=== PATIENT | female | born 1965 | race Caucasian/White ===

== ENCOUNTER 2023-03-19 12:02 | Outpatient (REF) | payer OTHER, SELFPAY ==
[2023-03-19 14:18] LABS: Erythrocyte Sedimentation Rate 23 MM/HR (0-20)
[2023-03-19 14:29] LABS: Alanine Aminotransferase 73 U/L (0-31); Albumin Level 4.4 g/dL (3.5-5.0); Alkaline Phosphatase 116 U/L (39-117); Anion Gap 17 (12-20); Aspartate Amino Transferase 144 U/L (5-31); Bilirubin Total 0.7 mg/dL (0.0-1.0); Blood Urea Nitrogen 5 mg/dL (9-16); C Reactive Protein 2.23 mg/dL (< or = 0.50); Calcium 10.2 mg/dL (8.4-10.2); Carbon Dioxide 27 mmol/L (22-29); Chloride 98 mmol/L (96-108); Cholesterol 215 mg/dL (<200); Estimated Glomerular Filt Rate > 60; Glucose Random 87 mg/dL (60-115); HDL Cholesterol 38 mg/dL (>40); LDL Cholesterol Calculated 152 mg/dL (<100); Potassium 2.6 mmol/L (3.3-5.1); Sodium 139 mmol/L (135-145); Total Protein 8.5 g/dL (6.5-8.0); Triglycerides 129 mg/dL (<150)
== END 2023-03-19 12:03 | disposition home or self-care (01) ==
LOC: HO.HHCL 12:02
PROVIDERS: Visit Provider General Practice
DX: I10 Essential (primary) hypertension (principal); M25.511 Pain in right shoulder; M25.512 Pain in left shoulder
CPT/HCPCS: 36415; 73030; 80053; 80061; 85652; 86140

== ENCOUNTER 2023-09-12 14:14 | Outpatient (REF) | payer MEDICAID, SELFPAY ==
[2023-09-12 16:50] LABS: MANUAL DIFF FLAG NO
[2023-09-12 17:05] LABS: Alanine Aminotransferase 86 U/L (0-31); Albumin Level 4.7 g/dL (3.5-5.0); Alkaline Phosphatase 113 U/L (39-117); Anion Gap 16 (12-20); Aspartate Amino Transferase 116 U/L (5-31); Bilirubin Total 0.5 mg/dL (0.0-1.0); Blood Urea Nitrogen 12 mg/dL (9-16); C Reactive Protein 1.01 mg/dL (< or = 0.50); Calcium 10.3 mg/dL (8.4-10.2); Carbon Dioxide 25 mmol/L (22-29); Chloride 102 mmol/L (96-108); Estimated Glomerular Filt Rate > 60; Glucose Random 111 mg/dL (60-115); Potassium 3.4 mmol/L (3.3-5.1); Sodium 140 mmol/L (135-145); Total Protein 8.9 g/dL (6.5-8.0)
[2023-09-12 17:23] LABS: Basophils Absolute Auto 0.1 X10*3/uL (0.0-0.2); Basophils Percent Auto 0.4 % (0-2); Eosinophils Absolute Auto 0.1 X10*3/uL (0.0-0.4); Hematocrit 44.7 % (37.0-47.0); Hemoglobin 15.1 g/dl (12.0-16.0); Imm Gran Abs Auto 0.06 X10*3/uL (0.00-0.03); Imm Gran Pct Auto 0.4 % (0.0-0.4); Lymphocytes Absolute Auto 3.2 X10*3/uL (1.2-4.9); Lymphocytes Percent Auto 23.1 % (20-40); Mean Corpuscular HGB Conc 33.8 g/dl (31.0-35.0); Mean Corpuscular Volume 97.8 fL (80.0-98.0); Monocytes Absolute Auto 0.6 X10*3/uL (0.1-1.2); Monocytes Percent Auto 4.5 % (2-11); Neutrophils Absolute Auto 9.6 x10*3/uL (2.0-8.3); Neutrophils Percent Auto 70.6 % (45-73); Platelet Count 236 X10*3/uL (160-400); Red Blood Count 4.57 X10*6/uL (4.20-5.50); Red Cell Distribution Width 12.4 % (11.0-16.0); White Blood Count 13.6 X10*3/uL (4.8-10.8)
[2023-09-12 18:07] LABS: Folate > 20.0 ng/mL (> or = 4.0); Vitamin B12 287 pg/mL (200-900)
[2023-09-12 18:54] LABS: Erythrocyte Sedimentation Rate 32 MM/HR (0-20)
[2023-09-15 09:28] LABS: RPR Rapid Plasma Reagin NON-REACTIVE (NON-REACTIVE)
[2023-09-16 17:58] LABS: CK-BB None Detected (None Detected); CK-MB 0 % (<5); CK-MM 100 % (95-100); Creatine Kinase,Total,Serum 38 U/L (29-143)
== END 2023-09-12 14:15 | disposition home or self-care (01) ==
LOC: HO.HHCL 14:14
PROVIDERS: Visit Provider General Practice
DX: E87.6 Hypokalemia (principal); G62.9 Polyneuropathy, unspecified
CPT/HCPCS: 36415; 80053; 82552; 82607; 82746; 85025; 85652; 86140; 86592

== ENCOUNTER 2024-08-09 08:54 | Outpatient (REF) | payer MEDICAID, SELFPAY ==
--- OUTSIDE RECORDS SUMMARY | 2024-08-09 09:25 | XMS_ITS | Encounter Summary ---
Author Organization [employer] Address [address] [place] [address] Care Team Providers Care Die Presser Name Role Phone Alissa Farnsworth MD Primary Care Provider [phone] Reason for Visit * Reason Comments Med Refill Encounter Details Date Type Department Care Team (Late st Contact Info) Description 07/31/2024 Refill [facility] MEDICINE [address] [place], [place] [id number] Alissa Farnsworth MD [address] [place] [address] Hypokalemia Social History Tobacco Use Types Packs/Day Years Used Date Smoking Tobacco: Every Day Cigarettes Smokeless Tobacco: Never Alcohol Use Standard Drinks/Week Comments Yes 2 (1 standard drink = 0.6 oz pur e alcohol) Depression Answer Date Recorded Patient Health Questionnaire-9 Score 12 07/26/2024 Patient Health Questionnaire-9 Score 12 07/26/2024 Last PHQ-9: Questionnaire Data Not on file 0 07/26/2024 Housing Stability Answer Date Recorded What is your housing situation today? I have arlene ochoa 07/26/[address] you li ve. Do you have problems with any of the following? None of the above 07/26/2024 Food Insecurity Answer Date Recorded Within the past 12 months, y ou worried that your food would run out before you got money to buy more: Never True 07/26/2024 Within the past 12 months,th e food you bought just didn't last and you didn't have enough money to get more: Never True 03/2025 Transportation Answer Date Recorded In the past 12 months, has l ack of transportation kept you from medical appts, meetings, work or from getting things needed for daily living? No 07/26/2024 Utilities Answer Date Recorded In the past 12 months, has t he electric, gas, oil or water company threatened to shut off services in your home? No 07/26/2024 Depression Answer Date Recorded Patient Health Questionnaire-2 Score 2 07/26/2024 Internet Access Answer Date Recorded Internet Access Q1 Yes 07/26/2024 Internet Access Q2 Not on file 07/26/2024 Comments Unknown Sex and Gender Information Value Date Recorded Sex Assigned at Female 01/07/2023 11:56 AM EDT Legal Sex Female 11:55 AM EDT Gender Identity Female 01/07/2023 11:56 AM EDT Sexual Orientation Choose not to disclose 2022 12:08 PM EDT Sexual Orientation Straight 02/01/2023 12 :08 PM EDT documented as of this encounter Plan of Treatment Upcoming Encounters Date Type Department Care Team (Late st Contact Info) Description 09/06/2024 9:15 AM EDT Office Visit [facility] MED & PEDS [address] [place] [address] Syed Ceron MD [address] [place], [place] [phone] documented as of this encounter Visit Diagnoses Diagnosis Hypokalemia Hypopotassemia documented in this encounter Additional Health Concerns Assessment Noted Time PHQ-9 Depression Total Score: 12 025 4:01 PM EST documented as of this encounter Care Teams Die Presser Relationship Specialty Start Date End Date Alissa Farnsworth MD [address] [place] [address] PCP - General Family Medicine 02/01/23 documented as of this encounter
--- OUTSIDE RECORDS SUMMARY | 2024-08-09 09:25 | XMS_ITS | Encounter Summary ---
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 Encounter Details Date Type Department Care Team ([facility] Contact Info) Description 07/30/2024 1:45 PM EST Telemedicine [facility] MEDICINE [address] [place] [address] Syed Ceron MD [address] [place] [address] Severe alcohol use disorder (CMS/HCC) (Primary Dx); Tobacco abuse Social History Tobacco Use Types Packs/Day Years [...] PM EDT documented as of this encounter Progress Notes * Syed Ceron MD - 07/30/2024 1:45 PM EST AUD PHYSICIAN TELE-VISIT INTAKE 07/30/2024 DSM-5 AUD Score: 10 (severe) Patient presents for AUD intake via Tele-Visit due to transportation issue. Patient with a long history of alcohol use disorder. Interested in starting Naltrexone PO for MAT. PCP previously prescribed this medication, but states she never started the medication at the time. Alcohol use started in the early 20's. The use became heavy in the late 30's when she went through divorce and custody issues. Use became even heavier at the onset of the COVID-19 pandemic. Was drinking 5-6 mixed drinks daily, now down to 2-3 drinks daily. States never had a day without alcohol in the past 5 years. No issues with opiates or cocaine. Currently smokes 1/4 PPD. Interested in Nicotine substitute. 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 Had several falls, resulting in subduralhematoma and left wrist fracture, s/p ORIF (11/2022). Never had inpatient detox, but may have been under a [facility] protocol during hospital admission for medical issues. Never had residential rehabilitation. Also she was never diagnosed with seizure, she found herself fallen few times (with LOC) with unexplained bruising, tongue laceration, and urine incontinence. These were not witnessed. Not sure of any alcohol-withdrawal seizure or DT in the past. [facility] EEG was done by Neurology (was told inconclusive). Lives with her monogamous AMAB partner of 7 years. [facility] she had negative STI screening previously. Also lives with her partner's son. Both supportive of her endeavor for alcohol recovery. She was recently started on Gabapentin for pain, but reports the medication has been helpful with her balance/gait and alcohol craving as well. She feels her balance is about 70% back to baseline (marbella was 20%). Patient doesn't have access to internet and camera for video. Patient gave verbal consent to be seen in this manner. A complete assessment and plan is detailed in the note, all of which were conducted remotely using virtual technology; video was offered but patient was unable to support video techno logy. Patient identity was verbally confirmed with 2 identifiers at the start of the visit. Patientverbalized being located in the [facility] during the televisit. Provider was located in an Ambulatory exam room at a secure location during the visits. Review of Systems Psychiatric/Behavioral: Negative for behavioral problems and dysphoric mood. The patient is not nervous/anxious. Physical Exam Pulmonary: Effort: Pulmonary effort is normal. Neurological: Mental Status: She is alert. Psychiatric: Mood and Affect: Mood normal. Behavior: Behavior normal. 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 Diagnoses and all orders for this visit: Severe alcohol use disorder (CMS/HCC) (Primary) - CBC auto differential; Future - Comprehensive Metabolic Panel; Future - Prothrombin Time-INR; Future - Hepatitis B Surface Antibody, Qualitative; Future - Hepatitis A Antibody, Total; Future - Hepatitis C Antibody with Reflex to HCV, RNA, Quantitative, Real-Time PCR; Future - Vitamin B12/Folate, Serum Panel; Future Tobacco abuse - nicotine (Nicoderm, Step 3) 7 MG/24HR patch; Place 1 patch on the skin 1 (one) time each day at the same time. Remove before going to bed Patient with AUD presents virtually for an intake Has a scheduled in-person appointment on 08/09/2024 at [facility] Interested in MAT for his AUD Motivated to focus on her alcohol recovery journey Will check CBC, CMP, INR, and Vitamin B12/Folate Will check Hep A/B vaccine status Rx Nicotine patch 7mg/24hr for 1/4 PPD use Various MAT options reviewed Potential adverse effects of medications reviewed Reviewed risks, benefits and alternatives Discussed about the risks of alcohol withdrawal in a home setting, including DT, seizure and Gradual taper of alcohol recommended BH and AA support recommended CRS GBAT option reviewed Follow up on 08/09/2024 as scheduled Referral for BH therapy submitted by PCP (for MDD) Indications for ER and inpatient detox reviewed Advised to contact the clinic with any worsening symptoms This information has been disclosed to you from records protected by federal confidentiality rules (42 CFR Part 2). The federal rules prohibit you from making any further disclosure of information inthis record that identifies a patient as having or having had a substance use disorder either directly, by reference to publicly available information, or through verification of such identification by another person unless further disclosure is expressly permitted by the written consent of the individual whose information is being disclosed or as otherwise permitted by (see2.3.1). The federal rules restrict any use of the information to investigate or prosecute with regard to a crime any patient with a substance use disorder, except as provided at 2.12??(5) and 2.65. documented in this encounter Plan of Treatment Upcoming Encounters Date Type Department Care Team (Late st Contact Info) Description 09/06/2024 9:15 AM EDT Office Visit [facility] MED & PEDS [address] [place] [address] Syed Ceron MD [address] [place] [address] Scheduled Orders Name Type Priority Associated Diagnoses Orde r Schedule CBC auto differential Lab Routine Severe alcohol use disorder (CMS/HCC) Expected: 07/30/2024 (Approximate), Expires: 07/30/2025 Comprehensive Metabolic Panel Lab Routine Severe alcohol use disorder (CMS/HCC) Expected: 07/30/2024 (Approximate), Expires: 07/30/2025 Prothrombin Time-INR Lab Routine Severe alcohol use disorder (CMS/HCC) Expected: 07/30/2024, Expires: 07/30/2025 Hepatitis B Surface Antibody, Qualitative Lab Routine Severe alcohol use disorder (CMS/HCC) Expected: 07/30/2024 (Approximate), Expires: 07/30/2025 Hepatitis A Antibody, Total Lab Routine Severe alcohol use disorder (CMS/HCC) Expected: 07/30/2024 (Approximate), Expires: 07/30/2025 Hepatitis C Antibody with Reflex to HCV, RNA, Quantitative, Real-Time PCR Lab Routine Severe alcohol use disorder (CMS/HCC) Expected: 07/30/2024 (Approximate), Expires: 07/30/2025 Vitamin B12/Folate, Serum Panel Lab Routine Severe alcohol use disorder (CMS/HCC) Expected: 07/30/2024, Expires: 07/30/2025 documented as of this encounter Visit Diagnoses Diagnosis Severe alcohol use disorder (CMS/HCC)- Primary Tobacco abuse Tobacco use disorder documented in this encounter Additional Health Concerns Assessment Noted Time PHQ-9 Depression Total Score: 12 025 4:01 PM EST documented as of this encounter Care Teams Inside Sales Relationship Specialty Start Date End Date Alissa Farnsworth MD [address] [place] [address] PCP - General Family Medicine 02/01/23 documented as of this encounter
--- OUTSIDE RECORDS SUMMARY | 2024-08-09 09:25 | XMS_ITS | Encounter Summary ---
Author Organization [employer] Address [address] [place] [address] Care Team Providers Care Pediatric Speech Therapist Name Role Phone Alissa Farnsworth MD Primary Care Provider [phone] Encounter Details Date Type Department Care Team (Latest Contact Info) Description 07/26/2024 Travel Social History Tobacco Use Types Packs/Day Years [...] Description 09/06/2024 9:15 AM EDT Office Visit [facility] MED & PEDS [address] [place] [address] Syed Ceron MD [address] [place] [address] documented as of this encounter Visit Diagnoses Not on filedocumented in this encounter Additional Health Concerns Assessment Noted Time PHQ-9 Depression Total Score: 12 025 4:01 PM EST documented as of this encounter Care Teams Pediatric Speech Therapist Relationship Specialty Start Date End Date Alissa Farnsworth MD [address] [place] [address] PCP - General Family Medicine 02/01/23 documented as of this encounter
--- OUTSIDE RECORDS SUMMARY | 2024-08-09 09:25 | XMS_ITS | Encounter Summary ---
Author Organization [employer] Address [address] [place] [address] Care Team Providers Care Model Engine Mechanic Name Role Phone Alissa Farnsworth MD Primary Care Provider [phone] Encounter Details Date Type Department Care Team (Latest Contact Info) Description 07/30/2024 Travel Social History Tobacco Use Types Packs/Day [...] Description 09/06/2024 9:15 AM EDT Office Visit [facility] MED & PEDS [address] [place] [address] Syed Ceron MD [address] [place] [address] documented as of this encounter Visit Diagnoses Not on filedocumented in this encounter Additional Health Concerns Assessment Noted Time PHQ-9 Depression Total Score: 12 025 4:01 PM EST documented as of this encounter Care Teams Model Engine Mechanic Relationship Specialty Start Date End Date Alissa Farnsworth MD [address] [place] [address] PCP - General Family Medicine 02/01/23 documented as of this encounter
--- OUTSIDE RECORDS SUMMARY | 2024-08-09 09:25 | XMS_ITS | Encounter Summary ---
Author Organization [email or web address] Address [address] [place] [address] Care Team Providers Care Cartoon Artist Name Role Phone Alissa Farnsworth MD Primary Care Provider [phone] Encounter Details Date Type Department Care Team (Late Contact Info) Description 03/19/2023 Orders Only [facility] MEDICINE [address] [place] [id number] Alissa Farnsworth MD [address] [place] [address] Social History Tobacco Use Types Packs/Day Years Used Date Smoking Tobacco: Every Day Cigarettes Smokeless Tobacco: Never Alcohol Use Standard Drinks/Week Comments Yes 2 (1 standard drink = 0.6 oz pur e alcohol) Depression Answer Date Recorded Patient Health Questionnaire-9 Score 19 02/10/2023 Depression Answer Date Recorded Patient Health Questionnaire-2 Score 6 02/10/2023 Comments Unknown Sex and Gender Information Value [...] Encounters Date Type Department Care Team (Late Contact Info) Description 09/06/2024 9:15 AM EDT Office Visit [facility] MED & PEDS [address] [place] [address] Syed Ceron MD [address] [place] [address] documented as of this encounter Visit Diagnoses Not on filedocumented in this encounter Additional Health Concerns Assessment Noted Time PHQ-9 Depression Total Score: 19 023 10:36 PM EDT documented as of this encounter Care Teams Cartoon Artist Relationship Specialty Start Date End Date Alissa Farnsworth MD [address] [place] [address] PCP - General Family Medicine 02/01/23 documented as of this encounter
--- OUTSIDE RECORDS SUMMARY | 2024-08-09 09:25 | XMS_ITS | Encounter Summary ---
Author Organization [employer] Address [address] [facility] [address] [place] [address] Care Team Providers Care Bid Writer Name Role Phone Alissa Farnsworth MD Primary Care Provider [phone] Reason for Referral * Consultation (Routine) - Closed Specialty Diagnoses / Procedures Referred By Saul t Referred To Contact Behavioral Health Diagnoses Moderate episode of recurrent major depressive disorder (CMS/HCC) Anxiety Alissa Farnsworth MD [address] [place] [phone] Phone: tel: fax: Referral ID Status Reason Start Date Expiration Date V isits Requested Visits Authorized [id number] Closed Specialty Services Required 07/27/2024 07/27/2025 1 1 * Consultation (Urgent) - Closed Specialty Diagnoses / Procedures Referred By Contac t Referred To Contact Addiction Medicine Diagnoses Alcohol use disorder, moderate, dependence (CMS/HCC) Alissa Farnsworth MD [address] [place] [phone] Phone: tel: fax: Referral ID Status Reason Start Date Expiration Date V isits Requested Visits Authorized [id number] Closed Specialty Services Required 07/27/2024 07/27/2025 1 1 * Consultation (Routine) - Pending Review Specialty Diagnoses / Procedures Referred By Contac t Referred To Contact Audiology Diagnoses Mixed conductive and sensorineural hearing loss of both ears Alissa Farnsworth MD [address] [place] [address] Phone: tel: fax: [facility] Referral ID Status Reason Start Date Expiration Date Visits Requested Visits Authorized [id number] Pending Review Specialty Services Required 07/30/2024 07/30/2025 6 6 Reason for Visit * Reason Comments Follow-up Encounter Details Date Type Department Care Team (Latest Contact Info) Description 07/26/2024 4:00 PM EST Office Visit [facility] MEDICINE [address] [place] [address] [phone] Alissa Farnsworth MD [address] [place] [address] [phone] Gait instability (Primary Dx); Encounter for immunization; Alcohol use disorder, moderate, dependence (CMS/HCC); Moderate episode of recurrent major depressive disorder (CMS/HCC); Anxiety; Mixed conductive and sensorineural hearing loss of both ears Social History Tobacco Use Types Packs/Day Years Used Date Smoking Tobacco: Every Day Cigarettes Smokeless Tobacco: Never Tobacco Cessation:Ready to Q uit: Not Asked; Counseling Given: Not Answered Alcohol Use Standard Drinks/Week Comments Yes 2 [...] PM EDT documented as of this encounter Last Filed Vital Signs Vital Sign Reading Time Taken Comments Blood Pressure 161/79 07/26/2024 3:58 PM EST Pulse 92 07/26/2024 3:58 PM EST Temperature 37.1 ??C (98.7 ??F) 07/26/2024 3:58 PM ES T Respiratory Rate 16 07/26/2024 3:58 PM EST Oxygen Saturation 100% 07/26/2024 3:58 PM EST Inhaled Oxygen Concentration - - Weight 57.2 kg (126 lb) 07/26/2024 3:58 PM EST Height 160 cm (5' 3 ) 07/26/2024 3:58 PM EST Body Mass Index 22.32 07/26/2024 3:58 PM EST documented in this encounter Progress Notes * Alissa Farnsworth MD - 07/26/2024 4:00 PM EST SUBJECTIVE: Mathew Herrmann is a 58 y.o. year old female who presents for chronic disease management. Denies recent illness, ER visit, or hospitalization. Acute Concerns: Hearing test, L side worse. Audiology to [facility] Referral back to for BE Referral to Dr Licea Interim Updates: Interim Updates: Alcohol induced gait disorder S/P multiple falls Hospitalized at [facility] for fall down flight of stairs (December 2022), with brain bleed and L wrist s/p ORIF Having trouble walking, her legs feel like lead, L more than R, she cannot drive, walks with woodenstiff posture. Pain feels worse and like it is moving upwards. Cannot go up and down stairs. 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 Paul HTN- BP 130s/80s at home, 161/79 here Did not take BP med today, denies CP, arm pain, SIMS Taking Amlodipine 5mg daily Anxiety Called for to start OP therapy referral process Infected teeth- awaiting extractions PSH: ORIF L wrist radius and ulnar fracture November 2022 Gallbladder removal BTL Breast biopsy- 2 years ago and benign results FH: Mom- stomach cancer Dad- larynx cancer GP from [facility] Health maintenance: Imms- accepts PCV20 today Colon- never, Cologuard ordered Pap- not since 1991 Mammo- 2020 last, due Eyes- not for years, referral placed 10/2023 Patient Active Problem List Diagnosis Alcohol use disorder, moderate, dependence (CMS/HCC) GERD (gastroesophageal reflux disease) Hypertension Tobacco abuse Anxiety Housing or economic circumstance MDD (major depressive disorder) MARTHA (generalized anxiety disorder) Healthcare maintenance Pain of both shoulder joints Screening for colon cancer Acute pain of both shoulders Encounter for screening mammogram for malignant neoplasm of breast Gait instability Vertebral artery stenosis, asymptomatic, right History reviewed. No pertinent surgical history. No family history on file. Social History Social History Narrative Lives with [employer] partner Unemployed, looking for work Review of Systems Constitutional: Negative. HENT: Negative. Respiratory: Negative. Cardiovascular: Negative. Musculoskeletal: Positive for gait problem. Neurological: Positive for weakness. Psychiatric/Behavioral: Positive for dysphoric mood. OBJECTIVE: Vitals: 07/26/24 1558 BP: (!) 161/79 BP Location: Right arm Patient Position: Sitting BP Cuff Size: Adult Pulse: 92 Resp: 16 Temp: 98.7 ??F (37.1 ??C) TempSrc: Temporal SpO2: 100% Weight: 126 lb (57.2 kg) Height: 5' 3 (1.6 m) Physical Exam Vitals and nursing note reviewed. Constitutional: Appearance: Normal appearance. HENT: Head: Normocephalic and atraumatic. Cardiovascular: Rate and Rhythm: Normal rate and regular rhythm. Pulses: Normal pulses. Heart sounds: Normal heart sounds. Pulmonary: Effort: Pulmonary effort is normal. Breath sounds: Normal breath sounds. Musculoskeletal: Comments: Unsteady gait, walking with cane and assistance from others Skin: General: Skin is warm and dry. Neurological: General: No focal deficit present. Mental Status: She is alert and oriented to person, place, and time. Mental status is at baseline. Motor: Weakness present. Gait: Gait abnormal. Psychiatric: Mood and Affect: Mood normal. Behavior: Behavior normal. ASSESSMENT/PLAN Problem List Items Addressed This Visit Alcohol use disorder, moderate, dependence (CMS/HCC) Relevant Orders Referral to CRS Alcohol Use Disease Anxiety Relevant Orders Referral to Behavioral Health MDD (major depressive disorder) Relevant Orders Referral to Behavioral Health Gait instability - Primary Other Visit Diagnoses Encounter for immunization Relevant Orders PCV-20 VACCINE 6 wks + (Completed) Mixed conductive and sensorineural hearing loss of both ears Relevant Orders Referral to Audiology Follow Up: 4 months or sooner prn No Known Allergies Current Outpatient Medications: potassium chloride ER (Micro-K) 10 MEQ ER capsule, TAKE 2 CAPSULES (20 MEQ) BY MOUTH IN THE MORNING. DO NOT CRUSH OR CHEW., Disp: , Rfl: acetaminophen (Tylenol) 500 MG tablet, TAKE 1 TABLET BY MOUTH EVERY 6 HOURS FOR 14 DAYS NEEDED FOR PAIN OR FEVER. TAKE WITH FOOD, Disp: , Rfl: amLODIPine (Norvasc) 5 MG tablet, Take 1 tablet (5 mg) by mouth Once per day., Disp: 90 tablet, Rfl: 3 aspirin 81 MG EC tablet, Take 1 tablet (81 mg) by mouth Once per day., Disp: 90 tablet, Rfl: 3 escitalopram (Lexapro) 5 MG tablet, Take 1 tablet (5 mg) by mouth Once per day., Disp: 30 tablet, Rfl: 2 fluticasone (Flonase) 50 MCG/ACT nasal spray, Administer 1-2 sprays into each nostril Once per day.Shake gently. Before first use, prime pump. After use, clean tip and replace cap., Disp: 16 g, Rfl:3 folic acid (Folvite) 1 MG tablet, Take 1 tablet (1 mg) by mouth Once per day., Disp: 90 tablet, Rfl: 3 gabapentin (Neurontin) 300 MG capsule, Take 1 capsule (300 mg) by mouth 3 times daily., Disp: 90 capsule, Rfl: 11 guaiFENesin (Mucinex) 600 MG 12 hr tablet, Take 2 tablets (1,200 mg) by mouth 2 times daily. Do notcrush, chew, or split., Disp: 120 tablet, Rfl: 11 ibuprofen 600 MG tablet, Take 1 tablet (600 mg) by mouth every 6 (six) hours., Disp: 90 tablet, Rfl: 3 sertraline (Zoloft) 50 MG tablet, Take 1 tablet (50 mg) by mouth Once per day., Disp: 90 tablet, Rfl: 3 triamcinolone (Kenalog) 0.1 % cream, Apply topically if needed in the morning and at bedtime (pain and swelling)., Disp: 30 g, Rfl: 2 Serbian Translation: Patient is bilingual and declines translation services documented in this encounter Plan of Treatment Upcoming Encounters Date Type Department Care Team (Late st Contact Info) Description 09/06/2024 9:15 AM EDT Office Visit [facility] MED & PEDS [address] [place] [phone] Syed Ceron MD [address] [place] [phone] Scheduled Referrals Name Type Priority Associated Diagnoses Orde r Schedule Referral to Audiology Outpatient Referral Routine Mixed conductive and sensorineural hearing loss of both ears Expected: 07/27/2024 (Approximate), Expires: 07/27/2025 Referral to CRS Alcohol Use Disease Outpatient Referral Urgent Alcohol use disorder, moderate, dependence (CMS/HCC) Expected: 07/27/2024 (Approximate), Expires: 07/27/2025 Referral to Behavioral Health Outpatient Referral Routine Moderate episode of recurrent major depressive disorder (CMS/HCC) Anxiety Expected: 07/27/2024 (Approximate), Expires: 07/27/2025 documented as of this encounter Visit Diagnoses Diagnosis Gait instability- Primary Abnormality of gait Encounter for immunization Alcohol use disorder, moderate, dependence ([facility]) Moderate episode of recurrent major depressive disorder ([facility]) Anxiety Anxiety state, unspecified Mixed conductive and sensorineural hearing loss of both ears documented in this encounter Additional Health Concerns Assessment Noted Time PHQ-9 Depression Total Score: 12 025 4:01 PM EST documented as of this encounter Care Teams Bid Writer Relationship Specialty Start Date End Date Alissa Farnsworth MD [address] [place] [address] PCP - General Family Medicine 02/01/23 documented as of this encounter
--- OUTSIDE RECORDS SUMMARY | 2024-08-09 09:25 | XMS_ITS | Encounter Summary ---
Author Organization [employer] Address [address] [place] [address] Care Team Providers Care Recovery Operator Name Role Phone Alissa Farnsworth MD Primary Care Provider [phone] Reason for Visit * Reason Onset Date Comments Call Back Request 11/28/2023 Encounter Details Date Type Department Care Team ([facility] st Contact Info) Description 11/28/2023 Telephone [facility] MEDICINE [address] [place], [place] [phone] Alissa Farnsworth MD [address] [place] [address] Call Back Request Social History Tobacco Use Types Packs/Day Years Used Date Smoking Tobacco: Every Day Cigarettes Smokeless Tobacco: Never Alcohol Use Standard Drinks/Week Comments Yes 2 (1 standard drink = 0.6 oz pur e alcohol) Depression Answer Date Recorded Patient Health Questionnaire-9 Score 19 02/10/2023 Housing Stability Answer Date Recorded What is your housing situation today? I have arlene ochoa 04/15/[address] you li ve. Do you have problems with any of the following? None of the above 04/15/2023 Food Insecurity Answer Date Recorded Within the past 12 months, y ou worried that your food would run out before you got money to buy more: Never True 04/15/2023 Within the past 12 months,th e food you bought just didn't last and you didn't have enough money to get more: Never True Transportation Answer Date Recorded In the past 12 months, has l ack of transportation kept you from medical appts, meetings, work or from getting things needed for daily living? No 04/15/2023 Utilities Answer Date Recorded In the past 12 months, has t he electric, gas, oil or water company threatened to shut off services in your home? No 04/15/2023 Depression Answer Date Recorded Patient Health Questionnaire-2 Score 6 02/10/2023 Comments Unknown Sex and Gender Information Value Date Recorded Sex Assigned at Female 01/07/2023 11:56 AM EDT Legal Sex Female 11:55 AM EDT Gender Identity Female 01/07/2023 11:56 AM EDT Sexual Orientation Choose not to disclose 2022 12:08 PM EDT Sexual Orientation Straight 02/01/2023 12 :08 PM EDT documented as of this encounter Miscellaneous Notes * Telephone Encounter - Ninoska Eddy - 11/28/2023 11:09 AM EDT Tc from pt requesting to speak with a nurse in regards to DTA form. States form was completed but when faxed, form was unreadable. Pt states called medical records to lease picker a copy but was told to contact PCP as they could not find form. Pt needs to turn in form as soon as possible. Please contact pt at [phone] documented in this encounter Plan of Treatment Upcoming Encounters Date Type Department Care Team (Late st Contact Info) Description 09/06/2024 9:15 AM EDT Office Visit [facility] MED & PEDS [address] [place] [address] Syed Ceron MD [address] [place] [address] documented as of this encounter Visit Diagnoses Not on filedocumented in this encounter Additional Health Concerns Assessment Noted Time PHQ-9 Depression Total Score: 19 023 10:36 PM EDT documented as of this encounter Care Teams Recovery Operator Relationship Specialty Start Date End Date Alissa Farnsworth MD [address] [place] [address] PCP - General Family Medicine 02/01/23 documented as of this encounter
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
--- OUTSIDE RECORDS SUMMARY | 2024-08-09 09:25 | XMS_ITS | Encounter Summary ---
Author Organization [employer] Address [address] [address] [place] [address] Care Team Providers Care Business Office Coordinator Name Role Phone Alissa Farnsworth MD Primary Care Provider [phone] Encounter Details Date Type Department Care Team (Latest Contact Info) Description 08/09/2024 Travel Social History Tobacco Use Types Packs/Day [...] Description 09/06/2024 9:15 AM EDT Office Visit [facility] MED & PEDS [address] [place] [address] Syed Ceron MD [address] [place] [address] documented as of this encounter Visit Diagnoses Not on filedocumented in this encounter Additional Health Concerns Assessment Noted Time PHQ-9 Depression Total Score: 12 025 4:01 PM EST documented as of this encounter Care Teams Business Office Coordinator Relationship Specialty Start Date End Date Alissa Farnsworth MD [address] [place] [address] PCP - General Family Medicine 02/01/23 documented as of this encounter
--- OUTSIDE RECORDS SUMMARY | 2024-08-09 09:25 | XMS_ITS | Clinical Summary ---
Author Organization [employer] Address [address] [place] [address] Care Team Providers Care Customer Greeter Name Role Phone Alissa Farnsworth MD Primary Care Provider [phone] Allergies No known active allergies Medications * This document contains information received from the source organization and may not represent a complete record from that organization. acetaminophen (Tylenol) 500 MG tablet TAKE 1 TABLET BY MOUTH EVERY 6 HOURS FOR 14 DAYS NEEDED FOR PAIN OR FEVER. TAKE WITH FOOD 11/21/19 23 Active triamcinolone (Kenalog) 0.1 % cream Apply topically if needed in the morning and at bedtime (pain and swelling). 30 g 2 09/12/19 24 Active sertraline (Zoloft) 50 MG tablet Take 1 tablet (50 mg) by mouth Once per day. 90 tablet 3 10/27/19 24 025 Active ibuprofen 600 MG tablet Take 1 tablet (600 mg) by mouth every 6 (six) hours. 90 tablet 3 07/26/19 25 Active escitalopram (Lexapro) 5 MG tablet Take 1 tablet (5 mg) by mouth Once per day. 30 tablet 2 07/26/19 25 025 Active aspirin 81 MG EC tablet Take 1 tablet (81 mg) by mouth Once per day. 90 tablet 3 07/26/19 25 Active folic acid (Folvite) 1 MG tablet Take 1 tablet (1 mg) by mouth Once per day. 90 tablet 3 07/26/19 25 026 Active amLODIPine (Norvasc) 5 MG tablet Take 1 tablet (5 mg) by mouth Once per day. 90 tablet 3 07/26/19 25 Active gabapentin (Neurontin) 300 MG capsule Take 1 capsule (300 mg) by mouth 3 times daily. 90 capsule 07/26/19 Active guaiFENesin (Mucinex) 600 MG 12 hr tablet Take 2 tablets (1,200 mg) by mouth 2 times daily. Do not crush, chew, or split. 120 tablet 07/26/19 Active fluticasone (Flonase) 50 MCG/ACT nasal spray Administer 1-2 sprays into each nostril Once per day. Shake gently. Before first use, prime pump. After use, clean tip and replace cap. 16 g 07/26/19 Active nicotine (Nicoderm, Step 3) 7 MG/24HR patchIndicatio ns:Nicotine Dependence Place 1 patch on the skin 1 (one) time each day at the same time. Remove before going to bed 28 patch 2 07/30/19 Active potassium chloride ER (Micro-K) 10 MEQ ER capsuleIndicat ions:Hypokalem ia TAKE 2 CAPSULES (20 MEQ) BY MOUTH IN THE MORNING. DO NOT CRUSH OR CHEW. 180 capsule 1 08/03/19 Active ibuprofen 600 MG tablet Take 1 tablet by mouth every 6 (six) hours. 11/21/19 025 Discontinued(Re order (will not trigger notification to Pharmacy)) amLODIPine (Norvasc) 5 MG tablet Take 1 tablet (5 mg) by mouth Once per day. 90 tablet 3 10/27/19 025 Discontinued(Re order (will not trigger notification to Pharmacy)) aspirin 81 MG EC tablet Take 1 tablet (81 mg) by mouth Once per day. 90 tablet 3 10/27/19 025 Discontinued(Re order (will not trigger notification to Pharmacy)) folic acid (Folvite) 1 MG tablet Take 1 tablet (1 mg) by mouth Once per day. 90 tablet 3 10/27/19 025 Discontinued(Re order (will not trigger notification to Pharmacy)) potassium chloride ER (Micro-K) 10 MEQ ER capsule TAKE 2 CAPSULES (20 MEQ) BY MOUTH IN THE MORNING. DO NOT CRUSH OR CHEW. 04/25/20 025 Discontinued Active Problems Problem Noted Date Diagnosed Date Gait instability 09/15/2023 Assessment & Plan (10/27/2023 12:07 PM EDT): L sided weakness; seeing neurology tomorrow Continue alcohol abstinence as much as possible Brain MRI today to rule out central lesion, demyelinating process Assessment & Plan (09/15/2023 6:10 AM EDT): Legs feel leaden She is dragging feet and not picking them up well Risk for falling Order front wheeled walker for stability Vertebral artery stenosis, asymptomatic, right 0 09/15/2023 Assessment & Plan (09/15/2023 6:13 AM EDT): Found on CT for stroke rule out 08/2023 at [facility] Neurology recommended outpatient MRI with and w/o gadolinium Healthcare maintenance 03/20/2023 Pain of both shoulder joints 03/20/2023 Assessment & Plan (03/20/2023 10:50 AM EDT): Frozen shoulder versus OA versus inflammatory disease Screening for colon cancer 03/20/2023 Acute pain of both shoulders 03/20/2023 Encounter for screening mamm ogram for malignant neoplasm of breast 03/20/2023 MDD (major depressive disorder) 02/06/2023 Assessment & Plan (03/12/2023 9:54 AM EDT): Patient with symptoms of anhedonia, depressed mood, sleep disturbance, fatigued, poor appetite, feelings of guilt, difficulty concentrating, nervousness, restlessness, jumpy, irritability, chronic worrying and fearfulness. Symptoms occur nearly everyday and have been present for the last six months in the context of employment insecurities, chronic pain and severe depression. Referral for OP individual services placed on 02/12 with Migel Brown [phone]. Mathew was also referred to the Calculus Professor program with [facility]. Patient agreed with the plan. At this time Mathew Herrmann meets criteria for Visit Diagnoses: Problem List Items Addressed This Visit Other Alcohol use disorder, moderate, dependence (CMS/HCC) MDD (major depressive disorder) MARTHA (generalized anxiety disorder) Patient ready to address current needs Yes Strengths include readiness and willingness to change. PLAN: 1. Follow up with [facility]: Not recommended for follow-up 2. Patient goal is to gradually stop alcohol consumption and start individual therapy. 3. Behavioral Recommendations a. OP individual therapy b. Referral for Calculus Professor with [facility] c. Incorporate self-care and coping skills into daily routine Assessment & Plan (02/11/2023 5:01 PM EDT): Patient with symptoms of anhedonia, depressed mood, sleep disturbance, fatigued, poor appetite, feelings of guilt, difficulty concentrating and restlessness. MARTHA screening shows symptoms of nervousness, restlessness and jumpy, irritability, chronic worrying and afraid of the future. Symptoms occur nearly everyday and have been present for the last six months in the context of employment insecurities and struggling with medical conditions. Patient will benefit from receiving OP individual therapy and joining alcoholic anonymous groups. At this time Mathew Herrmann meets criteria for Visit Diagnoses: Problem List Items Addressed This Visit Other Alcohol use disorder, moderate, dependence (CMS/HCC) Anxiety MDD (major depressive disorder) Patient ready to address current needs Yes Strengths include motivation to make positive changes in her life PLAN: 1. Follow up with [facility]: Not recommended for follow-up 2. Patient goal is to gradually stop drinking 3. Behavioral Recommendations a. Referral to OP individual therapy b. Join alcoholics groups c. Practice mindfulness techniques MARTHA (generalized anxiety disorder) 02/06/2023 Assessment & Plan (09/15/2023 6:10 AM EDT): Started Zoloft 50mg nightly Buspar 5mg prn up to TID Followup in 4 weeks via telephone Assessment & Plan (03/12/2023 9:54 AM EDT): Patient with symptoms of anhedonia, depressed mood, sleep disturbance, fatigued, poor appetite, feelings of guilt, difficulty concentrating, nervousness, restlessness, jumpy, irritability, chronic worrying and fearfulness. Symptoms occur nearly everyday and have been present for the last six months in the context of employment insecurities, chronic pain and severe depression. Referral for OP individual services placed on 02/12 with Migel Brown [phone]. Mathew was also referred to the Calculus Professor program with [facility]. Patient agreed with the plan. At this time Mathew Herrmann meets criteria for Visit Diagnoses: Problem List Items Addressed This Visit Other Alcohol use disorder, moderate, dependence (CMS/HCC) MDD (major depressive disorder) MARTHA (generalized anxiety disorder) Patient ready to address current needs Yes Strengths include readiness and willingness to change. PLAN: 1. Follow up with [facility]: Not recommended for follow-up 2. Patient goal is to gradually stop alcohol consumption and start individual therapy. 3. Behavioral Recommendations a. OP individual therapy b. Referral for Calculus Professor with [facility] c. Incorporate self-care and coping skills into daily routine Alcohol use disorder, moderate, dependence 02/01 Assessment & Plan (10/27/2023 12:07 PM EDT): In eraly remission Recommend continued abstinence to the greatest degree possible Assessment & Plan (09/15/2023 6:09 AM EDT): Cutting back on her own Knows about groups, medication aids Assessment & Plan (03/20/2023 10:50 AM EDT): Declines Naltrexone Will work with inhouse temporarily Consider AUD services at [facility] Assessment & Plan (02/01/2023 11:01 AM EDT): Declines AUD services Has Naltrexone 50mg daily, has not started it GERD (gastroesophageal reflux disease) 3 Hypertension 02/01/2023 Assessment & Plan (09/15/2023 6:09 AM EDT): Continue Amlodipine 5mg daily Check BP daily Walkin/ER for > 180/100 or symptomatic Can increase Amlodipine to 10mg if needed Assessment & Plan (02/01/2023 11:01 AM EDT): Resume Amlodipine 5mg daily Check BP daily Walkin/ER for > 180/100 or symptomatic Labs when she comes to first visit Tobacco abuse 02/01/2023 Assessment & Plan (09/15/2023 6:09 AM EDT): Down to 4-5 cigs per day Continue cutting back Assessment & Plan (02/01/2023 11:02 AM EDT): Wants to cut back on her own first Anxiety 02/01/2023 Assessment & Plan (02/01/2023 11:02 AM EDT): PHQ9 score 24, no SI/HI Physical pain and anxiety and stress over economic circumstances are compounding for her Housing or economic circumstance 02/01/2023 Assessment & Plan (02/01/2023 11:02 AM EDT): [facility] referral Encounters * This document contains information received from the source organization and may not represent a complete record from that organization. Date Type Department Care Team Description 08/09/2024 9:15 AM EST Office Visit [facility] [address] [place] [address] Syed Ceron MD Severe alcohol use disorder (CMS/HCC) (Primary Dx) 08/09/2024 Travel 08/06/2024 Telephone [facility] [address] [place] [address] Alissa Farnsworth MD Nurse Triage 07/31/2024 Refill [facility] [address] [place] [address] Alissa Farnsworth MD Hypokalemia 07/30/2024 1:45 PM EST Telemedicine [facility] [address] [place] [address] Syed Ceron MD Severe alcohol use disorder (CMS/HCC) (Primary Dx); Tobacco abuse 07/30/2024 Travel 07/29/2024 Travel 07/26/2024 4:00 PM EST Office Visit [facility] [address] [place] [address] Alissa Farnsworth MD Gait instability (Primary Dx); Encounter for immunization; Alcohol use disorder, moderate, dependence (CMS/HCC); Moderate episode of recurrent major depressive disorder (CMS/HCC); Anxiety; Mixed conductive and sensorineural hearing loss of both ears 07/26/2024 Travel from Last 3 Months Immunizations Name Administration Dates Next Due Influenza Injectable Quadriv alant Preservative Free IIV4 MDCK 05/25/2021 Influenza injectable quadrivalent preservative f ree 03/19/2023,03/11/2020 Influenza, IIV3, injectable 04/24/2017 Influenza, Injectable, MDCK, preservative free 1 07/08/2023 Pneumococcal Conjugate PCV 20 07/26/2024 Pneumococcal Polysaccharide PPSV23 04/24/2017 Social History Tobacco Use Types Packs/Day Years [...] t he electric, gas, oil or water [employer] threatened to shut off services in your [...] Orientation Straight 02/01/2023 12 :08 PM EDT Last Filed Vital Signs Vital Sign Reading [...] Mass Index 22.32 07/26/2024 3:58 PM EST Plan of Treatment Upcoming Encounters Date Type Department Care Team (Late st Contact Info) Description 09/06/2024 9:15 AM EDT Office Visit [facility] [address] [place] [address] Syed Ceron MD [address] [place] [address] Health Maintenance Due Date Last Done Comments CT Colonography 1967 Colonoscopy 1967 FIT 1967 FOBT 1967 HIV Screening 1967 Sigmoidoscopy 1967 Alcohol/Substance Use Screening 1979 Hepatitis C Screening 11/13/1985 DTaP/Tdap/Td Vaccines (1 - Tdap) 11/13/1986 Hepatitis A Vaccines (1 of 2 - Risk 2-dose series) 11/13/1986 Hepatitis B Vaccines (1 of 3 - 19+ 3-dose series) 11/13/1986 Pap Smear 11/13/1988 Cervical Cancer Screening 11/13/1997 HPV/Cotest 11/13/1997 Mammogram 2007 Zoster Vaccines (1 of 2) 11/13/2017 Depression Monitoring (PHQ-9) 01/23/2025 07/26/2024, 07/26/2024 Depression Screening 07/26/2025 07/26/2024, 07/26/19 25 SDOH Screening 07/26/2025 07/26/2024 Tobacco Screening 07/27/2025 07/27/2024 Colorectal Cancer Screening 04/14/2026 FIT DNA/Cologuard 04/14/2026 04/14/2023 Lipid Panel 03/19/2028 03/19/2023 RSV Patients and Patients Aged 60 years or older (1 - 1-dose 75+ series) 11/13/2042 Influenza Vaccine Completed 05/08/2024, , 05/25/2021, Additional history exists COVID-19 Vaccine Completed 07/03/2024, 03/2021, 11/04/2020, Additional history exists Pneumococcal Vaccine: 50+ Years Completed 07/26/2024, 04/24/2017 HIB Vaccines Aged Out No longer eligi ble based on patient's age to complete this topic HPV Vaccines Aged Out No longer eligi ble based on patient's age to complete this topic IPV Vaccines Aged Out No longer eligi ble based on patient's age to complete this topic Meningococcal Vaccine Aged Out No andreea brady eligible based on patient's age to complete this topic RSV under 20 months Aged Out No longe r eligible based on patient's age to complete this topic Rotavirus Vaccines Aged Out No longer eligible based on patient's age to complete this topic Procedures Procedure Name Priority Date/Time Associated Diagnosis Comments POCT ALFA-14 URINE DRUG SCREEN Routine 08/09/2024 9:21 AM EST Severe alcohol use disorder (CMS/HCC) LAB COLOGUARD?? COLON CANCER SCREEN Routine 04/14/2023 9:40 AM EDT Screening for colon cancer LIPID PANEL, STANDARD Routine 03/19/2023 12:09 PM EDT Primary hypertension from Last 3 Months or Most Recently Relevant to Health Maintenance Results * POCT ALFA-14 Urine Drug Screen (08/09/2024 9:21 AM EST) THC Positive Cocaine Screen, Urine Negative Opiate Screen, Urine Negative Methamphetamine Screen Urine Negative Amphetamine Screen, Urine Negative Benzodiazepines Screen, Urine Negative Barbiturate Screen, Urine Negative Methadone Screen, Urine Negative Buprenophine Screen, Urine Negative TCA, Urine Negative MDMA Urine Negative ng/mL Oxycodone Screen, Urine Negative Phencyclidine (PCP), Urine Negative Propoxyphene, Urine Negative Urine Urine specimen obtained by clean catch procedure / Unknown 08/09/2024 9:21 AM EST Syed Ceron MD POINT OF CARE TEST ENTER/EDIT OR DERABLES Final Result * Cologuard?? colon cancer screening (04/14/2023 9:40 AM EDT) Pathologist [facility] Cologuard Result Negative Negative 04/18/20 7:07 PM EDT [facility] (CLIA #:[id number]) Comment: NEGATIVE TEST RESULT. A negative Cologuard result indicates a low likelihood that a colorectal cancer (CRC) or advanced adenoma (adenomatous polyps with more advanced pre-malignant features) ??is present. The chance that a person with a negative Cologuard test has a colorectal cancer is less than 1 in 1500 (negative predictive value >99.9%) or has an ??advanced adenoma is less than ??5.3% (negative predictive value 94.7%). These data are based on a prospective cross-sectional study of 10,000 individuals at average risk for colorectal cancer who were screened with both Cologuard and colonoscopy. (Delvis Larsen et al, N Engl J Med 2014;370(14):1286- 1297) The normal value (reference range) for this assay is negative. COLOGUARD RE-SCREENING RECOMMENDATION: Periodic colorectal cancer screening is an important part of preventive healthcare for asymptomatic individuals at average risk for colorectal cancer. ??Following a negative Cologuard result, the [place] [employer] Society and U.S. Multi-Society Task Force screening guidelines recommend a Cologuard re-screening interval of 3 years. References: [place] [employer] Guideline for Colorectal Cancer Screening: https://www.cancer.org/cancer/dkcds-mvcdup-mbkwqh/uiwuhsarc-tbhatlbfq-ppzlntn/ac s-rec ommendations.html.; Caesar KAISER, Dano HATFIELD, Hyacinth GEORGE, Colorectal Cancer Screening: Recommendations for Physicians and Patients from the U.S. Multi-Society Task Force on Colorectal Cancer Screening , Am J Gastroenterology 2017; 112:0448-6188. TEST DESCRIPTION: Composite algorithmic analysis of stool DNA-biomarkers with hemoglobin immunoassay. ?? Quantitative values of individual biomarkers are not reportable and are not associated with individual biomarker result reference ranges. Cologuard is intended for colorectal cancer screening of adults of either sex, 45 years or older, who are at average-risk for colorectal cancer (CRC). Cologuard has been approved for use by the U.S. FDA. The performance of Cologuard was established in a cross sectional study of average-risk adults aged 50-84. Cologuard performance in patients ages 45 to 49 years was estimated by sub-group analysis of near-age groups. Colonoscopies performed for a positive result may find as the most clinically significant lesion: colorectal cancer [4.0%], advanced adenoma (including sessile serrated polyps greater than or equal to 1cm diameter) [20%] or non- advanced adenoma [31%]; or no colorectal neoplasia [45%]. These estimates are derived from a prospective cross-sectional screening study of 10,000 individuals at average risk for colorectal cancer who were screened with both Cologuard and colonoscopy. (Delvis Donald al, N Engl J Med 2014;370(14):8936-0085.) Cologuard may produce a false negative or false positive result (no colorectal cancer or precancerous polyp present at colonoscopy follow up). A negative Cologuard test result does not guarantee the absence of CRC or advanced adenoma (pre-cancer). The current Cologuard screening interval is every 3 years. ([place] [employer] Society and U.S. Multi-Society Task Force). Cologuard performance data in a 10,000 patient pivotal study using colonoscopy as the reference method can be accessed at the following location: www.[employer].com/results. Additional description of the Cologuard test process, warnings and precautions can be found at www.[employer].com. Stool specimen (specimen) 04/14/2023 9:40 AM EDT 04/15/2023 2:03 PM EDT Alissa Farnsworth MD LAB MOLECULAR DIAGNOSTICS SURENDRA CAMACHO Final Result [facility] (CLIA #:[id number]) [place] [address], * (ABNORMAL) Lipid Panel, Standard (03/19/2023 12:09 PM EDT) Triglycerides 129 <150 mg/dL [facility] Comment:Desirable Triglyceri de: less than 150 mg/dLBorderline High Triglyceride 150-199 mg/dLHigh Triglyceride: 200-499 mg/dLVery High Triglyceride: greater than or equal to 5OO mg/dL Cholesterol 215(H) <200 mg/dL [facility] Comment:Desirable Cholestero l: less than 200 mg/dLBorderline High Cholesterol: 200-239 mg/dLHigh Cholesterol: greater than 239 mg/dL LDL Cholesterol Calculated 152(H) <100 mg/dL [facility] Comment:Desirable LDL: less than 100 mg/dLNear Optimal/Above Optimal LDL: 110- 129 mg/dLBorderline High LDL: 130-159 mg/dLHigh LDL: 160-189 mg/dLVery High LDL: greater than or equal to 190 mg/dL HDL Cholesterol 38(L) >40 mg/dL [facility] Comment:Desirable HDL: great er than 40 mg/dL Note: This HDL assay may give artificially low results in patients with liver disease. Blood Venous blood specimen / Unknown 03/19/2023 12:09 PM EDT 03/19/2023 1:13 PM EDT us Alissa Farnsworth MD LAB BLOOD ORDERABLES Final Res ult [facility] [address] [place] [address] [phone] from Last 3 Months or Most Recently Relevant to Health Maintenance Insurance [facility] C3 Care Teams Customer Greeter Relationship Specialty Start Date End Date Alissa Farnsworth MD [address] [place] [phone] PCP - General Family Medicine 02/01/23
--- OUTSIDE RECORDS SUMMARY | 2024-08-09 09:25 | XMS_ITS | Encounter Summary ---
Author Organization [employer] Address [address] [place] [address] Care Team Providers Care Layout Designer Name Role Phone Alissa Farnsworth MD Primary Care Provider [phone] Reason for Visit * Reason Comments AUD F/U Encounter Details Date Type Department Care Team ([facility] st Contact Info) Description 08/09/2024 9:15 AM EST Office Visit [facility] [address] [place], [place] [id number] Syed Ceron MD [address] [place] [address] Severe alcohol use disorder (CMS/HCC) (Primary Dx) Social History Tobacco Use Types Packs/Day Years [...] Description 09/06/2024 9:15 AM EDT Office Visit [facility] [address] [place] [address] Syed Ceron MD [address] [place] [address] documented as of this encounter Procedures Procedure Name Priority Date/Time Associated Diagnosis Comments POCT ALFA-14 URINE DRUG SCREEN Routine 08/09/2024 9:21 AM EST Severe alcohol use disorder (CMS/HCC) documented in this encounter Results * POCT ALFA-14 Urine Drug Screen [...] CARE TEST ENTER/EDIT OR DERABLES Final Result documented in this encounter Visit Diagnoses Diagnosis Severe alcohol use disorder (CMS/HCC)- Primary documented in this encounter Additional Health Concerns Assessment Noted Time PHQ-9 Depression Total Score: 12 025 4:01 PM EST documented as of this encounter Care Teams Layout Designer Relationship Specialty Start Date End Date Alissa Farnsworth MD [address] [place] [address] PCP - General Family Medicine 02/01/23 documented as of this encounter
--- OUTSIDE RECORDS SUMMARY | 2024-08-09 09:25 | XMS_ITS | Encounter Summary ---
Author Organization [employer] Address [address] [place] [address] Care Team Providers Care Shoe Cutter Name Role Phone Alissa Farnsworth MD Primary Care Provider [phone] Encounter Details Date Type Department Care Team (Latest Contact Info) Description 07/29/2024 Travel Social History Tobacco Use Types Packs/Day [...] 09/06/2024 9:15 AM EDT Office Visit [facility] [address] [place] [address] Syed Ceron MD [address] [place] [address] documented as of this encounter Visit Diagnoses Not on filedocumented in this encounter Additional Health Concerns Assessment Noted Time PHQ-9 Depression Total Score: 12 025 4:01 PM EST documented as of this encounter Care Teams Shoe Cutter Relationship Specialty Start Date End Date Alissa Farnsworth MD [address] [place] [address] PCP - General Family Medicine 02/01/23 documented as of this encounter
[2024-08-09 14:46] LABS: MANUAL DIFF FLAG NO
[2024-08-09 14:49] LABS: Basophils Absolute Auto 0.1 X10*3/uL (0.0-0.2); Basophils Percent Auto 0.7 % (0-2); Eosinophils Absolute Auto 0.3 X10*3/uL (0.0-0.4); Eosinophils Percent Auto 3.3 % (0-4); Hematocrit 37.9 % (37.0-47.0); Hemoglobin 12.1 g/dl (12.0-16.0); Imm Gran Abs Auto 0.06 X10*3/uL (0.00-0.03); Imm Gran Pct Auto 0.7 % (0.0-0.4); Lymphocytes Absolute Auto 3.3 X10*3/uL (1.2-4.9); Lymphocytes Percent Auto 38.4 % (20-40); Mean Corpuscular HGB Conc 31.9 g/dl (31.0-35.0); Mean Corpuscular Hemoglobin 32.4 pg (27.0-33.0); Mean Corpuscular Volume 101.6 fL (80.0-98.0); Mean Platelet Volume 10.8 fL (9.4-12.3); Monocytes Absolute Auto 0.5 X10*3/uL (0.1-1.2); Monocytes Percent Auto 5.7 % (2-11); Neutrophils Absolute Auto 4.3 x10*3/uL (2.0-8.3); Neutrophils Percent Auto 51.2 % (45-73); Platelet Count 254 X10*3/uL (160-400); Red Blood Count 3.73 X10*6/uL (4.20-5.50); Red Cell Distribution Width 12.7 % (11.0-16.0); White Blood Count 8.5 X10*3/uL (4.8-10.8)
[2024-08-09 14:59] LABS: INTERNATIONAL NORM RATIO 0.9 (0.9-1.1); Prothrombin Time 9.9 SEC (10.9-12.4)
[2024-08-09 15:20] LABS: Alanine Aminotransferase 20 U/L (0-31); Albumin Level 3.8 g/dL (3.5-5.0); Alkaline Phosphatase 112 U/L (39-117); Anion Gap 12 (12-20); Bilirubin Total 0.2 mg/dL (0.0-1.0); Blood Urea Nitrogen 10 mg/dL (9-16); Calcium 9.6 mg/dL (8.4-10.2); Carbon Dioxide 26 mmol/L (22-29); Chloride 107 mmol/L (96-108); Estimated Glomerular Filt Rate > 60; Glucose Random 115 mg/dL (60-115); Potassium 3.4 mmol/L (3.3-5.1); Sodium 142 mmol/L (135-145); Total Protein 7.6 g/dL (6.5-8.0)
[2024-08-09 15:35] LABS: Folate 14.9 ng/mL (> or = 4.0); Vitamin B12 < 148 pg/mL (200-900)
[2024-08-09 16:41] LABS: Aspartate Amino Transferase 36 U/L (5-31)
[2024-08-10 08:34] LABS: HBS Num1 0.18 mIU/mL (0-7.99); ~HepC Num1 0.15 S/CO (0.00-0.79); ~Hepatitis B Surface Antibody NONREACTIVE (Nonreactive); ~Hepatitis C Antibody Nonreactive (Nonreactive)
[2024-08-10 08:36] LABS: Hepatitis A Antibody IgG Nonreactive (Nonreactive)
== END 2024-08-09 08:55 | disposition home or self-care (01) ==
LOC: HO.CHCLDS 08:54
PROVIDERS: Visit Provider Family Medicine
DX: F11.20 Opioid dependence, uncomplicated (principal)
CPT/HCPCS: 36415; 80053; 82607; 82746; 85025; 85610; 86706; 86708; 86803

== ENCOUNTER 2024-12-23 11:48 | Outpatient (REF) | payer MEDICAID, SELFPAY ==
--- NOTE | ~2024-12-23 | XR_ITS ---
EXAMINATION: XR TIBIA AND FIBULA, LEFT CLINICAL INFORMATION: Pain and swelling. COMPARISON: None available. TECHNIQUE: AP and lateral views of the left tibia and fibula were obtained. FINDINGS: No fracture, dislocation, or suspicious bone lesion. Normal alignment. Imaged joints appear normal. There is predominantly medial subcutaneous soft tissue swelling. XR/XR tibia fibula LT 2V IMPRESSION: No acute bony abnormalities. Electronically signed by: Remberto Posadas MD 12/23/2024 01:07 PM EDT
--- NOTE | ~2024-12-23 | XR_ITS ---
EXAMINATION: XR ANKLE, LEFT CLINICAL INFORMATION: pain and swelling COMPARISON: None available. TECHNIQUE: AP, lateral, and mortise views of the left ankle. FINDINGS: No fracture or suspicious bone lesion. Bone island in the medial malleolus. Alignment is anatomic. No erosions. Joint spaces are maintained. Mortise is intact. The talar dome is normal. Subtalar joints and calcaneus appear normal. There is mild diffuse subcutaneous soft tissue edema. XR/XR ankle LT min 3V IMPRESSION: No acute bony abnormality. Electronically signed by: Remberto Posadas MD 12/23/2024 01:06 PM EDT
--- NOTE | ~2024-12-23 | XR_ITS ---
EXAMINATION: XR KNEE, LEFT CLINICAL INFORMATION: pain COMPARISON: None available. TECHNIQUE: Four views of the left knee. FINDINGS: No fracture or joint effusion. Alignment is anatomic. Joint spaces are maintained. No abnormal soft tissue calcification. XR/XR knee LT 3V IMPRESSION: Normal left knee. Electronically signed by: Remberto Posadas MD 12/23/2024 01:04 PM EDT
--- OUTSIDE RECORDS SUMMARY | 2024-12-23 12:20 | XMS_ITS | Clinical Summary ---
Author Organization [employer] Address [address] [facility] 7 [place] [address] Care Team Providers Care Icer Air Conditioning Name Role Phone Alissa Farnsworth MD Primary Care Provider [phone] Allergies No known active allergies Medications * This document contains information received from the source organization and may not represent a complete record from that organization. triamcinolone (Kenalog) 0.1 % cream Apply topically if needed in the morning and at bedtime (pain and swelling). 30 g 2 09/12/19 24 Active aspirin 81 MG EC tablet Take [...] day. 90 tablet 3 07/26/19 25 Active potassium chloride ER (Micro-K) 10 MEQ ER capsuleIndicat ions:Hypokalem ia TAKE 2 CAPSULES (20 MEQ) BY MOUTH IN THE MORNING. DO NOT CRUSH OR CHEW. 180 capsule 1 08/03/19 25 Active cyanocobalamin (Vitamin B-12) 1000 MCG tabletIndicati ons:Vitamin B12 deficiency Take 1 tablet (1,000 mcg) by mouth Once per day. 30 tablet 11 08/10/19 25 026 Active fluticasone (Flonase) 50 MCG/ACT nasal spray ADMINISTER 1-2 SPRAYS INTO EACH NOSTRIL ONCE PER DAY. SHAKE GENTLY. BEFORE FIRST USE, PRIME PUMP. AFTER USE, CLEAN TIP AND REPLACE CAP. 48 mL 3 10/19/19 25 Active naltrexone (Depade) 50 MG tabletIndicati ons:Severe alcohol use disorder (CMS/HCC) Take 1 tablet (50 mg) by mouth Once per day. 90 tablet 3 11/02/19 026 Active ibuprofen 600 MG tablet TAKE 1 TABLET (600 MG) BY MOUTH EVERY 6 (SIX) HOURS 90 tablet 11/06/19 25 Active nicotine (Nicoderm, Step 3) 7 MG/24HR patchIndicatio ns:Tobacco abuse PLACE 1 PATCH ON THE SKIN AT THE SAME TIME EACH DAY. REMOVE BEFORE GOING TO BED 28 patch 2 12/09/19 Active gabapentin (Neurontin) 600 MG tablet Take 1 tablet (600 mg) by mouth 3 times daily. 90 tablet 11 12/24/19 026 Active methocarbamol (Robaxin) 500 MG tablet Take 1 tablet (500 mg) by mouth 2 times daily. 60 tablet 12/24/19 25 025 Active pyridoxine (Vitamin B-6) 50 MG tablet Take 1 tablet (50 mg) by mouth Once per day. 90 tablet 12/24/19 25 026 Active escitalopram (Lexapro) 10 MG tablet Take 1 tablet (10 mg) by mouth Once per day. 90 tablet 1 12/24/19 25 025 Active riboflavin (Vitamin B-2) 400 MG tablet Take 1 tablet (400 mg) by mouth Once per day. 90 tablet 12/24/19 25 Active acetaminophen (Tylenol) 500 MG tablet TAKE 1 TABLET BY MOUTH EVERY 6 HOURS FOR 14 DAYS NEEDED FOR PAIN OR FEVER. TAKE WITH FOOD 11/21/19 025 Discontinued(Th erapy completed) sertraline (Zoloft) 50 MG tablet Take 1 tablet (50 mg) by mouth Once per day. 90 tablet 10/27/19 24 025 Discontinued(Th erapy completed) gabapentin (Neurontin) 300 MG capsule Take 1 capsule (300 mg) by mouth 3 times daily. 90 capsule 11 07/26/19 025 Discontinued(In effective) guaiFENesin (Mucinex) 600 MG 12 hr tablet Take 2 tablets (1,200 mg) by mouth 2 times daily. Do not crush, chew, or split. 120 tablet 11 07/26/19 25 025 Discontinued(Th erapy completed) nicotine (Nicoderm, Step 3) 7 MG/24HR patchIndicatio ns:Nicotine Dependence Place 1 patch on the skin 1 (one) time each day at the same time. Remove before going to bed 28 patch 2 07/30/19 25 025 Discontinued escitalopram (Lexapro) 5 MG tablet TAKE 1 TABLET (5 MG) BY MOUTH ONCE PER DAY. 90 tablet 1 10/19/19 25 025 Discontinued(Do se adjustment) Active Problems Problem Noted Date Diagnosed Date [...] CT for stroke rule out 08/2023 at [facility] Neurology recommended outpatient MRI with and w/o gadolinium Healthcare maintenance 03/20/2023 Screening for colon cancer 03/20/2023 Acute pain of both shoulders 03/20/2023 Encounter for screening mamm ogram for malignant neoplasm of breast 03/20/2023 Moderate episode of recurrent major depressive d isorder 02/06/2023 Assessment & Plan (03/12/2023 9:54 AM [...] services placed on 02/12 with Migel Brown [phone]. Mathew was also referred to the Senior Category Manager program with [facility]. Patient agreed with the plan. At this time Mathew Herrmann meets criteria for Visit Diagnoses: Problem List Items Addressed This Visit Other Alcohol use disorder, moderate, dependence (CMS/HCC) MDD (major depressive disorder) MARTHA (generalized anxiety disorder) Patient ready to address current needs Yes Strengths include readiness and willingness to change. PLAN: 1. Follow up with [facility] [place]: Not recommended for follow-up 2. Patient goal is to gradually stop alcohol consumption and start individual therapy. 3. Behavioral Recommendations a. OP individual therapy b. Referral for Senior Category Manager with [facility] c. Incorporate self-care and coping [...] her life PLAN: 1. Follow up with [facility] [place]: Not recommended for follow-up 2. Patient goal [...] services placed on 02/12 with Migel Brown [phone]. Mathew was also referred to the Senior Category Manager program with [facility]. Patient agreed with the plan. At this time Mathew Herrmann meets criteria for Visit Diagnoses: Problem List Items Addressed This Visit Other Alcohol use disorder, moderate, dependence (CMS/HCC) MDD (major depressive disorder) MARTHA (generalized anxiety disorder) Patient ready to address current needs Yes Strengths include readiness and willingness to change. PLAN: 1. Follow up with [facility] [place]: Not recommended for follow-up 2. Patient goal is to gradually stop alcohol consumption and start individual therapy. 3. Behavioral Recommendations a. OP individual therapy b. Referral for Senior Category Manager with [facility] c. Incorporate self-care and coping skills into [...] with inhouse temporarily Consider AUD services at [facility] Assessment & Plan (02/01/2023 11:01 AM EDT): [...] Assessment & Plan (02/01/2023 11:02 AM EDT): SDOH referral Resolved Problems Problem Noted Date Diagnosed Date Resolved Date Pain of both shoulder joints 03/20/2023 12/22/2024 Assessment & Plan (03/20/2023 10:50 AM EDT): Frozen shoulder versus OA versus inflammatory disease Encounters * This document contains information received from the source organization and may not represent a complete record from that organization. Date Type Department Care Team Description 12/23/2024 11:30 AM EDT Office Visit [facility] [address] [place] [phone] Alissa Farnsworth MD Screening mammogram for breast cancer (Primary Dx); Localized swelling of left lower extremity; Vitamin B12 deficiency; Gait instability 12/23/2024 Travel 12/22/[address] [address] Alissa Farnsworth MD Chart prep 12/22/2024 Travel 12/20/[address] [address] Alissa Farnsworth MD telephone call; Call Back Request 12/16/2024 Telephone [facility] [address] [place] [address] Alissa Farnsworth MD chart prep 12/10/2024 Patient Outreach [facility] [address] [place] [address] Alissa Farnsworth MD Pre-visit Planning ([facility] unable to reach M) 12/07/2024 Refill [facility] [address] [place] [address] Syed Ceron MD Tobacco abuse 11/04/2024 Refill [facility] [address] [place] [address] Alissa Farnsworth MD 11/01/2024 9:30 AM EDT Office Visit [facility] [address] [place] [address] Syed Ceron MD Severe alcohol use disorder (CMS/HCC) (Primary Dx); Encounter for immunization 11/01/2024 Travel 10/31/2024 Travel 10/15/2024 Refill [facility] [address] [place] [address] Alissa Farnsworth MD from Last 3 Months Immunizations Immunization Administration Dates Next Due Hep A, Adult 09/06/2024 Hep B, adult 11/01/2024,09/06/2024 02/21/2025 Influenza Injectable Quadriv alant Preservative Free IIV4 [...] Answer Date Recorded Patient Health Questionnaire-9 Score 16 08/17/2024 Patient Health Questionnaire-9 Score 16 08/17/2024 Last PHQ-9: Questionnaire Data Not on file 0 08/17/2024 Housing Stability Answer Date Recorded What is [...] Date Recorded Patient Health Questionnaire-2 Score 6 08/17/2024 Internet Access Answer Date Recorded Internet Access Q1 Yes 07/26/2024 Internet Access Q2 Not on file 07/26/2024 Comments No Sex and Gender Information Value Date Recorded Sex Assigned at Female 01/07/2023 11:56 AM EDT Legal Sex Female 11:55 AM EDT Gender Identity Female 01/07/2023 11:56 AM EDT Sexual Orientation Choose not to disclose 2022 12:08 PM EDT Sexual Orientation Straight 02/01/2023 12 :08 PM EDT Last Filed Vital Signs Vital Sign Reading Time Taken Comments Blood Pressure 126/78 12/23/2024 10:58 AM EDT Pulse 93 12/23/2024 10:58 AM EDT Temperature 36.6 C (97.9 F) 12/23/2024 10:58 AM EDT Respiratory Rate 20 12/23/2024 10:58 AM EDT Oxygen Saturation 100% 12/23/2024 10:58 AM EDT Inhaled Oxygen Concentration - - Weight 63 kg (139 lb) 12/23/2024 10:58 AM EDT Height 160 cm (5' 3 ) 12/23/2024 10:58 AM EDT Body Mass Index 24.62 12/23/2024 10:58 AM EDT Plan of Treatment Upcoming Encounters Date Type Department Care Team (Late st Contact Info) Description 02/23/2025 9:15 AM EDT Office Visit [facility] [address] [place] [address] Gely Gonzalez MD [address] [place] [address] 03/07/2025 9:30 AM EDT Office Visit [facility] [address] [place] [address] Syed Ceron MD [address] [place] [address] Health Maintenance Due Date Last Done Comments CT Colonography 1967 Colonoscopy 1967 FIT 1967 FOBT 1967 HIV Screening 1967 Sigmoidoscopy 1967 DTaP/Tdap/Td Vaccines (1 - Tdap) 11/13/1986 Pap Smear 11/13/1988 Cervical Cancer Screening 11/13/1997 HPV/Cotest 11/13/1997 Mammogram 2007 Zoster Vaccines (1 of 2) 11/13/2017 Influenza Vaccine (#1) 2025 , 03/19/2023, 05/25/2021, Additional history exists Depression Monitoring 02/17/2025 08/17/2024, 025 Hepatitis B Vaccines (3 of 3 - 19+ 3-dose series) 03/09/2025 11/01/2024, 09/06/2024 Disability Screening 07/26/2025 07/26/2024 SDOH Screening 07/26/2025 07/26/2024 Alcohol/Substance Use Screening 12/23/2025 12/23/2024 Tobacco Screening 12/23/2025 12/23/2024 Colorectal Cancer Screening 04/14/2026 FIT DNA/Cologuard 04/14/2026 04/14/2023 Lipid Panel 03/19/2028 03/19/2023 RSV Patients and Patients Aged 60 years or older (1 - 1-dose 75+ series) 11/13/2042 COVID-19 Vaccine Completed 07/03/2024, 03/2021, 11/04/2020, Additional history exists Pneumococcal Vaccine: 50+ Years Completed 07/26/2024, 04/24/2017 Hepatitis C Screening Completed 08/09/2024 Hepatitis A Vaccines Aged Out 09/06/2024 No long er eligible based on patient's age to complete this topic HIB Vaccines Aged Out No longer eligi ble based on patient's age to complete this topic HPV Vaccines Aged Out No longer eligi ble based on patient's age to complete this topic IPV Vaccines Aged Out No longer eligi ble based on patient's age to complete this topic Meningococcal B Vaccine Aged Out No l onger eligible based on patient's age to complete [...] Procedure Name Priority Date/Time Associated Diagnosis Comments HEPATITIS C AB W/REFL TO HCV RNA, QN, PCR Routine 08/09/2024 8:56 AM EST Severe alcohol use disorder (CMS/HCC) LAB COLOGUARD COLON CANCER SCREEN Routine 04/14/2023 9:40 AM EDT Screening for colon cancer LIPID PANEL, STANDARD Routine 03/19/2023 12:09 PM EDT Primary hypertension from Last 3 Months or Most Recently Relevant to Health Maintenance Results * Hepatitis C Antibody with Reflex to HCV, RNA, Quantitative, Real-Time PCR (08/09/2024 8:56 AM EST) Hepatitis C Antibody Nonreactive Nonreactive [facility] Comment:Antibodies to HCV no t detected; does not exclude early acuteHCV infection. Blood Venous blood specimen / Unknown 08/09/2024 8:56 AM EST 08/09/2024 2:41 PM EST us Syed Ceron MD LAB BLOOD ORDERABLES Final Resul t [facility] [address] [place] [address] [phone] * Cologuard?? colon cancer screening (04/14/2023 9:40 AM EDT) Cologuard Result Negative Negative 04/18/20 7:07 PM EDT [facility] (CLIA #:[id number]) Comment: NEGATIVE TEST RESULT. A negative Cologuard result indicates a low likelihood that a colorectal cancer (CRC) or advanced adenoma (adenomatous polyps with more advanced pre-malignant features) is present. The chance that a person with a negative Cologuard test has a colorectal cancer is less than 1 in 1500 (negative predictive value >99.9%) or has an advanced adenoma is less than 5.3% (negative predictive value 94.7%). These data are based on a prospective cross-sectional study of 10,000 individuals at average risk for colorectal cancer who were screened with both Cologuard and colonoscopy. (Delvis Donald al, N Engl J Med 2014;370(14):3182-5827) The normal value (reference range) for this assay is negative. COLOGUARD RE-SCREENING RECOMMENDATION: Periodic colorectal cancer screening is an important part of preventive healthcare for asymptomatic individuals at average risk for colorectal cancer. Following a negative Cologuard result, the [place] [employer] and U.S. Multi-Society Task Force screening guidelines recommend a Cologuard re-screening interval of 3 years. References: [place] [employer] Guideline for Colorectal Cancer Screening: https://www.cancer.org/cancer/anzpq-yamjwt-dqptfc/jkuquzjmc-fksdhkwei-wkludul/ac s-rec ommendations.html.; Caesar DK, Dano CR, Hyacinth DelgadilloK, Colorectal Cancer Screening: Recommendations for Physicians and Patients from the U.S. Multi-Society Task Force on Colorectal Cancer Screening , Am J Gastroenterology 2017; 112:1196-1680. TEST DESCRIPTION: Composite algorithmic analysis of stool DNA-biomarkers with hemoglobin immunoassay. Quantitative values of individual biomarkers are not [...] (Delvis Donald al, N Engl J Med 2014;370(14):4823-3529.) Cologuard may produce a false negative or false positive result (no colorectal cancer or precancerous polyp present at colonoscopy follow up). A negative Cologuard test result does not guarantee the absence of CRC or advanced adenoma (pre-cancer). The current Cologuard screening interval is every 3 years. ([place] [employer] and U.S. Multi-Society Task Force). Cologuard performance data in a 10,000 patient pivotal study using colonoscopy as the reference method can be accessed at the following location: www.iCopyright.[employer]/results. Additional description of the Cologuard test process, warnings and precautions can be found at www.CinemaWell.comrd.com. Stool specimen (specimen) 04/14/2023 9:40 AM EDT 04/15/2023 2:03 PM EDT us Alissa Farnsworth MD LAB MOLECULAR DIAGNOSTICS SURENDRA CAMACHO Final Result [facility] (CLIA #:[id number]) [place] [address], [place] [phone] * (ABNORMAL) Lipid Panel, Standard (03/19/2023 12:09 PM EDT) Triglycerides 129 <150 mg/dL [facility] Comment:Desirable Triglyceri de: less than 150 mg/dLBorderline High Triglyceride 150-199 mg/dLHigh Triglyceride: 200-499 mg/dLVery High Triglyceride: greater than or equal to 5OO mg/dL Cholesterol 215(H) <200 mg/dL [facility] Comment:Desirable Cholestero l: less than 200 mg/dLBorderline High Cholesterol: 200-239 mg/dLHigh Cholesterol: greater than 239 mg/dL LDL Cholesterol Calculated 152(H) <100 mg/dL [facility] Comment:Desirable LDL: less than 100 mg/dLNear Optimal/Above Optimal LDL: 110- 129 mg/dLBorderline High LDL: 130-159 mg/dLHigh LDL: 160-189 mg/dLVery High LDL: greater than or equal to 190 mg/dL HDL Cholesterol 38(L) >40 mg/dL [facility] Comment:Desirable HDL: great er than 40 mg/dL Note: This HDL assay may give artificially low results in patients with liver disease. Blood Venous blood specimen / Unknown 03/19/2023 12:09 PM EDT 03/19/2023 1:13 PM EDT us Alissa Farnsworth MD LAB BLOOD ORDERABLES Final Res ult [facility] [address] [place] [address] [phone] from Last 3 Months or Most Recently Relevant to Health Maintenance [facility] Care Teams Icer Air Conditioning Relationship Specialty Start Date End Date Alissa Farnsworth MD [address] [place] [address] PCP - General Family Medicine 02/01/23
[2024-12-23 15:18] LABS: Folate > 20.0 ng/mL (> or = 4.0); Vitamin B12 927 pg/mL (200-900)
== END 2024-12-23 11:49 | disposition home or self-care (01) ==
LOC: HO.HHCL 11:48
PROVIDERS: PCP General Practice; Visit Provider General Practice
DX: R22.42 Localized swelling, mass and lump, left lower limb (principal); E53.8 Deficiency of other specified B group vitamins; R26.81 Unsteadiness on feet
CPT/HCPCS: 36415; 73562; 73590; 73610; 82607; 82746; 84443

== ENCOUNTER → 2024-12-23 12:28 | Outpatient (BNV) | payer MEDICAID, SELFPAY | PROVIDERS: PCP General Practice; Visit Provider Radiology Diagnostic Radiology | DX: M25.562 Pain in left knee (principal); M25.572 Pain in left ankle and joints of left foot; R22.42 Localized swelling, mass and lump, left lower limb; M79.662 Pain in left lower leg | CPT/HCPCS: 73562; 73590; 73610 ==

== ENCOUNTER 2025-02-23 10:46 | Outpatient (REF) | payer MEDICAID, SELFPAY ==
--- OUTSIDE RECORDS SUMMARY | 2025-02-23 09:15 | XMS_ITS | Encounter Summary ---
Author Organization [employer] Address [address] [place] [address] [facility] [place] [address] Care Team Providers Care Accounts Specialist Name Role Phone Gely Gonzalez MD Primary Care Provider [phone] Reason for Referral * Consultation (Routine) - Pending Review Specialty Diagnoses / Procedures Referred By Saul hagen Referred To Contact Cardiology Diagnoses Palpitations Gely Gonzalez MD [address] [place] [address] Phone: tel: fax: Referral ID Status Reason Start Date Expiration Date Visits Requested Visits Authorized [id number] Pending Review Specialty Services Required 02/23/2025 02/23/2026 1 1 Scheduling Instructions 59 yo F with persistent intermittent non known pattern, send to [facility], requested cards referral, send to Friday * Consultation (Routine) - Pending Review Specialty Diagnoses / Procedures Referred By Saul hagen Referred To Contact Urology Diagnoses Mixed stress and urge urinary incontinence Gely Gonzalez MD [address] [place] [address] Phone: tel: fax: Referral ID Status Reason Start Date Expiration Date Visits Requested Visits Authorized [id number] Pending Review Specialty Services Required 02/23/2025 02/23/2026 1 1 Scheduling Instructions 59 yo F with mixed incontinence symptoms, send to [facility],needs appts for Mondays * Cardiology (Routine) - Authorized Specialty Diagnoses / Procedures Referred By Contac t Referred To Contact Cardiology Diagnoses Palpitations Procedures Holter monitor - 24 hour Gely Gonzalez MD [address] [place] [address] Phone: tel: fax: [address] Phone: tel: fax: Referral ID Status Reason Start Date Expiration Date V isits Requested Visits Authorized [id number] Authorized 02/23/2025 02/23/2026 1 1 Encounter Details Date Type Department Care Team (Late st Contact Info) Description 02/23/2025 9:15 AM EDT Office Visit [facility] [address] [place] [address] Gely Gonzalez MD [address] [place] [address] Vertebral artery stenosis, asymptomatic, right (Primary Dx); Encounter for immunization; Breast cancer screening by mammogram; Encounter for health-related screening; Palpitations; Urinary frequency; Mixed stress and urge urinary incontinence; Hypokalemia Social History Tobacco Use Types Packs/Day Years Used Date Smoking Tobacco: Every Day Cigarettes Smokeless Tobacco: Never Alcohol Use Standard Drinks/Week Comments Yes 2 (1 standard drink = 0.6 oz pur e alcohol) Depression Answer Date Recorded Patient Health Questionnaire-9 Score 17 02/23/2025 Patient Health Questionnaire-9 Score 17 02/23/2025 Last PHQ-9: Questionnaire Data Not on file 0 02/23/2025 Housing Stability Answer Date Recorded What is [...] Answer Date Recorded Patient Health Questionnaire-2 Score 5 02/23/2025 Internet Access Answer Date Recorded Internet Access [...] Sign Reading Time Taken Comments Blood Pressure 132/84 02/23/2025 9:17 AM EDT Pulse 76 02/23/2025 9:17 AM EDT Temperature 36.4 C (97.6 F) 02/23/2025 9:17 AM EDT Respiratory Rate 20 02/23/2025 9:17 AM EDT Oxygen Saturation 98% 02/23/2025 9:17 AM EDT Inhaled Oxygen Concentration - - Weight 64.4 kg (142 lb) 02/23/2025 9:17 AM EDT Height 160 cm (5' 3 ) 02/23/2025 9:17 AM EDT Body Mass Index 25.15 02/23/2025 9:17 AM EDT documented in this encounter Functional Status * Over the past 2 weeks, how often have you been bothered by any of the following problems? Question Answer Date of Assessment Author Patient Health Questionnaire -2 Score 5 02/23/2025 11:06 AM EDT Calixto Plummer [place] * Little interest or pleasure in doing things Answer Date of Assessment Author Nearly every day 02/23/2025 11:06 AM EDT Calixto Plummer [place] * Feeling down, depressed, or hopeless Answer Date of Assessment Author More than half the days 02/23/2025 11:06 AM Calixto Bassett [place] * Trouble falling or staying asleep, or sleeping too much Answer Date of Assessment Author More than half the days 02/23/2025 11:06 AM Calixto Bassett [place] * Feeling tired or having little energy Answer Date of Assessment Author Nearly every day 02/23/2025 11:06 AM Calixto Bassett [place] * Poor appetite or overeating Answer Date of Assessment Author More than half the days 02/23/2025 11:06 AM EDCalixto Goff [place] * Feeling bad about yourself - or that you are a failure or have let yourself or your family down Answer Date of Assessment Author More than half the days 02/23/2025 11:06 AM Calixto Bassett [place] * Trouble concentrating on things, such as reading the newspaper or watching television Answer Date of Assessment Author Nearly every day 02/23/2025 11:06 AM Calixto Bassett [place] * Moving or speaking so slowly that other people could have noticed? Or the opposite - being so fidgety or restless that you have been moving around a lot more than usual. Answer Date of Assessment Author Not at all 02/23/2025 11:06 AM Calixto Bassett [place] * Thoughts that you would be better off or hurting yourself in some way Answer Date of Assessment Author Not at all 02/23/2025 11:06 AM Calixto Bassett [place] * Patient Health Questionnaire-9 Score Answer Date of Assessment Author 17 02/23/2025 11:06 AM Calixto Bassett [place] * How difficult have these problems made it for you to do your work, take care of things at home, or get along with other people? Answer Date of Assessment Author Very difficult 02/23/2025 11:06 AM Calixto Bassett [place] documented as of this encounter Plan of Treatment Upcoming Encounters Date Type Department Care Team (Late st Contact Info) Description 02/28/2025 9:20 AM EDT Procedure [facility] [address] [place] [address] Gely Gonzalez MD [address] [place] [address] 03/07/2025 9:30 AM EDT Office Visit [facility] [address] [place], [place] [id number] Syed Ceron MD [address] [place] [address] Scheduled Orders Name Type Priority Associated Diagnoses Orde r Schedule HIV-1/2 Antigen and Antibodies, Fourth Generation, with Reflexes Lab Routine Encounter for health-related screening Expected: 02/23/2025 (Approximate), Expires: 02/23/2026 Holter monitor - 24 hour Cardiac Services Routine Palpitations Expected: 02/23/2025 (Approximate), Expires: 02/23/2027 CBC auto differential Lab Routine Palpitations Expected: 02/23/2025 (Approximate), Expires: 02/23/2026 TSH W/Reflex to FT4 Lab Routine Palpitations Expected: 02/23/2025 (Approximate), Expires: 02/23/2026 Urinalysis, Complete, with Reflex to Culture Lab Routine Urinary frequency Expected: 02/23/2025 (Approximate), Expires: 02/23/2026 Basic Metabolic Panel Lab Routine Hypokalemia Expected: 02/23/2025 (Approximate), Expires: 02/23/2026 Magnesium Lab Routine Hypokalemia Expected: 02/23/2025, Expires: 02/23/2026 Scheduled Referrals Name Type Priority Associated Diagnoses Orde r Schedule Referral to Urology Outpatient Referral Routine Mixed stress and urge urinary incontinence Expected: 02/23/2025 (Approximate), Expires: 02/23/2026 Referral to Cardiology Outpatient Referral Routine Palpitations Expected: 02/23/2025 (Approximate), Expires: 02/23/2026 documented as of this encounter Procedures Procedure Name Priority Date/Time Associated Diagnosis Comments ECG 12-LEAD Routine 02/23/2025 10:28 AM EDT Palpitations Hypokalemia documented in this encounter Results * ECG 12 lead (02/23/2025 10:28 AM EDT) Narrative Gely Gonzalez MD - 02/23/2025 10:28 AM EDT Regular rhythm RR 80 bpm High T wave, but not hyperacute Normal axis us Gely Gonzalez MD ECG ORDERABLES Final Result documented in this encounter Visit Diagnoses Diagnosis Vertebral artery stenosis, asymptomatic, right- Primary Encounter for immunization Breast cancer screening by mammogram Encounter for health-related screening Palpitations Urinary frequency Mixed stress and urge urinary incontinence Mixed incontinence urge and stress (male)(female) Hypokalemia Hypopotassemia documented in this encounter Additional Health Concerns Assessment Noted Time PHQ-9 Depression Total Score: 17 025 11:06 AM EDT documented as of this encounter Care Teams Accounts Specialist Relationship Specialty Start Date End Date Gely Gonzalez MD [address] [place] [id number] PCP - General Family Medicine 02/23/25 Syed Ceron MD Consulting Physician Alcohol and Drug Specialist 02/15/24 Benji De La Garza MD Consulting Physician Neurology 10/28/23 documented as of this encounter
--- OUTSIDE RECORDS SUMMARY | 2025-02-23 13:26 | XMS_ITS | Encounter Summary ---
Author Organization [employer] Address [address] [place] [address] 7 [place] [address] Care Team Providers Care Miter Sawyer Name Role Phone Alsisa Farnsworth MD Primary Care Provider [phone] Gely Gonzalez MD Primary Care Provider [phone] Encounter Details Date Type Department Care Team ([facility] Contact Info) Description 03/19/2023 Orders Only [facility] [address] [place] [address] Alissa Farnsworth MD [address] [place] [address] Social History Tobacco Use Types Packs/Day Years [...] Department Care Team (Late Contact Info) Description 02/28/2025 9:20 AM EDT Procedure Visit [facility] [address] [place] [address] Geyl Gonzalez MD [address] [place] [address] 03/07/2025 9:30 AM EDT Office Visit [facility] [address] [place] [address] Syed Ceron MD [address] [place] [address] documented as of this encounter Visit Diagnoses Not on filedocumented in this encounter Additional Health Concerns Assessment Noted Time PHQ-9 Depression Total Score: 19 023 10:36 PM EDT documented as of this encounter Care Teams Miter Sawyer Relationship Specialty Start Date End Date Alissa Farnsworth MD [address] [place] [address] PCP - General Family Medicine 02/01/23 02/22/25 Gely Gonzalez MD [address] [place] [address] PCP - General Family Medicine 02/23/25 Syed Ceron MD Consulting Physician Alcohol and Drug Specialist 02/15/24 Benji De La Garza MD Consulting Physician Neurology 10/28/23 documented as of this encounter
--- OUTSIDE RECORDS SUMMARY | 2025-02-23 13:26 | XMS_ITS | Encounter Summary ---
Author Organization [employer] Address [address] [place] [address] 7 [place] [address] Care Team Providers Care Garage Door Opener Installer Name Role Phone Alissa Farnsworth MD Primary Care Provider [phone] Gely Gonzalez MD Primary Care Provider [phone] Reason for Visit * Reason Onset Date Comments Call Back Request 11/28/2023 Encounter Details Date Type Department Care Team ([facility] st Contact Info) Description 11/28/2023 Telephone [facility] [address] [place] [address] Alissa Farnsworth MD [address] [place] [address] Call Back Request Social History Tobacco Use [...] Miscellaneous Notes * Telephone Encounter - Ninoska Kam - 11/28/2023 11:09 AM EDT Tc from pt requesting to speak with a nurse in regards to DTA form. States form was completed but when faxed, form was unreadable. Pt states called medical records to picker and sorter load and unload a copy but was told to contact PCP as they could not find form. Pt needs to turn in form as soon as possible. Please contact pt at [phone] documented in this encounter Plan of Treatment Upcoming Encounters Date Type Department Care Team ([facility] st Contact Info) Description 02/28/2025 9:20 AM EDT Procedure Visit [facility] MED & PEDS [address] [place] [address] Gely Gonzalez MD [address] [place] [address] 03/07/2025 9:30 AM EDT Office Visit [facility] MED & PEDS [address] [place] [address] Syed Ceron MD [address] [place] [address] documented as of this encounter Visit Diagnoses Not on filedocumented in this encounter Additional Health Concerns Assessment Noted Time PHQ-9 Depression Total Score: 19 023 10:36 PM EDT documented as of this encounter Care Teams Garage Door Opener Installer Relationship Specialty Start Date End Date Alissa Farnsworth MD [address] [place] [address] PCP - General Family Medicine 02/01/23 02/22/25 Gely Gonzalez MD [address] [place] [address] PCP - General Family Medicine 02/23/25 Syed Ceron MD Consulting Physician Alcohol and Drug Specialist 02/15/24 Benji De La Garza MD Consulting Physician Neurology 10/28/23 documented as of this encounter
--- OUTSIDE RECORDS SUMMARY | 2025-02-23 13:26 | XMS_ITS | Clinical Summary ---
Author Organization [employer] Address [address] [place] [address] 7[address] [place] [address] Care Team Providers Care Recreation Therapy Aides Teacher Name Role Phone Gely Gonzalez MD Primary Care Provider [phone] Allergies No known active allergies Medications * This document contains information received from the source organization and may not represent a complete record from that organization. aspirin 81 MG EC tablet Take 1 tablet (81 mg) by mouth Once per day. 90 tablet 3 07/26/19 25 Active folic acid (Folvite) 1 MG tablet Take 1 tablet (1 mg) by mouth Once per day. 90 tablet 3 07/26/19 25 026 Active amLODIPine (Norvasc) 5 MG tablet Take 1 tablet (5 mg) by mouth Once per day. 90 tablet 07/26/19 25 Active cyanocobalamin (Vitamin B-12) 1000 MCG tabletIndication s:Vitamin B12 deficiency Take 1 tablet (1,000 mcg) by mouth Once per day. 30 tablet 11 08/10/19 25 026 Active fluticasone (Flonase) 50 MCG/ACT nasal spray ADMINISTER 1-2 SPRAYS INTO EACH NOSTRIL ONCE PER DAY. SHAKE GENTLY. BEFORE FIRST USE, PRIME PUMP. AFTER USE, CLEAN TIP AND REPLACE CAP. 48 mL 10/19/19 25 026 Active naltrexone (Depade) 50 MG tabletIndication s:Severe alcohol use disorder (CMS/HCC) Take 1 tablet (50 mg) by mouth Once per day. 90 tablet 3 11/02/19 25 026 Active ibuprofen 600 MG tablet TAKE 1 TABLET (600 MG) BY MOUTH EVERY 6 (SIX) HOURS 90 tablet 3 11/06/19 25 Active nicotine (Nicoderm, Step 3) 7 MG/24HR patchIndications :Tobacco abuse PLACE 1 PATCH ON THE SKIN AT THE SAME TIME EACH DAY. REMOVE BEFORE GOING TO BED 28 patch 2 12/09/19 25 Active gabapentin (Neurontin) 600 MG tabletIndication s:Alcohol use disorder, moderate, dependence (CMS/HCC) Take 1 tablet (600 mg) by mouth 3 times daily. 90 tablet 11 12/24/19 25 026 Active pyridoxine (Vitamin B-6) 50 MG tabletIndication s:Alcohol use disorder, moderate, dependence (CMS/HCC) Take 1 tablet (50 mg) by mouth Once per day. 90 tablet 3 12/24/19 25 026 Active escitalopram (Lexapro) 10 MG tabletIndication s:MARTHA (generalized anxiety disorder),Modera te episode of recurrent major depressive disorder (CMS/HCC) Take 1 tablet (10 mg) by mouth Once per day. 90 tablet 1 12/24/19 25 025 Active riboflavin (Vitamin B-2) 400 MG tabletIndication s:Alcohol use disorder, moderate, dependence (CMS/HCC) Take 1 tablet (400 mg) by mouth Once per day. 90 tablet 3 12/24/19 25 Active methocarbamol (Robaxin) 500 MG tabletIndication s:Gait instability,Mult ifactorial gait disorder TAKE 1 TABLET BY MOUTH TWICE A DAY 60 tablet 01/20/20 25 Active potassium chloride ER (Micro-K) 10 MEQ ER capsuleIndicatio ns:Hypokalemia TAKE 2 CAPSULES (20 MEQ) BY MOUTH IN THE MORNING. DO NOT CRUSH OR CHEW. 180 capsule 1 02/03/20 25 Active zoster vaccine-recombin ant adjuvanted (Shingrix) 50 MCG/0.5ML vaccineIndicatio ns:Encounter for immunization Inject 0.5 mL (50 mcg) into the muscle 1 (one) time for 1 dose. 0.5 mL 02/24/20 25 025 Active triamcinolone (Kenalog) 0.1 % cream Apply topically if needed in the morning and at bedtime (pain and swelling). 30 g 2 09/12/19 24 025 Discontinued potassium chloride ER (Micro-K) 10 MEQ ER capsuleIndicatio ns:Hypokalemia TAKE 2 CAPSULES (20 MEQ) BY MOUTH IN THE MORNING. DO NOT CRUSH OR CHEW. 180 capsule 1 08/03/19 25 025 Discontinued Active Problems Problem Noted Date Diagnosed Date Palpitations 02/23/2025 Urinary frequency 02/23/2025 Mixed stress and urge urinary incontinence 02/23 Vitamin B12 deficiency 12/27/2024 Localized swelling of left lower extremity 12/27 Multiple falls 12/27/2024 Multifactorial gait disorder 09/15/2023 Assessment & Plan (12/27/2024 8:28 AM EDT): Order walker with seat for falls prevention Assessment & Plan (10/27/2023 12:07 PM EDT): [...] Vertebral artery stenosis, asymptomatic, right 0 09/15/2023 Overview (02/23/2025): August 2023, started on ASA by neurology Assessment & Plan (09/15/2023 6:13 AM EDT): Found on CT for stroke rule out 08/2023 at [facility] Neurology recommended outpatient MRI with and w/o gadolinium Healthcare maintenance 03/20/2023 Screening for colon cancer 03/20/2023 Acute pain of both shoulders 03/20/2023 Screening mammogram for breast cancer 03/20/2023 Moderate episode of recurrent major depressive [...] services placed on 02/12 with Migel Brown [phone]. Mathew was also referred to the Cloth Desizing Range Tender program with [facility]. Patient agreed with the plan. At this time Mathew Herrmann meets criteria for Visit Diagnoses: Problem List Items Addressed This Visit Other Alcohol use disorder, moderate, dependence (CMS/HCC) MDD (major depressive disorder) MARTHA (generalized anxiety disorder) Patient ready to address current needs Yes Strengths include readiness and willingness to change. PLAN: 1. Follow up with [facility]: Not recommended for follow-up 2. Patient goal is to gradually stop alcohol consumption and start individual therapy. 3. Behavioral Recommendations a. OP individual therapy b. Referral for Cloth Desizing Range Tender with [facility] c. Incorporate self-care and coping [...] her life PLAN: 1. Follow up with [facility]: Not recommended for follow-up 2. Patient goal is to gradually stop drinking 3. Behavioral Recommendations a. Referral to OP individual therapy b. Join alcoholics groups c. Practice mindfulness techniques MRATHA (generalized anxiety disorder) 02/06/2023 Assessment & Plan [...] services placed on 02/12 with Migel Brown [phone]. Mathew was also referred to the Cloth Desizing Range Tender program with [facility]. Patient agreed with the plan. At this time Mathew Herrmann meets criteria for Visit Diagnoses: Problem List Items Addressed This Visit Other Alcohol use disorder, moderate, dependence (CMS/HCC) MDD (major depressive disorder) MARTHA (generalized anxiety disorder) Patient ready to address current needs Yes Strengths include readiness and willingness to change. PLAN: 1. Follow up with [facility]: Not recommended for follow-up 2. Patient goal is to gradually stop alcohol consumption and start individual therapy. 3. Behavioral Recommendations a. OP individual therapy b. Referral for Cloth Desizing Range Tender with [facility] c. Incorporate self-care and coping [...] with inhouse temporarily Consider AUD services at [facility] Assessment & Plan (02/01/2023 11:01 AM [...] organization. Date Type Department Care Team Description 02/23/2025 9:15 AM EDT Office Visit [facility] [address] [place] [address] Gely Gonzalez MD Vertebral artery stenosis, asymptomatic, right (Primary Dx); Encounter for immunization; Breast cancer screening by mammogram; Encounter for health-related screening; Palpitations; Urinary frequency; Mixed stress and urge urinary incontinence; Hypokalemia 02/23/2025 Travel 02/22/2025 Telephone [facility] [address] [place] [address] Alissa Farnsworth MD Chart Prep 02/21/2025 Travel 02/18/[address] [address] Alissa Farnsworth MD 02/16/2025 Patient Outreach [address] [address] Alissa Farnsworth MD Pre-visit Planning (Pre visit planning LVM ) 02/01/[address] [address] Alissa Farnsworth MD Hypokalemia 01/20/[address] [address] Alissa Farnsworth MD 01/19/[address] [address] Alissa Farnsworth MD Gait instability; Multifactorial gait disorder 12/28/2024 Telephone [facility] [address] [place] [address] Alissa Farnsworth MD Durable Medical Equipment 12/27/[address] [address] Alissa Farnsworth MD Results 12/23/2024 11:30 AM EDT Office Visit [address] [address] Alissa Farnsworth MD Gait instability (Primary Dx); Screening mammogram for breast cancer; Localized swelling of left lower extremity; Vitamin B12 deficiency; Alcohol use disorder, moderate, dependence (CMS/HCC); Primary hypertension; Multiple falls; Multifactorial gait disorder; MARTHA (generalized anxiety disorder); Moderate episode of recurrent major depressive disorder (CMS/HCC) 12/23/2024 Travel 12/22/[address] [address] Alissa Farnsworth MD Chart prep 12/22/2024 Travel 12/20/[address] [address] Alissa Farnsworth MD telephone call; Call Back Request 12/16/[address] [address] Alissa Farnsworth MD chart prep 12/10/2024 Patient Outreach [facility] [address] [place], [place] [phone] Alissa Farnsworth MD Pre-visit Planning ([facility] unable to reach LVM) 12/07/2024 Refill [facility] [address] [place] [address] Syed Ceron MD Tobacco abuse from Last 3 Months Immunizations Immunization Administration Dates Next Due Hep A, Adult 09/06/2024 Hep B, adult 11/01/2024,09/06/2024 02/21/2025 Influenza Injectable Quadriv alant Preservative Free IIV4 MDCK 05/25/2021 Influenza injectable quadrivalent preservative f ree 03/19/2023,03/11/2020 Influenza, IIV3, injectable 04/24/2017 Influenza, Injectable, MDCK, preservative free 1 07/08/2023 Pneumococcal Conjugate PCV 20 07/26/2024 Pneumococcal Polysaccharide PPSV23 04/24/2017 Tdap 02/23/2025 Social History Tobacco Use Types Packs/Day Years [...] Mass Index 25.15 02/23/2025 9:17 AM EDT Plan of Treatment Upcoming Encounters Date Type Department Care Team (Late st Contact Info) Description 02/28/2025 9:20 AM EDT Procedure Visit [facility] [address] [place] [address] Gely Gonzalez MD [address] [place] [address] 03/07/2025 9:30 AM EDT Office Visit [facility] [address] [place] [address] Syed Ceron MD [address] [place] [phone] Health Maintenance Due Date Last Done Comments CT Colonography 1967 Colonoscopy 1967 FIT 1967 HIV Screening 1965 Sigmoidoscopy 1967 Pap Smear 11/13/1988 Cervical Cancer Screening 11/13/1997 HPV/Cotest 11/13/1997 Mammogram 2007 Zoster Vaccines (1 of 2) 11/13/2017 FOBT 04/14/2024 04/14/2023 Influenza Vaccine (#1) 2025 , 03/19/2023, 05/25/2021, Additional history exists Hepatitis B Vaccines (3 of 3 - 19+ 3-dose series) 03/09/2025 11/01/2024, 09/06/2024 Disability Screening 07/26/2025 07/26/2024 SDOH Screening 07/26/2025 07/26/2024 Depression Monitoring 08/23/2025 02/23/2025, 025 Alcohol/Substance Use Screening 12/23/2025 12/23/2024 Tobacco Screening 02/23/2026 02/23/2025 Colorectal Cancer Screening 04/14/2026 FIT DNA/Cologuard 04/14/2026 04/14/2023 Lipid Panel 03/19/2028 03/19/2023 DTaP/Tdap/Td Vaccines (2 - Td or Tdap) 02/23/2035 02/23/2025 RSV Patients and Patients Aged 60 years [...] Routine 02/23/2025 10:28 AM EDT Palpitations Hypokalemia XR KNEE 3 VIEWS LEFT Routine 12/23/2024 11:58 AM EDT Localized swelling of left lower extremity TSH W/REFLEX TO FT4 Routine 12/23/2024 11:53 AM EDT Gait instability VITAMIN B12/FOLATE, SERUM PANEL Routine 12/23/2024 11:53 AM EDT Vitamin B12 deficiency XR ANKLE 3+ VIEWS LEFT Routine 12/23/2024 11:52 AM EDT Localized swelling of left lower extremity XR TIBIA FIBULA 2 VIEWS LEFT Routine 12/23/2024 11:50 AM EDT Localized swelling of left lower extremity HEPATITIS C AB W/REFL TO HCV RNA, QN, PCR Routine 08/09/2024 8:56 AM EST Severe alcohol use disorder (CMS/HCC) LAB COLOGUARD COLON CANCER SCREEN Routine 04/14/2023 9:40 AM EDT Screening for colon cancer LIPID PANEL, STANDARD Routine 03/19/2023 12:09 PM EDT Primary hypertension from Last 3 Months or Most Recently Relevant to Health Maintenance Results * ECG 12 lead (02/23/2025 10:28 AM EDT) Gely Palmer MD - 02/23/2025 10:28 AM EDT Regular rhythm RR 80 bpm High T wave, but not hyperacute Normal axis us Gely Gonzalez MD ECG ORDERABLES Final Result * XR Knee 3 Views Left (12/23/2024 11:58 AM EDT) Anatomical Region Laterality Modality Lower Extremities, Knee Left Radiogra phic Imaging 12/23/2024 11:5 8 AM EDT Narrative 12/23/2024 1:08 PM EDT [address] [address] XRay Report Signed Patient: Mathew Herrmann MR#: [id number] 15 : 1965 Acct:[id number] Age/Sex: 59 / F ADM Date: 12/23/24 Loc: [facility] Attending Dr: Alissa Farnsworth MD Ordering Physician: Alissa Farnsworth Date of Service: 12/23/24 Procedure(s): XR knee LT 3V Accession Number(s): [id number] cc: Alissa Farnsworth EXAMINATION: XR KNEE, LEFT CLINICAL INFORMATION: pain COMPARISON: None available. TECHNIQUE: Four views of the left knee. FINDINGS: No fracture or joint effusion. Alignment is anatomic. Joint spaces are maintained. No abnormal soft tissue calcification. XR/XR knee LT 3V IMPRESSION: Normal left knee. Electronically signed by: Remberto Posadas MD 12/23/2024 01:04 PM EDT Dictated By: Remberto Posadas MD Signed By: <Electronically signed by Remberto Posadas MD in OV> 12/23/24 1304 DD/ 1158 TD/TT: 12/23/24 1210 Fender Repairer: Procedure Note Donotuseinterpreter, Image - 12/23/[address] [address] XRay Report Signed Patient: Mathew HerrmannMR#: [id number] 15 : 1965Acct:[id number] Age/Sex: 59 / FADM Date: 12/23/24 Loc: [facility] Attending Dr: Alissa Farnsworth MD Ordering Physician: Alissa Farnsworth Date of Service: 12/23/24 Procedure(s): XR knee LT 3V Accession Number(s): [id number] cc: Alissa Farnsworth EXAMINATION: XR KNEE, LEFT CLINICAL INFORMATION: pain COMPARISON: None available. TECHNIQUE: Four views of the left knee. FINDINGS: No fracture or joint effusion. Alignment is anatomic. Joint spaces are maintained. No abnormal soft tissue calcification. XR/XR knee LT 3V IMPRESSION: Normal left knee. Electronically signed by: Remberto Posadas MD 12/23/2024 01:04 PM EDT Dictated By: Remberto Posadas MD Signed By: <Electronically signed by Remberto Posadas MD in OV> 12/23/24 1304 DD/ 1158 TD/TT: 12/23/24 1210 Fender Repairer: Alissa Farnsworth MD IMG XR PROCEDURES Edited Resul t - Final * (ABNORMAL) Vitamin B12/Folate, Serum Panel (12/23/2024 11:53 AM EDT) Pathologist [facility] Vitamin B12 927(H) 200 - 900 pg/mL [facility] Comment:NORMAL 200-900 PG/ML INDETERMINATE 160-199 PG/ML DEFICIENT < 160 PG/ML Folate >20.0 > or = 4.0 ng/mL [facility] Comment:Reference Values:> o r = 4.0 ng/mL< 4.0 ng/mL suggests folate deficiency Methotrexate, aminopterin and folinic acid(leucovorin) are chemotherapeutic agents whose molecularstructures are similar to folate; therefore, the Architectfolate assay cannot be used for patients using these drugs. Blood Venous blood specimen / Unknown 12/23/2024 11:53 AM EDT 12/23/2024 2:10 PM EDT Alissa Farnsworth MD LAB BLOOD ORDERABLES Final Res ult [facility] [address] [place] [phone] * TSH W/Reflex to FT4 (12/23/2024 11:53 AM EDT) TSH reflex Free T4 1.31 0.32 - 4.0 uIU/mL [facility] Blood Venous blood specimen / Unknown 12/23/2024 11:53 AM EDT 12/23/2024 2:10 PM EDT us Alissa Farnsworth MD LAB BLOOD ORDERABLES Final Res ult Performing Organization Address City/State/RUST Co de Phone Number [facility] [address] [place] [phone] * XR Ankle 3+ Views Left (12/23/2024 11:52 AM EDT) Anatomical Region Laterality Modality Lower Extremities, Ankle Left Radiogr aphic Imaging 12/23/2024 11:5 2 AM EDT Narrative 12/23/2024 1:09 PM EDT [address] [address] XRay Report Signed Patient: Mathew Herrmann MR#: [id number] 15 : 1965 Acct:[id number] Age/Sex: 59 / F ADM Date: 12/23/24 Loc: [facility] Attending Dr: Alissa Farnsworth MD Ordering Physician: Alissa Farnsworth Date of Service: 12/23/24 Procedure(s): XR ankle LT min 3V Accession Number(s): [id number] cc: Alissa Farnsworth EXAMINATION: XR ANKLE, LEFT CLINICAL INFORMATION: pain and swelling COMPARISON: None available. TECHNIQUE: AP, lateral, and mortise views of the left ankle. FINDINGS: No fracture or suspicious bone lesion. Bone island in the medial malleolus. Alignment is anatomic. No erosions. Joint spaces are maintained. Mortise is intact. The talar dome is normal. Subtalar joints and calcaneus appear normal. There is mild diffuse subcutaneous soft tissue edema. XR/XR ankle LT min 3V IMPRESSION: No acute bony abnormality. Electronically signed by: Remberto Posadas MD 12/23/2024 01:06 PM EDT Dictated By: Remberto Posadas MD Signed By: <Electronically signed by Remberto Posadas MD in OV> 12/23/24 1306 DD/ 1152 TD/TT: 12/23/24 1210 Fender Repairer: Procedure Note Donotmeloter, Image - 12/23/[address] [address] XRay Report Signed Patient: Mathew Herrmann#: [id number] 15 : 1965Acct:[id number] Age/Sex: 59 / FADM Date: 12/23/24 Loc: [facility] Attending Dr: Alissa Farnsworth MD Ordering Physician: Alissa Farnsworth Date of Service: 12/23/24 Procedure(s): XR ankle LT min 3V Accession Number(s): [id number] cc: Alissa Farnsworth EXAMINATION: XR ANKLE, LEFT CLINICAL INFORMATION: pain and swelling COMPARISON: None available. TECHNIQUE: AP, lateral, and mortise views of the left ankle. FINDINGS: No fracture or suspicious bone lesion. Bone island in the medial malleolus. Alignment is anatomic. No erosions. Joint spaces are maintained. Mortise is intact. The talar dome is normal. Subtalar joints and calcaneus appear normal. There is mild diffuse subcutaneous soft tissue edema. XR/XR ankle LT min 3V IMPRESSION: No acute bony abnormality. Electronically signed by: Remberto Posadas MD 12/23/2024 01:06 PM EDT Dictated By: Remberto Posadas MD Signed By: <Electronically signed by Remberto Posadas MD in OV> 12/23/24 1306 DD/ 1152 TD/TT: 12/23/24 1210 Fender Repairer: Alissa Farnsworth MD IMG XR PROCEDURES Edited Resul t - Final * XR Tibia Fibula 2 Views Left (12/23/2024 11:50 AM EDT) Anatomical Region Laterality Modality Lower Extremities, Lower Leg Left Rad iographic Imaging 12/23/2024 11:5 0 AM EDT Narrative 12/23/2024 1:10 PM EDT [address] [address] XRay Report Signed Patient: Mathew Herrmann MR#: [id number] 15 : 1965 Acct:[id number] Age/Sex: 59 / F ADM Date: 12/23/24 [facility] Attending Dr: Alissa Farnsworth MD Ordering Physician: Alissa Farnsworth Date of Service: 12/23/24 Procedure(s): XR tibia fibula LT 2V Accession Number(s): [id number] cc: Alissa Farnsworth EXAMINATION: XR TIBIA AND FIBULA, LEFT CLINICAL INFORMATION: Pain and swelling. COMPARISON: None available. TECHNIQUE: AP and lateral views of the left tibia and fibula were obtained. FINDINGS: No fracture, dislocation, or suspicious bone lesion. Normal alignment. Imaged joints appear normal. There is predominantly medial subcutaneous soft tissue swelling. XR/XR tibia fibula LT 2V IMPRESSION: No acute bony abnormalities. Electronically signed by: Remberto Posadas MD 12/23/2024 01:07 PM EDT RP Dictated By: Rembetro Posadas MD Signed By: <Electronically signed by Remberto Posadas MD in OV> 12/23/24 1307 DD/ 1150 TD/TT: 12/23/24 1210 Fender Repairer: Procedure Note Donotuseinterpreter, Image - 12/23/[address] [address] XRay Report Signed Patient: Mathew HerrmannMR#: [id number] 15 : 1965Acct:[id number] Age/Sex: 59 / FADM Date: 12/23/24 Loc: [facility] Attending Dr: Alissa Fanrsworth MD Ordering Physician: Alissa Farnsworth Date of Service: 12/23/24 Procedure(s): XR tibia fibula LT 2V Accession Number(s): [id number] cc: Alissa Farnsworth EXAMINATION: XR TIBIA AND FIBULA, LEFT CLINICAL INFORMATION: Pain and swelling. COMPARISON: None available. TECHNIQUE: AP and lateral views of the left tibia and fibula were obtained. FINDINGS: No fracture, dislocation, or suspicious bone lesion. Normal alignment. Imaged joints appear normal. There is predominantly medial subcutaneous soft tissue swelling. XR/XR tibia fibula LT 2V IMPRESSION: No acute bony abnormalities. Electronically signed by: Remberto Posadas MD 12/23/2024 01:07 PM EDT Dictated By: Remberto Posadas MD Signed By: <Electronically signed by Remberto Posadas MD in OV> 12/23/24 1307 DD/ 1150 TD/TT: 12/23/24 1210 Fender Repairer: Alissa Farnsworth MD IMG XR PROCEDURES Edited Resul t - Final * Hepatitis C Antibody with Reflex to HCV, RNA, Quantitative, Real-Time PCR (08/09/2024 8:56 AM EST) Hepatitis C Antibody Nonreactive Nonreactive [facility] Comment:Antibodies to HCV no t detected; does not exclude early acuteHCV infection. Blood Venous blood specimen / Unknown 08/09/2024 8:56 AM EST 08/09/2024 2:41 PM EST us Syed Ceron MD LAB BLOOD ORDERABLES Final Resul t [facility] [address] [place] [phone] * Cologuard?? colon cancer screening (04/14/2023 9:40 AM EDT) Cologuard Result Negative Negative 04/18/20 7:07 PM EDT [employer] (CLIA #:[id number]) Comment: NEGATIVE TEST RESULT. A negative Cologuard [...] (Delvis Donald al, N Engl J Med 2014;370(14):1494-4930) The normal value (reference range) for this assay is negative. COLOGUARD RE-SCREENING RECOMMENDATION: Periodic colorectal cancer screening is an important part of preventive healthcare for asymptomatic individuals at average risk for colorectal cancer. Following a negative Cologuard result, the [place] [employer] Society and U.S. Multi-Society Task Force screening guidelines recommend a Cologuard re-screening interval of 3 years. References: [place] [employer] Guideline for Colorectal Cancer Screening: https://www.cancer.org/cancer/qvkky-zilktf-mgublu/crvvumiaj-jduyrfnxg-zynjhvy/ac s-rec ommendations.html.; Caesar DK, Dano HATFIELD, Hyacinth DelgadilloK, Colorectal Cancer Screening: Recommendations for Physicians and Patients from the U.S. Multi-Society Task Force on Colorectal Cancer Screening , Am J Gastroenterology 2017; 112:0978-1043. TEST DESCRIPTION: Composite algorithmic analysis of stool [...] (Delvis Donald al, N Engl J Med 2014;370(14):6014-2216.) Cologuard may produce a false negative or false positive result (no colorectal cancer or precancerous polyp present at colonoscopy follow up). A negative Cologuard test result does not guarantee the absence of CRC or advanced adenoma (pre-cancer). The current Cologuard screening interval is every 3 years. ([place] [employer] and U.S. Multi-Society Task Force). Cologuard performance data in a 10,000 patient pivotal study using colonoscopy as the reference method can be accessed at the following location: www.[employer].Smar[employer] Pockets/results. Additional description of the Cologuard test process, warnings and precautions can be found at www.[employer] Triprd.com. Stool specimen (specimen) 04/14/2023 9:40 AM EDT 04/15/2023 2:03 PM EDT Alissa Farnsworth MD LAB MOLECULAR DIAGNOSTICS SURENDRA CAMACHO Final Result [employer] (CLIA #:[id number]) [place] [address], * (ABNORMAL) Lipid Panel, Standard (03/19/2023 12:09 PM EDT) Triglycerides 129 <150 mg/dL [facility] Comment:Desirable Triglyceri de: less than 150 mg/dLBorderline High Triglyceride 150-199 mg/dLHigh Triglyceride: 200-499 mg/dLVery High Triglyceride: greater than or equal to 5OO mg/dL Cholesterol 215(H) <200 mg/dL [facility] Comment:Desirable Cholestero l: less than 200 mg/dLBorderline High Cholesterol: 200-239 mg/dLHigh Cholesterol: greater than 239 mg/dL LDL Cholesterol Calculated 152(H) <100 mg/dL [facility] Comment:Desirable LDL: less than 100 mg/dLNear Optimal/Above Optimal LDL: 110- 129 mg/dLBorderline High LDL: 130-159 mg/dLHigh LDL: 160-189 mg/dLVery High LDL: greater than or equal to 190 mg/dL HDL Cholesterol 38(L) >40 mg/dL [facility] Comment:Desirable HDL: great er than 40 mg/dL Note: This HDL assay may give artificially low results in patients with liver disease. Blood Venous blood specimen / Unknown 03/19/2023 12:09 PM EDT 03/19/2023 1:13 PM EDT us Alissa Farnsworth MD LAB BLOOD ORDERABLES Final Res ult [facility] [address] [place] [phone] from Last 3 Months or Most Recently Relevant to Health Maintenance Insurance [employer]3 Care Teams Recreation Therapy Aides Teacher Relationship Specialty Start Date End Date Gely Gonzalez MD [address] [place] [address] PCP - General Family Medicine 02/23/25 Syed Ceron MD Consulting Physician Alcohol and Drug Specialist 02/15/24 Benji De La Garza MD Consulting Physician Neurology 10/28/23
--- OUTSIDE RECORDS SUMMARY | 2025-02-23 13:26 | XMS_ITS | Encounter Summary ---
Author Organization [employer] Address [address] [place] [address] 7 [place] [address] Care Team Providers Care City Dispatcher Name Role Phone Alissa Farnsworth MD Primary Care Provider [phone] Gely Gonzalez MD Primary Care Provider [phone] Reason for Visit * Reason Comments Med Refill Encounter Details Date Type Department Care Team (Late st Contact Info) Description 02/18/2025 Refill [facility] [address] [place], [place] [phone] Alissa Farnsworth MD [address] [place] [address] Social History Tobacco Use Types Packs/Day Years [...] Description 02/28/2025 9:20 AM EDT Procedure Visit [facility] MED & PEDS [address] [place] [address] Gely Gonzalez MD 505 [place] [address] 03/07/2025 9:30 AM EDT Office Visit [facility] [address] [place] [address] Syed Ceron MD [address] [place] [address] documented as of this encounter Visit Diagnoses Not on filedocumented in this encounter Additional Health Concerns Assessment Noted Time PHQ-9 Depression Total Score: 16 025 10:25 AM EST documented as of this encounter Care Teams City Dispatcher Relationship Specialty Start Date End Date Alissa Farnsworth MD [address] [place] [address] PCP - General Family Medicine 02/01/23 02/22/25 Gely Gonzalez MD [address] [place] [address] PCP - General Family Medicine 02/23/25 Syed Ceron MD Consulting Physician Alcohol and Drug Specialist 02/15/24 Benji De La Garza MD Consulting Physician Neurology 10/28/23 documented as of this encounter
--- OUTSIDE RECORDS SUMMARY | 2025-02-23 13:27 | XMS_ITS | Encounter Summary ---
Author Organization [employer] Address [address] [facility] 7 [place] [address] Care Team Providers Care Drawing In Hand Name Role Phone Alissa Farnsworth MD Primary Care Provider [phone] Reason for Visit * Reason Onset Date Comments Chart Prep 02/22/2025 Encounter Details Date Type Department Care Team ([facility] st Contact Info) Description 02/22/[address] [facility] PEDS [address] [place] [address] Alissa Farnsworth MD [address] [place] [address] Chart Prep Social History Tobacco Use Types Packs/Day Years [...] encounter Miscellaneous Notes * Telephone Encounter - Teagan Goyal [place] - 02/22/2025 1:11 PM EDT Chart Prep Labs: done Images: done Referrals: complete Vaccines due: Tdap, Hep B, and Zoster Screenings: mammogram, pap smear, STI screening, and LMP Overdue care gaps: PHQ-9 and Tobacco documented in this encounter Plan of Treatment Upcoming Encounters Date Type Department Care Team ([facility] st Contact Info) Description 02/28/2025 9:20 AM EDT Procedure Visit [facility] MED & PEDS [address] [place] [address] Gely Gonzalez MD [address] [place] [address] 03/07/2025 9:30 AM EDT Office Visit [facility] MED & PEDS [address] [place] [address] Syed Ceron MD [address] [place] [phone] documented as of this encounter Visit Diagnoses Not on filedocumented in this encounter Additional Health Concerns Assessment Noted Time PHQ-9 Depression Total Score: 16 08/17/ 025 10:25 AM EST documented as of this encounter Care Teams Drawing In Hand Relationship Specialty Start Date End Date Alissa Farnsworth MD [address] [place] [address] PCP - General Family Medicine 02/01/23 02/22/25 Syed Ceron MD Consulting Physician Alcohol and Drug Specialist 02/15/24 Benji De La Garza MD Consulting Physician Neurology 10/28/23 documented as of this encounter
--- OUTSIDE RECORDS SUMMARY | 2025-02-23 13:27 | XMS_ITS | Clinical Summary ---
Author Organization [facility] Address [address] [place] [address] Care Team Providers Care Database Modeler Name Role Phone Unavailable Primary Care Provider Unavailabl e Source Comments PLEASE NOTE, if this patient is a minor, it may be UNLAWFUL to discuss sensitive information that is contained in these records (such as FAMILY PLANNING, MENTAL HEALTH or SUBSTANCE ABUSE) with the minor patient's parent or other person without the patient's specific authorization.[facility] Social History Tobacco Use Types Packs/Day Years Used Date Smoking Tobacco: Never Assessed Comments Unknown Sex and Gender Information Value Date Recorded Sex Assigned at Female 01/04/2025 10:35 AM PDT Legal Sex Female 10:35 AM PDT Gender Identity Female 01/04/2025 10:35 AM PDT Sexual Orientation Not on file Plan of Treatment Upcoming Encounters Date Type Department Care Team ([facility] Contact Info) Description 03/15/2025 8:45 AM EDT Behavioral Health Visit [facility] [address] [place] [address] JANEL MELGAR [phone] Jeremie Mattson, [address] [place] Melgar [phone] Health Maintenance Due Date Last Done Comments Anxiety Screening 1965 Diabetes Screening 1965 HPV Screening 1965 Pap + HPV 1967 Tobacco Screening 1967 HIV Screening 11/13/1982 Hypertension Screening (#1) 11/13/1985 Imm-DTaP/Tdap/Td (1 - Tdap) 11/13/1986 Cervical Cancer Screening 11/13/1988 Pap Smear 11/13/1988 Breast Cancer Screening (Mammogram) 2007 CT Colonography 11/13/2012 Colonoscopy 11/13/2012 Flexible Sigmoidoscopy 11/13/2012 Imm-Zoster, Recombinant (1 of 2) 11/13/2017 FIT/gFOBT 04/14/2024 04/14/2023 Alcohol and Drug Screen 06/16/2024 Depression Annual Screen 06/16/2024 Imm-Influenza (#1) 2025 05/08/2024, 1 , 05/25/2021, Additional history exists Imm-Hepatitis B (3 of 3 - 19 + 3-dose series) 03/09/2025 11/01/2024, 09/06/2024 Colorectal Cancer Screening 04/14/2026 Fecal DNA 04/14/2026 04/14/2023 Lipid Screening 03/19/2028 03/19/2023 [id number] Completed 07/03/2024, 05/16, 11/04/2020, Additional history exists Imm-Pneumococcal 50+ Completed 07/26/2024, 04/24/20 17 Hepatitis C Screening Completed 08/09/2024 Cervical Ablation/Cold-Knife Conization Discontinued Cervical Cryotherapy Discontinued Colposcopy Discontinued Endometrial Biopsy Discontinued Excision/Leep Discontinued HPV Genotyping Discontinued Vaginal Pap Discontinued Vulvoscopy Discontinued Insurance [facility] [place] [address]
--- OUTSIDE RECORDS SUMMARY | 2025-02-23 13:27 | XMS_ITS | Encounter Summary ---
Author Organization [employer] Address [address] [place] [address] 7 [place] [address] Care Team Providers Care Scanning Supervisor Name Role Phone Gely Gonzalez MD Primary Care Provider [phone] Encounter Details Date Type Department Care Team (Latest Contact Info) Description 02/23/2025 Travel Social History Tobacco Use Types Packs/Day [...] PM EDT documented as of this encounter Functional Status * Over the [...] than half the days 02/23/2025 11:06 AM EDT Calixto Plummer [place] * Trouble falling or staying asleep, or sleeping too much Answer Date of Assessment Author More than half the days 02/23/2025 11:06 AM EDT Calixto Plummer [place] * Feeling tired or having little energy Answer Date of Assessment Author Nearly every day 02/23/2025 11:06 AM JACKIET Claixto Plummer [place] * Poor appetite or overeating Answer [...] Author Nearly every day 02/23/2025 11:06 AM JACKIET Calixto Plummer [place] * Moving or speaking so slowly that other people could have noticed? Or the opposite - being so fidgety or restless that you have been moving around a lot more than usual. Answer Date of Assessment Author Not at all 02/23/2025 11:06 AM EDT Calixto Plummer [place] * Thoughts that you would be better off or hurting yourself in some way Answer Date of Assessment Author Not at all 02/23/2025 11:06 AM EDT Calixto Plummer [place] * Patient Health Questionnaire-9 Score Answer Date of Assessment Author 17 02/23/2025 11:06 AM EDT Calixto Plummer [place] * How difficult have these problems made it for you to do your work, take care of things at home, or get along with other people? Answer Date of Assessment Author Very difficult 02/23/2025 11:06 AM EDT aClixto Plummer [place] documented as of this encounter Plan of Treatment Upcoming Encounters Date Type Department Care Team (Late st Contact Info) Description 02/28/2025 9:20 AM EDT Procedure Visit [facility] MED & PEDS [address] [place] [address] Gely Gonzalez MD [address] [place] [address] 03/07/2025 9:30 AM EDT Office Visit [facility] MED & PEDS [address] [place] [address] Syed Ceron MD [address] [place] [address] documented as of this encounter Visit Diagnoses Not on filedocumented in this encounter Additional Health Concerns Assessment Noted Time PHQ-9 Depression Total Score: 025 11:06 AM EDT documented as of this encounter Care Teams Scanning Supervisor Relationship Specialty Start Date End Date Gely Gonzalez MD [address] [place] [address] PCP - General Family Medicine 02/23/25 Syed Ceron MD Consulting Physician Alcohol and Drug Specialist 02/15/24 Benji De La Garza MD Consulting Physician Neurology 10/28/23 documented as of this encounter
--- OUTSIDE RECORDS SUMMARY | 2025-02-23 13:27 | XMS_ITS | Encounter Summary ---
Author Organization [employer] Address [address] [place] [address] 7 [place] [address] Care Team Providers Care Histopath Tech Name Role Phone Alissa Farnsworth MD Primary Care Provider [phone] Encounter Details Date Type Department Care Team (Latest Contact Info) Description 02/21/2025 Travel Social History Tobacco Use Types Packs/Day [...] Description 02/28/2025 9:20 AM EDT Procedure Visit [facility] MED & PEDS [address] [place] [address] Gely oGnzalez MD [address] [place] [address] 03/07/2025 9:30 AM EDT Office Visit [facility] MED & PEDS [address] [place] [address] Syed Ceron MD [address] [place] [address] documented as of this encounter Visit Diagnoses Not on filedocumented in this encounter Additional Health Concerns Assessment Noted Time PHQ-9 Depression Total Score: 16 03/2 025 10:25 AM EST documented as of this encounter Care Teams Histopath Tech Relationship Specialty Start Date End Date Alissa Farnsworth MD [address] [place] [address] PCP - General Family Medicine 02/01/23 02/22/25 Syed Ceron MD Consulting Physician Alcohol and Drug Specialist 02/15/24 Benji De La Garza MD Consulting Physician Neurology 10/28/23 documented as of this encounter
[2025-02-23 14:26] LABS: MANUAL DIFF FLAG NO
[2025-02-23 14:30] LABS: Appearance Urine Clear; Glucose Urine UA Negative (Negative); PH 6.5 (5.0-9.0); Specific Gravity - Urine 1.020 (1.005-1.025); UMIC TRIGGER UACC YES
[2025-02-23 14:31] LABS: Hematocrit 40.5 % (37.0-47.0); Hemoglobin 13.2 g/dl (12.0-16.0); Imm Gran Abs Auto 0.04 X10*3/uL (0.00-0.03); Imm Gran Pct Auto 0.4 % (0.0-0.4); Lymphocytes Absolute Auto 2.6 X10*3/uL (1.2-4.9); Mean Corpuscular HGB Conc 32.6 g/dl (31.0-35.0); Mean Corpuscular Hemoglobin 33.0 pg (27.0-33.0); Mean Corpuscular Volume 101.3 fL (80.0-98.0); NRBC Abs Auto 0.000 X10*3/uL (0.0-0.012); NRBC Pct Auto 0.0 /100WBC (0.0-0.2); Platelet Count 228 X10*3/uL (160-400); Red Blood Count 4.00 X10*6/uL (4.20-5.50); White Blood Count 10.1 X10*3/uL (4.8-10.8)
[2025-02-23 15:31] LABS: Anion Gap 14 (12-20); Blood Urea Nitrogen 9 mg/dL (9-16); Calcium 9.9 mg/dL (8.4-10.2); Carbon Dioxide 29 mmol/L (22-29); Chloride 105 mmol/L (96-108); Estimated Glomerular Filt Rate > 60; Magnesium 1.7 mg/dL (1.6-2.6); Potassium 3.6 mmol/L (3.3-5.1); Sodium 144 mmol/L (135-145)
[2025-02-24 08:00] LABS: HIV Num 1 0.05 S/CO (0.00-0.99)
== END 2025-02-23 10:47 | disposition home or self-care (01) ==
LOC: HO.CHCLDS 10:46
PROVIDERS: Visit Provider Family Medicine
DX: Z11.4 Encounter for screening for human immunodeficiency virus [HIV] (principal); Z13.89 Encounter for screening for other disorder; R00.2 Palpitations; E87.6 Hypokalemia; R35.0 Frequency of micturition
CPT/HCPCS: 36415; 80048; 81001; 83735; 84443; 85025; 87389

== ENCOUNTER 2025-03-08 10:00 | Outpatient (REF) | payer MEDICAID, SELFPAY ==
--- OUTSIDE RECORDS SUMMARY | 2025-03-08 09:40 | XMS_ITS | Encounter Summary ---
Author Organization [employer] Address [address] [place] [address] 7 [place] [address] Care Team Providers Care Assistant Therapy Aide Name Role Phone Gely Gonzalez MD Primary Care Provider [phone] Reason for Visit * Reason Comments Well woman exam Encounter Details Date Type Department Care Team (Latest Contact Info) Description 03/08/2025 9:40 AM EDT Procedure Visit [facility] MED & PEDS [address] [place] [address] Gely Gonzalez MD [address] [place] [address] Cervical cancer screening (Primary Dx); Encounter for immunization Social History Tobacco Use Types Packs/Day Years [...] Female 01/07/2023 11:56 AM EDT Sexual Orientation Straight 02/23/2025 2: 28 PM EDT documented as of this encounter Last Filed Vital Signs Vital Sign Reading Time Taken Comments Blood Pressure 134/80 03/08/2025 9:40 AM EDT Pulse 76 03/08/2025 9:40 AM EDT Temperature 36.9 C (98.4 F) 03/08/2025 9:40 AM EDT Respiratory Rate 20 03/08/2025 9:40 AM EDT Oxygen Saturation 98% 03/08/2025 9:40 AM EDT Inhaled Oxygen Concentration - - Weight 66.1 kg (145 lb 12.8 oz) 03/08/2025 9:40 AM EDT Height 161 cm (5' 3.39 ) 03/08/2025 9:40 AM EDT Body Mass Index 25.51 03/08/2025 9:40 AM EDT documented in this encounter Progress Notes * Gely Gonzalez MD - 03/08/2025 9:40 AM EDT Subjective Patient ID: Mathew Herrmann is a 59 y.o. female who presents for Well woman exam. 59 y.o. female here for annual well woman preventive exam. LMP: No LMP recorded. Patient is postmenopausal. Sexual activity: Social History Substance and Sexual Activity Sexual activity: Not on file intention: BC method: Smoking hx: Tobacco Use: High Risk (03/08/2025) Tobacco Smoking Tobacco Use: Every Day Smokeless Tobacco Use: Never Passive Exposure: Not on file Alcohol use hx: Social History Substance and Sexual Activity Alcohol use: Yes Alcohol/week: 2.0 standard drinks of alcohol Types: 2 Standard drinks or equivalent per week OBHx: No obstetric history on file. IPV: Denies IPV Reviewed family hx No family history on file. Health Maintenance: No results found for: HMPAP , HMMAMMO , HMCOLON Review of Systems Constitutional: Negative for appetite change, fatigue and fever. HENT: Negative for congestion, postnasal drip and rhinorrhea. Eyes: Negative for discharge and redness. Respiratory: Negative for apnea, cough, chest tightness and shortness of breath. Cardiovascular: Negative for chest pain. Gastrointestinal: Negative for abdominal pain. Endocrine: Negative for polyphagia. Genitourinary: Negative for difficulty urinating, dysuria and urgency. Musculoskeletal: Negative for arthralgias. Neurological: Negative for dizziness, light-headedness, numbness and headaches. Hematological: Negative for adenopathy. Does not bruise/bleed easily. Objective Visit Vitals BP 134/80 Pulse 76 Temp 98.4 ??F (36.9 ??C) (Oral) Resp 20 Ht 5' 3.39 (1.61 m) Wt 145 lb 12.8 oz (66.1 kg) SpO2 98% BMI 25.51 kg/m?? OB Status Postmenopausal Smoking Status Every Day BSA 1.72 m?? Physical Exam Vitals reviewed. Exam conducted with a reservation sales agent present. Constitutional: Appearance: She is obese. HENT: Head: Normocephalic and atraumatic. Pulmonary: Effort: Pulmonary effort is normal. Chest: Chest wall: No deformity, tenderness or crepitus. Breasts: Breasts are symmetrical. Right: Normal. No inverted nipple, mass, nipple discharge, skin change or tenderness. Left: Normal. No inverted nipple, mass, nipple discharge, skin change or tenderness. Genitourinary: Urethra: No prolapse. Vagina: Normal. Cervix: Normal. Rectum: Normal. Comments: Atrophic Musculoskeletal: Cervical back: Normal range of motion. Lymphadenopathy: Upper Body: Right upper body: No supraclavicular, axillary or pectoral adenopathy. Left upper body: No supraclavicular, axillary or pectoral adenopathy. Psychiatric: Mood and Affect: Mood normal. Assessment/Plan Problem List Items Addressed This Visit Cervical cancer screening - Primary 59 y.o. here for cervical cancer screening. Will continue monitoring following ASCCP guidelines. Relevant Orders Pap Smear HPV High Risk with Reflex to Subtypes documented in this encounter Miscellaneous Notes * Assessment & Plan Note - Gely Gonzalez MD - 03/08/2025 9:58 AM EDT Associated Problem(s): Cervical cancer screening 59 y.o. here for cervical cancer screening. Will continue monitoring following ASCCP guidelines. * Addendum Note - Lm Prince MA - 03/08/2025 9:40 AM EDTAddended by: LM PRINCE on: 03/08/2025 10:05 AM Modules accepted: Orders documented in this encounter Plan of Treatment Scheduled Orders Name Type Priority Associated Diagnoses Orde r Schedule Pap Smear Pathology and Cytology Routine Cervical cancer screening Ordered: 03/08/2025 HPV High Risk with Reflex to Subtypes Lab Routine Cervical cancer screening Ordered: 03/08/2025 documented as of this encounter Visit Diagnoses Diagnosis Cervical cancer screening- Primary Screening for malignant neoplasm of the cervix Encounter for immunization documented in this encounter Additional Health Concerns Assessment Noted Time PHQ-9 Depression Total Score: 17 025 11:06 AM EDT documented as of this encounter Care Teams Assistant Therapy Aide Relationship Specialty Start Date End Date Gely Gonzalez MD [address] [place] [address] PCP - General Family Medicine 02/23/25 Syed Ceron MD Consulting Physician Alcohol and Drug Specialist 02/15/24 Benji De La Garza MD Consulting Physician Neurology 10/28/23 documented as of this encounter
--- OUTSIDE RECORDS SUMMARY | 2025-03-09 15:12 | XMS_ITS | Clinical Summary ---
Author Organization [employer] Address [address] [place] [address] [address] [place] [address] Care Team Providers Care Baked Goods Stock Clerk Name Role Phone Gely Gonzalez MD Primary Care Provider [phone] Allergies No known active allergies Medications * [...] day. 90 tablet 3 12/24/19 25 Active potassium chloride ER (Micro-K) 10 MEQ ER capsuleIndicatio ns:Hypokalemia TAKE 2 CAPSULES (20 MEQ) BY MOUTH IN THE MORNING. DO NOT CRUSH OR CHEW. 180 capsule 1 02/03/20 25 Active magnesium oxide (Mag-Ox) 400 MG tablet Take 1 tablet (400 mg) by mouth Once per day. 120 tablet 3 02/25/20 25 Active methocarbamol (Robaxin) 500 MG tabletIndication s:Gait instability,Mult ifactorial gait disorder TAKE 1 TABLET BY MOUTH TWICE A DAY 60 tablet 02/29/20 25 Active triamcinolone (Kenalog) 0.1 % cream Apply topically if needed in the morning and at bedtime (pain and swelling). 30 g 2 09/12/19 24 025 Discontinued methocarbamol (Robaxin) 500 MG tabletIndication s:Gait instability,Mult ifactorial gait disorder TAKE 1 TABLET BY MOUTH TWICE A DAY 60 tablet 01/20/20 25 025 Discontinued zoster vaccine-recombin ant adjuvanted (Shingrix) 50 MCG/0.5ML vaccineIndicatio ns:Encounter for immunization Inject 0.5 mL (50 mcg) into the muscle 1 (one) time for 1 dose. 0.5 mL 02/24/20 25 025 Active Problems Problem Noted Date Diagnosed Date Cervical cancer screening 03/08/2025 Assessment & Plan (03/08/2025 9:58 AM EDT): 59 y.o. here for cervical cancer screening. Will continue monitoring following ASCCP guidelines. Palpitations 02/23/2025 Urinary frequency 02/23/2025 Mixed stress [...] CT for stroke rule out 08/2023 at [facility] Neurology recommended outpatient MRI with and [...] services placed on 02/12 with Migel Brown [phone]. Mathew was also referred to the Kitchen Lead program with [facility]. Patient agreed with the plan. At this time Mathew Herrmann meets criteria for Visit Diagnoses: Problem List Items Addressed This Visit Other Alcohol use disorder, moderate, dependence (CMS/HCC) MDD (major depressive disorder) MARTHA (generalized anxiety disorder) Patient ready to address current needs Yes Strengths include readiness and willingness to change. PLAN: 1. Follow up with [facility]: Not recommended for follow-up 2. Patient goal is to gradually stop alcohol consumption and start individual therapy. 3. Behavioral Recommendations a. OP individual therapy b. Referral for Kitchen Lead with [facility] c. Incorporate self-care and coping [...] life PLAN: 1. Follow up with [facility]: Not recommended for follow-up 2. Patient goal [...] services placed on 02/12 with Migel Brown [phone]. Mathew was also referred to the Kitchen Lead program with [facility]. Patient agreed with the plan. At this time Mathew Herrmann meets criteria for Visit Diagnoses: Problem List Items Addressed This Visit Other Alcohol use disorder, moderate, dependence (CMS/HCC) MDD (major depressive disorder) MARTHA (generalized anxiety disorder) Patient ready to address current needs Yes Strengths include readiness and willingness to change. PLAN: 1. Follow up with [facility]: Not recommended for follow-up 2. Patient goal is to gradually stop alcohol consumption and start individual therapy. 3. Behavioral Recommendations a. OP individual therapy b. Referral for Kitchen Lead with [facility] c. Incorporate self-care and coping skills [...] with inhouse temporarily Consider AUD services at [facility] Assessment & Plan (02/01/2023 11:01 AM EDT): Declines AUD services Has Naltrexone 50mg daily, has not started it GERD (gastroesophageal reflux disease) Hypertension 02/01/2023 Assessment & Plan (09/15/2023 6:09 [...] organization. Date Type Department Care Team Description 03/08/2025 9:40 AM EDT Procedure Visit [facility] [address] [place] [address] Gely Gonzalez MD Cervical cancer screening (Primary Dx); Encounter for immunization 03/08/2025 Travel 02/26/2025 Refill [facility] [address] [place] [phone] Alissa Farnsworth MD Gait instability; Multifactorial gait disorder 02/24/2025 Results Follow-Up [facility] [address] [place] [address] Gely Gonzalez MD HIV-1/2 Antigen and Antibodies, Fourth Generation, with Reflexes, CBC auto differential, TSH W/Reflex to FT4, Additional followed-up results: 3 02/23/2025 9:15 AM EDT Office Visit [facility] [address] [place] [address] Gely Gonzalez MD Vertebral artery stenosis, asymptomatic, right (Primary Dx); Encounter for immunization; Breast cancer screening by mammogram; Encounter for health-related screening; Palpitations; Urinary frequency; Mixed stress and urge urinary incontinence; Hypokalemia 02/23/2025 Travel 02/22/2025 Telephone [facility] [address] [place] [address] Alissa Farnsworth MD Chart Prep 02/21/2025 Travel 02/18/2025 Refill [facility] [address] [place] [phone] Alissa Farnsworth MD 02/16/2025 Patient Outreach [facility] [address] [place] [phone] Alissa Farnsworth MD Pre-visit Planning (Pre visit planning LVM ) 02/01/2025 Refill [facility] [address] [place] [phone] Alissa Farnsworth MD Hypokalemia 01/20/2025 Telephone [facility] [address] [place] [phone] Alissa Farnsworth MD 01/19/2025 Refill [facility] [address] [place] [phone] Alissa Farnsworth MD Gait instability; Multifactorial gait disorder 12/28/2024 Telephone [facility] [address] [place], [place] [phone] Alissa Farnsworth MD Durable Medical Equipment 12/27/[address] [address] Alissa Farnsworth MD Results 12/23/2024 11:30 AM EDT Office Visit [address] [address] Alissa Farnsworth MD Gait instability (Primary Dx); Screening mammogram for breast cancer; Localized swelling of left lower extremity; Vitamin B12 deficiency; Alcohol use disorder, moderate, dependence (CMS/HCC); Primary hypertension; Multiple falls; Multifactorial gait disorder; MARTHA (generalized anxiety disorder); Moderate episode of recurrent major depressive disorder (CMS/HCC) 12/23/2024 Travel 12/22/[address] [address] Alissa Farnsworth MD Chart prep 12/22/2024 Travel 12/20/[address] [address] Alissa Farnsworth MD telephone call; Call Back Request 12/16/[address] [address] Alissa Farnsworth MD chart prep 12/10/2024 Patient Outreach [facility] [address], [place] [phone] Alissa Farnsworth MD Pre-visit Planning (SDOR unable to reach M) 12/07/[address] [address] Syed Ceron MD Tobacco abuse from Last 3 Months Immunizations Immunization Administration Dates Next Due Hep A, Adult 09/06/2024 Hep B, adult 11/01/2024,09/06/2024 02/21/2025 Influenza Injectable Quadriv alant Preservative Free IIV4 MDCK 05/25/2021 Influenza injectable quadrivalent preservative f ree 03/19/2023,03/11/2020 Influenza, IIV3, injectable 04/24/2017 Influenza, Injectable, MDCK, preservative free 1 07/08/2023 Influenza, seasonal, injectable, preservative fr ee 03/08/2025 Pneumococcal Conjugate PCV 20 07/26/2024 Pneumococcal Polysaccharide [...] Orientation Straight 02/23/2025 2: 28 PM EDT Last Filed Vital Signs Vital [...] Mass Index 25.51 03/08/2025 9:40 AM EDT Plan of Treatment Health Maintenance Due Date Last Done Comments CT Colonography 1965 Colonoscopy 1965 FIT 1965 Sigmoidoscopy 1965 Pap Smear 11/13/1988 Cervical Cancer Screening 11/13/1997 HPV/Cotest 11/13/1997 Mammogram 2007 Zoster Vaccines (1 of 2) 11/13/2017 FOBT 04/14/2024 04/14/2023 Hepatitis B Vaccines (3 of 3 - 19+ 3-dose series) 03/09/2025 11/01/2024, 09/06/2024 Disability Screening 07/26/2025 07/26/2024 SDOH Screening 07/26/2025 07/26/2024 Depression Monitoring 08/23/2025 02/23/2025, 025 Alcohol/Substance Use Screening 12/23/2025 12/23/2024 Tobacco Screening 03/08/2026 03/08/2025 Colorectal Cancer Screening 04/14/2026 FIT DNA/Cologuard 04/14/2026 [...] on patient's age to complete this topic HIV Screening Completed 02/23/2025 Influenza Vaccine Completed 03/08/2025, , 03/19/2023, Additional history exists HIB Vaccines Aged Out No longer eligi [...] Procedure Name Priority Date/Time Associated Diagnosis Comments MAGNESIUM Routine 02/23/2025 10:49 AM EDT Hypokalemia BASIC METABOLIC PANEL Routine 02/23/2025 10:49 AM EDT Hypokalemia TSH W/REFLEX TO FT4 Routine 02/23/2025 1 0:49 AM EDT Palpitations CBC WITH AUTO DIFFERENTIAL Routine 02/23/2025 10:49 AM EDT Palpitations HIV 1/2 ANTIGEN/ANTIBODY, FOURTH GENERATION W/RFL Routine 02/23/2025 10:49 AM EDT Encounter for health-related screening ECG 12-LEAD Routine 02/23/2025 10:28 AM EDT Palpitations Hypokalemia URINALYSIS, COMPLETE, WITH REFLEX TO CULTURE Routine 02/23/2025 12:00 AM EDT Urinary frequency XR KNEE 3 VIEWS LEFT Routine 12/23/2024 11:58 AM EDT Localized swelling of left lower extremity TSH W/REFLEX TO FT4 Routine 12/23/2024 1 1:53 AM EDT Gait instability VITAMIN B12/FOLATE, SERUM [...] Recently Relevant to Health Maintenance Results * TSH W/Reflex to FT4 (02/23/2025 10:49 AM EDT) Only the most recent of2 resultswithin the time period is included. TSH reflex Free T4 1.39 0.32 - 4.0 uIU/mL [facility] Blood Venous blood specimen / Unknown 02/23/2025 10:49 AM EDT 02/23/2025 2:35 PM EDT us Gely Gonzalez MD LAB BLOOD ORDERABLES Final Re sult [facility] [address] [place] [phone] * (ABNORMAL) CBC auto differential (02/23/2025 10:49 AM EDT) White Blood Count 10.1 4.8 - 10.8 X10*3/uL [facility] Red Blood Count 4.00(L) 4.20 - 5.50 X10*6/uL [facility] Hemoglobin 13.2 12.0 - 16.0 g/dl [facility] Hematocrit 40.5 37.0 - 47.0 % [facility] Mean Corpuscular Volume 101.3(H) 80.0 - 98.0 fL [facility] Mean Corpuscular Hemoglobin 33.0 27.0 - 33.0 pg [facility] Mean Corpuscular HGB Conc 32.6 31.0 - 35.0 g/dl [facility] Red Cell Distribution Width 13.0 11.0 - 16.0 % [facility] Platelet Count 228 160 - 400 X10*3/uL [facility] Mean Platelet Volume 10.8 9.4 - 12.3 fL [facility] Neutrophils Percent Auto 64.5 45 - 73 % [facility] Imm Gran Pct Auto 0.4 0.0 - 0.4 % [facility] Lymphocytes Percent Auto 25.4 20 - 40 % [facility] Monocytes Percent Auto 5.9 2 - 11 % [facility] Eosinophils Percent Auto 3.3 0 - 4 % [facility] Basophils Percent Auto 0.5 0 - 2 % [facility] NRBC Pct Auto 0.0 0.0 - 0.2 /100WBC [facility] Neutrophils Absolute Auto 6.5 2.0 - 8.3 x10*3/uL [facility] Imm Gran Abs Auto 0.04(H) 0.00 - 0.03 X10*3/uL [facility] Lymphocytes Absolute Auto 2.6 1.2 - 4.9 X10*3/uL [facility] Monocytes Absolute Auto 0.6 0.1 - 1.2 X10*3/uL [facility] Eosinophils Absolute Auto 0.3 0.0 - 0.4 X10*3/uL [facility] Basophils Absolute Auto 0.1 0.0 - 0.2 X10*3/uL [facility] NRBC Abs Auto 0.000 0.0 - 0.012 X10*3/uL [facility] Blood Venous blood specimen / Unknown 02/23/2025 10:49 AM EDT 02/23/2025 2:23 PM EDT Gely Gonzalez MD LAB BLOOD ORDERABLES Final Re sult Performing Organization Address City/[facility]/ZIP Co de Phone Number [facility] [address] [place] [phone] * HIV-1/2 Antigen and Antibodies, Fourth Generation, with Reflexes (02/23/2025 10:49 AM EDT) HIV AB/AG Nonreactive Nonreactive [facility] Comment:HIV-1 p24 Ag and/or HIV-1/HIV-2 Ab not detected.A test result that is nonreactive does not exclude thepossibility of exposure to or infection with HIV-1 and/orHIV-2. Nonreactive results in this assay for individualswith prior exposure to HIV-1 and/or HIV-2 may be due toantigen and antibody levels that are below the limit ofdetection of this assay.The Evgen HIV Ag/Ab Combo assay result andsupplemental assay results should be interpreted inconjunction with the patient's clinical presentation,history and other laboratory results. If the results areinconsistent with clinical evidence, additional testing issuggested to confirm the result. Blood Venous blood specimen / Unknown 02/23/2025 10:49 AM EDT 02/23/2025 2:35 PM EDT Gely Gonzalez MD LAB BLOOD ORDERABLES Final Re sult Performing Organization Address City/[facility]/ZIP Co de Phone Number [facility] [address] [place] [phone] * Magnesium (02/23/2025 10:49 AM EDT) Magnesium 1.7 1.6 - 2.6 mg/dL [facility] Blood Venous blood specimen / Unknown 02/23/2025 10:49 AM EDT 02/23/2025 2:35 PM EDT Gely Gonzalez MD LAB BLOOD ORDERABLES Final Re sult Performing Organization Address [facility] Co de Phone Number [facility] [address] [place] [phone] * Basic Metabolic Panel (02/23/2025 10:49 AM EDT) Sodium 144 135 - 145 mmol/L [facility] Potassium 3.6 3.3 - 5.1 mmol/L [facility] Chloride 105 96 - 108 mmol/L [facility] Carbon Dioxide 29 22 - 29 mmol/L [facility] Anion Gap 14 12 - 20 [facility] Urea Nitrogen (BUN) 9 9 - 16 mg/dL [facility] Creatinine, Serum 0.63 0.5 - 1.4 mg/dL [facility] Estimated Glomerular Filt Rate >60 [facility] Comment:Chronic Kidney Disea se: Estimated GFR < 60 mL/min/1.88w6Dpvfgl Kidney Disease: Estimated GFR < 15 mL/min/1.73m2 Glucose 99 60 - 115 mg/dL [facility] Calcium 9.9 8.4 - 10.2 mg/dL [facility] Blood Venous blood specimen / Unknown 02/23/2025 10:49 AM EDT 02/23/2025 2:35 PM EDT Gely Gonzalez MD LAB BLOOD ORDERABLES Final Re sult Performing Organization Address [facility] Co de Phone Number [facility] [address] [place] [phone] * ECG 12 lead (02/23/2025 10:28 AM EDT) Narrative Gely Gonzalez MD - 02/23/2025 10:28 AM EDT Regular rhythm RR 80 bpm High T wave, but not hyperacute Normal axis Gely Gonzalez MD ECG ORDERABLES Final Result * (ABNORMAL) Urinalysis, Complete, with Reflex to Culture (02/23/2025 12:00 AM EDT) Color Urine Dark Yellow [facility] Appearance Urine Clear [facility] PH 6.5 5.0 - 9.0 [facility] Glucose Urine UA Negative Negative mg/dL [facility] Urine Blood Negative Negative [facility] Specific Iva - Urine 1.020 1.005 - 1.025 [facility] Urine Protein 30 (1+)(A) Neg-Trace mg/dL [facility] Urine Ketones Trace Negative mg/dL [facility] Nitrite Urine Negative Negative [facility] Leukocyte Esterase Urine Negative Negative [facility] RBC Urine 0-2 0 - 2 /HPF [facility] Urine WBC 0-5 0 - 5 /HPF [facility] Urine Squamous Epithelial Cell 6-10 0 - 2 /HPF [facility] Urine Bacteria 1+ None Seen [facility] Hyaline Casts, Urine 0-2 0 - 2 /LPF [facility] Urine 02/23/2025 02/23/2025 Narrative [facility] - 02/23/2025 2:34 PM EDT [id number], Clean Catch us Gely Gonzalez MD LAB URINE ORDERABLES Final Re sult [facility] [address] [place] [phone] * XR Knee 3 Views Left (12/23/2024 11:58 AM EDT) Anatomical Region Laterality Modality Lower Extremities, Knee Left Radiogra phic Imaging 12/23/2024 11:5 8 AM EDT Narrative 12/23/2024 1:08 PM EDT [address] [address] XRay Report Signed Patient: Mathew Herrmann MR#: [id number] 15 : 1965 Acct:[id number] Age/Sex: 59 / F ADM Date: 12/23/24 Loc: .[facility] Attending Dr: Alissa Farnsworth MD Ordering Physician: Alissa Farnsworth Date of Service: 12/23/24 Procedure(s): XR knee LT 3V Accession Number(s): [id number] cc: Alissa Farnsworth EXAMINATION: XR KNEE, LEFT CLINICAL INFORMATION: pain COMPARISON: None available. TECHNIQUE: Four views of the left knee. FINDINGS: No fracture or joint effusion. Alignment is anatomic. Joint spaces are maintained. No abnormal soft tissue calcification. XR/XR knee LT 3V IMPRESSION: Normal left knee. Electronically signed by: Remberto Posadas MD 12/23/2024 01:04 PM EDT RP Dictated By: Remberto Posadas MD Signed By: <Electronically signed by Remberto Posadas MD in OV> 12/23/24 1304 DD/ 1158 TD/TT: 12/23/24 1210 Resident Doctor: Procedure Note Donotuseinterpreter, Image - 12/23/[address] [address] XRay Report Signed Patient: Randy Herrmann#: [id number] 15 : 1965Acct:[id number] Age/Sex: 59 / FADM Date: 12/23/24 Loc: [facility] Attending Dr: Alissa Farnsworth MD Ordering Physician: Alissa Farnsworth Date of Service: 12/23/24 Procedure(s): XR knee LT 3V Accession Number(s): [id number] cc: Alissa Farnsworth EXAMINATION: XR KNEE, LEFT CLINICAL INFORMATION: pain COMPARISON: None available. TECHNIQUE: Four views of the left knee. FINDINGS: No fracture or joint effusion. Alignment is anatomic. Joint spaces are maintained. No abnormal soft tissue calcification. XR/XR knee LT 3V IMPRESSION: Normal left knee. Electronically signed by: Remberto Posadas MD 12/23/2024 01:04 PM EDT RP Dictated By: Remberto Posadas MD Signed By: <Electronically signed by Remberto Posadas MD in OV> 12/23/24 1304 DD/ 1158 TD/TT: 12/23/24 1210 Resident Doctor: us Alissa Farnsworth MD IMG XR PROCEDURES Edited Resul t - Final * (ABNORMAL) Vitamin B12/Folate, Serum Panel (12/23/2024 11:53 AM EDT) Vitamin B12 927(H) 200 - 900 pg/mL [facility] Comment:NORMAL 200-900 PG/ML INDETERMINATE 160-199 PG/ML DEFICIENT < 160 PG/ML Folate >20.0 > or = 4.0 ng/mL [facility] Comment:Reference Values:> o r = 4.0 [...] ORDERABLES Final Res ult Performing Organization Address City/State/[facility] Co de Phone Number [facility] [address] [place] [phone] * XR Ankle 3+ Views Left (12/23/2024 11:52 AM EDT) Anatomical Region Laterality Modality Lower Extremities, Ankle Left Radiogr aphic Imaging 12/23/2024 11:5 2 AM EDT Narrative 12/23/2024 1:09 PM EDT [address] [address] XRay Report Signed Patient: Mathew Herrmann MR#: [id number] 15 : 1965 Acct:[id number] Age/Sex: 59 / F ADM Date: 12/23/24 Loc: [facility] Attending Dr: Alissa Farnsworth MD Ordering Physician: Alissa Farnsworth Date of Service: 12/23/24 Procedure(s): XR ankle LT min 3V Accession Number(s): [id number] cc: Alissa Farnsworth EXAMINATION: XR ANKLE, LEFT [...] 12/23/24 1306 DD/ 1152 TD/TT: 12/23/24 1210 Resident Doctor: Procedure Note Donotuseinterpreter, Image - 12/23/[address] [address] XRay Report Signed Patient: Randy Herrmann#: [id number] 15 : 1965Acct:[id number] Age/Sex: 59 / FADM Date: 12/23/24 Loc: [facility] Attending Dr: Alissa Farnsworth MD Ordering Physician: Alissa Farnsworth Date of Service: 12/23/24 Procedure(s): XR ankle LT min 3V Accession Number(s): [id number] cc: Alissa Farnsworth EXAMINATION: XR ANKLE, LEFT [...] Remberto Posadas MD 12/23/2024 01:06 PM EDT RP Dictated By: Remberto Posadas MD Signed By: <Electronically signed by Remberto Posadas MD in OV> 12/23/24 1306 DD/ 1152 TD/TT: 12/23/24 1210 Resident Doctor: Alissa Farnsworth MD IMG XR PROCEDURES Edited Resul t - Final * XR Tibia Fibula 2 Views Left (12/23/2024 11:50 AM EDT) Anatomical Region Laterality Modality Lower Extremities, Lower Leg Left Rad iographic Imaging 12/23/2024 11:5 0 AM EDT Narrative 12/23/2024 1:10 PM EDT [address] [address] XRay Report Signed Patient: Mathew Herrmann MR#: [id number] 15 : 1965 Acct:[id number] Age/Sex: 59 / F ADM Date: 12/23/24 Loc: [facility] Attending Dr: Alissa Farnsworth MD Ordering Physician: Alissa Farnsworth Date of Service: 12/23/24 Procedure(s): XR tibia fibula LT 2V Accession Number(s): [id number] cc: Alissa Farnsworth EXAMINATION: XR TIBIA AND [...] 12/23/2024 01:07 PM EDT RP Dictated By: Remberto Posadas MD Signed By: <Electronically signed by Remberto Posadas MD in OV> 12/23/24 1307 DD/ 1150 TD/TT: 12/23/24 1210 Resident Doctor: Procedure Note Donotuseinterpreter, Image - 12/23/[address] [address] XRay Report Signed Patient: Randy Herrmann#: [id number] 15 : 1965Acct:[id number] Age/Sex: 59 / FADM Date: 12/23/24 Loc: [facility] Attending Dr: Alissa Farnsworth MD Ordering Physician: Alissa Farnsworth Date of Service: 12/23/24 Procedure(s): XR tibia fibula LT 2V Accession Number(s): [id number] cc: Alissa Farnsworth EXAMINATION: XR TIBIA AND [...] 12/23/24 1307 DD/ 1150 TD/TT: 12/23/24 1210 Resident Doctor: Alissa Farnsworth MD IMG XR PROCEDURES Edited Resul t - Final * Hepatitis C Antibody with Reflex to HCV, RNA, Quantitative, Real-Time PCR (08/09/2024 8:56 AM EST) Hepatitis C Antibody Nonreactive Nonreactive [facility] Comment:Antibodies to HCV no t detected; does not exclude early acuteHCV infection. Blood Venous blood specimen / Unknown 08/09/2024 8:56 AM EST 08/09/2024 2:41 PM EST us Syed Ceron MD LAB BLOOD ORDERABLES Final Resul t [facility] [address] [place] [phone] * Cologuard?? colon cancer screening (04/14/2023 9:40 AM EDT) Cologuard Result Negative Negative 04/18/20 7:07 PM EDT [facility] (CLIA #:[id number]) Comment: NEGATIVE TEST RESULT. A negative Cologuard [...] screened with both Cologuard and colonoscopy. (Delvis Moses. et al, N Engl J Med 2014;370(14):2697-0546) The normal value (reference range) for this assay is negative. COLOGUARD RE-SCREENING RECOMMENDATION: Periodic colorectal cancer screening is an important part of preventive healthcare for asymptomatic individuals at average risk for colorectal cancer. Following a negative Cologuard result, the [place] [employer] and U.S. Multi-Society Task Force screening guidelines recommend a Cologuard re-screening interval of 3 years. References: [place] [employer] [employer] Guideline for Colorectal Cancer Screening: https://www.cancer.org/cancer/wlfos-sbuzor-emnoum/bjnxlycta-jzfdthemb-atufrvg/ac s-rec ommendations.html.; Caesar KAISER, Dano HATFIELD, Hyacinth DelgadilloK, Colorectal Cancer Screening: Recommendations for Physicians and Patients from the U.S. Multi-Society Task Force on Colorectal Cancer Screening , Am J Gastroenterology 2017; 112:3224-9597. TEST DESCRIPTION: Composite algorithmic analysis of stool [...] Larsen et al, N Engl J Med 2014;370(14):5816-0158.) Cologuard may produce a false negative or false positive result (no colorectal cancer or precancerous polyp present at colonoscopy follow up). A negative Cologuard test result does not guarantee the absence of CRC or advanced adenoma (pre-cancer). The current Cologuard screening interval is every 3 years. ([place] [employer] [employer] and U.S. Multi-Society Task Force). Cologuard performance data in a 10,000 patient pivotal study using colonoscopy as the reference method can be accessed at the following location: www.Getting-in/results. Additional description of the Cologuard test process, warnings and precautions can be found at www.[employer] Holdings[employer]1000memoriesrd.com. Stool specimen (specimen) 04/14/2023 9:40 AM EDT 04/15/2023 2:03 PM EDT Alissa Farnsworth MD LAB MOLECULAR DIAGNOSTICS [facility] Final Result [facility] (CLIA #:[id number]) [place] [address], * (ABNORMAL) Lipid Panel, Standard (03/19/2023 12:09 PM EDT) Triglycerides 129 <150 mg/dL [facility] Comment:Desirable Triglyceri de: less than 150 mg/dLBorderline High Triglyceride 150-199 mg/dLHigh Triglyceride: 200-499 mg/dLVery High Triglyceride: greater than or equal to 5OO mg/dL Cholesterol 215(H) <200 mg/dL [facility] Comment:Desirable Cholestero l: less than 200 mg/dLBorderline High Cholesterol: 200-239 mg/dLHigh Cholesterol: greater than 239 mg/dL LDL Cholesterol Calculated 152(H) <100 mg/dL [facility] Comment:Desirable LDL: less than 100 mg/dLNear Optimal/Above Optimal LDL: 110- 129 mg/dLBorderline High LDL: 130-159 mg/dLHigh LDL: 160-189 mg/dLVery High LDL: greater than or equal to 190 mg/dL HDL Cholesterol 38(L) >40 mg/dL [facility] Comment:Desirable HDL: great er than 40 mg/dL Note: This HDL assay may give artificially low results in patients with liver disease. Blood Venous blood specimen / Unknown 03/19/2023 12:09 PM EDT 03/19/2023 1:13 PM EDT us Alissa Farnsworth MD LAB BLOOD ORDERABLES Final Res ult [facility] [address] [place] [phone] from Last 3 Months or Most Recently Relevant to Health Maintenance Insurance [facility] C3 Care Teams Baked Goods Stock Clerk Relationship Specialty Start Date End Date Gely Gonzalez MD [address] [place] [address] PCP - General Family Medicine 02/23/25 Syed Ceron MD Consulting Physician Alcohol and Drug Specialist 02/15/24 Benji De La Garza MD Consulting Physician Neurology 10/28/23
--- OUTSIDE RECORDS SUMMARY | 2025-03-09 15:12 | XMS_ITS | Encounter Summary ---
Author Organization [employer] Address [address] [place] [address] 7 [place] [address] Care Team Providers Care Board Lining Machine Operator Name Role Phone Gely Gonzalez MD Primary Care Provider [phone] Encounter Details Date Type Department Care Team (Latest Contact Info) Description 03/08/2025 Travel Social History Tobacco Use Types Packs/Day [...] as of this encounter Plan of Treatment Not on file documented as of this encounter Visit Diagnoses Not on filedocumented in this encounter Additional Health Concerns Assessment Noted Time PHQ-9 Depression Total Score: 17 025 11:06 AM EDT documented as of this encounter Care Teams Board Lining Machine Operator Relationship Specialty Start Date End Date Gely Gonzalez MD [address] [place] [address] PCP - General Family Medicine 02/23/25 Syed Ceron MD Consulting Physician Alcohol and Drug Specialist 02/15/24 Benji De La Garza MD Consulting Physician Neurology 10/28/23 documented as of this encounter
--- OUTSIDE RECORDS SUMMARY | 2025-03-09 15:12 | XMS_ITS | Encounter Summary ---
Author Organization [employer] Address [address] [place] [address] 7 [place] [address] Care Team Providers Care Soybean Specialties Cook Name Role Phone Alissa Farnsworth MD Primary Care Provider [phone] Gely Gonzalez MD Primary Care Provider [phone] Reason for Visit * Reason Onset Date Comments Call Back Request 11/28/2023 Encounter Details Date Type Department Care Team ([facility] st Contact Info) Description 11/28/2023 Telephone [facility] MEDICINE [address] [place] [address] Ailssa Farnsworth MD [address] [place] [address] Call Back Request Social History Tobacco Use [...] Pt states called medical records to picker box operator a copy but was told to contact PCP as they could not find form. Pt needs to turn in form as soon as possible. Please contact pt at [phone] documented in this encounter Plan of Treatment Not on file documented as of this encounter Visit Diagnoses Not on filedocumented in this encounter Additional Health Concerns Assessment Noted Time PHQ-9 Depression Total Score: 19 023 10:36 PM EDT documented as of this encounter Care Teams Soybean Specialties Cook Relationship Specialty Start Date End Date Alissa Farnsworth MD [address] [place] [address] PCP - General Family Medicine 02/01/23 02/22/25 Gely Gonzalez MD [address] [place] [address] PCP - General Family Medicine 02/23/25 Syed Ceron MD Consulting Physician Alcohol and Drug Specialist 02/15/24 Benji De La Garza MD Consulting Physician Neurology 10/28/23 documented as of this encounter
--- OUTSIDE RECORDS SUMMARY | 2025-03-09 15:12 | XMS_ITS | Encounter Summary ---
Author Organization [employer] Address [address] [place] [address] 7 [place] [address] Care Team Providers Care Continuous Pillowcase Cutter Name Role Phone Alissa Farnsworth MD Primary Care Provider [phone] Gely Gonzalez MD Primary Care Provider [phone] Reason for Visit * Reason Comments Med Refill Encounter Details Date Type Department Care Team (Late st Contact Info) Description 02/18/2025 Refill [facility] MEDICINE [address] [place], [place] [phone] Alissa Farnsworth MD [address] [place] [address] Social History Tobacco Use Types Packs/Day Years [...] documented as of this encounter Care Teams Continuous Pillowcase Cutter Relationship Specialty Start Date End Date Alissa Farnsworth MD [address] [place] [address] PCP - General Family Medicine 02/01/23 02/22/25 Gely Gonzalez MD [address] [place] [address] PCP - General Family Medicine 02/23/25 Syed Ceron MD Consulting Physician Alcohol and Drug Specialist 02/15/24 Benji De La Garza MD Consulting Physician Neurology 10/28/23 documented as of this encounter
--- OUTSIDE RECORDS SUMMARY | 2025-03-09 15:12 | XMS_ITS | Clinical Summary ---
Author Organization [facility] Address [address] [place] [address] Care Team Providers Care Heliarc Welder Name Role Phone Unavailable Primary Care Provider [...] Upcoming Encounters Date Type Department Care Team ([facility] Contact Info) Description 03/15/2025 8:45 AM EDT Behavioral Health Visit [facility] [address] [place] [address] J[place]EL MELGAR [phone] Jeremie Mattson, [address] [place] Melgar [phone] Health Maintenance Due Date Last Done Comments [...] DNA 04/14/2026 04/14/2023 Lipid Screening 03/19/2028 03/19/2023 [id number] Completed 07/03/2024, 05/16, 11/04/2020, Additional history exists Imm-Pneumococcal 50+ Completed 07/26/2024, 04/24/20 17 Hepatitis C Screening Completed 08/09/2024 Cervical Ablation/Cold-Knife Conization Discontinued Cervical Cryotherapy Discontinued Colposcopy Discontinued Endometrial Biopsy Discontinued Excision/Leep Discontinued HPV Genotyping Discontinued Vaginal Pap Discontinued Vulvoscopy Discontinued Insurance [facility]
--- OUTSIDE RECORDS SUMMARY | 2025-03-09 15:12 | XMS_ITS | Encounter Summary ---
Author Organization [employer] Address [address] [place] [address] [address] [place] [address] Care Team Providers Care Provisioning Analyst Name Role Phone Alissa Farnsworth MD Primary Care Provider [phone] Gely Gonzalez MD Primary Care Provider [phone] Encounter Details Date Type Department Care Team ([facility] st Contact Info) Description 03/19/2023 Orders Only [facility] MEDICINE [address] [place] [address] Alissa Farnsworth MD [address] [place] [address] Social History Tobacco Use Types Packs/Day Years [...] Noted Time PHQ-9 Depression Total Score: 19 02/10/2 023 10:36 PM EDT documented as of this encounter Care Teams Provisioning Analyst Relationship Specialty Start Date End Date Alissa Farnsworth MD [address] [place] [address] PCP - General Family Medicine 02/01/23 02/22/25 Gely Gonzalez MD [address] [place] [address] PCP - General Family Medicine 02/23/25 Syed Ceron MD Consulting Physician Alcohol and Drug Specialist 02/15/24 Benji De La Garza MD Consulting Physician Neurology 10/28/23 documented as of this encounter
== END 2025-03-08 10:01 | disposition home or self-care (01) ==
LOC: HO.LNP 10:00
PROVIDERS: Visit Provider Family Medicine
DX: Z12.4 Encounter for screening for malignant neoplasm of cervix (principal); Z11.51 Encounter for screening for human papillomavirus (HPV)
CPT/HCPCS: 87626; 88175

== ENCOUNTER 2025-03-21 10:37 | Outpatient (REF) | payer MEDICAID, SELFPAY ==
--- OUTSIDE RECORDS SUMMARY | 2025-03-21 12:37 | XMS_ITS | Encounter Summary ---
Author Organization [employer] Address [address] [place] [address] 7 [place] [address] Care Team Providers Care Business Intern Name Role Phone Alissa Farnsworth MD Primary Care Provider [phone] Gely Gonzalez MD Primary Care Provider [phone] Encounter Details Date Type Department Care Team (Late Contact Info) Description 03/19/2023 Orders Only [facility] MEDICINE [address] [place], [place] [phone] Alissa Farnsworth MD [address] [place] [address] Social History Tobacco Use Types Packs/Day Years [...] Department Care Team (Late Contact Info) Description 03/28/2025 11:15 AM EDT Office Visit [facility] MED & PEDS [address] [place], [place] [phone] Syed Ceron MD [address] [place] [address] documented as of this encounter Visit Diagnoses Not on filedocumented in this encounter Additional Health Concerns Assessment Noted Time PHQ-9 Depression Total Score: 19 023 10:36 PM EDT documented as of this encounter Care Teams Business Intern Relationship Specialty Start Date End Date Alissa Farnsworth MD [address] [place] [address] PCP - General Family Medicine 02/01/23 02/22/25 Gely Gonzalez MD [address] [place] [address] PCP - General Family Medicine 02/23/25 Syed Ceron MD Consulting Physician Alcohol and Drug Specialist 02/15/24 Benji De La Garza MD Consulting Physician Neurology 10/28/23 documented as of this encounter
--- OUTSIDE RECORDS SUMMARY | 2025-03-21 12:37 | XMS_ITS | Encounter Summary ---
Author Organization [email or web address] Address [address] [place] [address] [address] [place] [address] Care Team Providers Care Study Hall Supervisor Name Role Phone Alissa Farnsworth MD Primary Care Provider [phone] Gely Gonzalez MD Primary Care Provider Reason for Visit * Reason Comments Med Refill Encounter Details Date Type Department Care Team (Late st Contact Info) Description 02/18/2025 Refill [facility] MEDICINE [address] [place], [place] [phone] Alissa Farnsworth MD [address] [place] [address] Social History Tobacco Use Types Packs/Day Years [...] Care Team (Late st Contact Info) Description 03/28/2025 11:15 AM EDT Office Visit [facility] PEDS [address] [place] [address] Syed Ceron MD [address] [place] [address] documented as of this encounter Visit Diagnoses Not on filedocumented in this encounter Additional Health Concerns Assessment Noted Time PHQ-9 Depression Total Score: 16 025 10:25 AM EST documented as of this encounter Care Teams Study Hall Supervisor Relationship Specialty Start Date End Date Alissa Farnsworth MD [address] [place] [address] PCP - General Family Medicine 02/01/23 02/22/25 Gely Gonzalez MD [address] [place] [address] PCP - General Family Medicine 02/23/25 Syed Ceron MD Consulting Physician Alcohol and Drug Specialist 02/15/24 Benji De La Garza MD Consulting Physician Neurology 10/28/23 documented as of this encounter
--- OUTSIDE RECORDS SUMMARY | 2025-03-21 12:37 | XMS_ITS | Clinical Summary ---
Author Organization [employer] Address [address] [place] [address] 7 [place] [address] Care Team Providers Care Outsole Leveler Name Role Phone Gely Gonzalez MD Primary Care Provider [phone] Allergies No known active allergies Medications * [...] REPLACE CAP. 48 mL 3 10/19/19 25 026 Active naltrexone (Depade) 50 MG tabletIndication s:Severe alcohol use disorder (CMS/HCC) (HCC) Take 1 tablet (50 mg) by mouth Once per day. 90 tablet 3 11/02/19 25 026 Active ibuprofen 600 MG tablet TAKE 1 TABLET (600 MG) BY MOUTH EVERY 6 (SIX) HOURS 90 tablet 3 11/06/19 25 Active gabapentin (Neurontin) 600 MG tabletIndication s:Alcohol use disorder, moderate, dependence (CMS/HCC) (HCC) Take 1 tablet (600 mg) by mouth 3 times daily. 90 tablet 11 12/24/19 25 026 Active pyridoxine (Vitamin B-6) 50 MG tabletIndication s:Alcohol use disorder, moderate, dependence (CMS/HCC) (HCC) Take 1 tablet (50 mg) by mouth Once per day. 90 tablet 3 12/24/19 25 026 Active escitalopram (Lexapro) 10 MG tabletIndication s:MARTHA (generalized anxiety disorder),Modera te episode of recurrent major depressive disorder (CMS/HCC) (HCC) Take 1 tablet (10 mg) by mouth Once per day. 90 tablet 1 12/24/19 25 025 Active riboflavin (Vitamin B-2) 400 MG tabletIndication s:Alcohol use disorder, moderate, dependence (CMS/HCC) (HCC) Take 1 tablet (400 mg) by mouth [...] A DAY 60 tablet 02/29/20 25 Active nicotine (Nicoderm, Step 3) 7 MG/24HR patchIndications :Tobacco abuse PLACE 1 PATCH ON THE SKIN AT THE SAME TIME EACH DAY. REMOVE BEFORE GOING TO BED 28 patch 2 03/11/20 25 Active triamcinolone (Kenalog) 0.1 % cream Apply topically if needed in the morning and at bedtime (pain and swelling). 30 g 2 09/12/19 24 025 Discontinued nicotine (Nicoderm, Step 3) 7 MG/24HR patchIndications :Tobacco abuse PLACE 1 PATCH ON THE SKIN AT THE SAME TIME EACH DAY. REMOVE BEFORE GOING TO BED 28 patch 2 12/09/19 25 025 Discontinued methocarbamol (Robaxin) 500 MG tabletIndication [...] CT for stroke rule out 08/2023 at [facility] Neurology recommended outpatient MRI with and w/o gadolinium Healthcare maintenance 03/20/2023 Screening for colon cancer 03/20/2023 Acute pain of both shoulders 03/20/2023 Screening mammogram for breast cancer 03/20/2023 Moderate episode of recurren t major depressive disorder (CMS/HCC) 02/06/2023 Assessment & Plan (03/12/2023 9:54 AM [...] services placed on 02/12 with Migel Brown [phone]. Mathew was also referred to the Email Administrator program with [facility]. Patient agreed with the plan. At this time Mathew Herrmann meets criteria for Visit Diagnoses: Problem List Items Addressed This Visit Other Alcohol use disorder, moderate, dependence (CMS/HCC) MDD (major depressive disorder) MARTHA (generalized anxiety disorder) Patient ready to address current needs Yes Strengths include readiness and willingness to change. PLAN: 1. Follow up with [facility]: Not recommended for follow-up 2. Patient goal is to gradually stop alcohol consumption and start individual therapy. 3. Behavioral Recommendations a. OP individual therapy b. Referral for Email Administrator with [facility] c. Incorporate self-care and coping [...] her life PLAN: 1. Follow up with [facility]: Not recommended for follow-up 2. Patient [...] services placed on 02/12 with Migel Brown [phone]. Mathew was also referred to the Email Administrator program with [facility]. Patient agreed with the plan. At this time Mathew Herrmann meets criteria for Visit Diagnoses: Problem List Items Addressed This Visit Other Alcohol use disorder, moderate, dependence (CMS/HCC) MDD (major depressive disorder) MARTHA (generalized anxiety disorder) Patient ready to address current needs Yes Strengths include readiness and willingness to change. PLAN: 1. Follow up with [facility]: Not recommended for follow-up 2. Patient goal is to gradually stop alcohol consumption and start individual therapy. 3. Behavioral Recommendations a. OP individual therapy b. Referral for Email Administrator with [facility] c. Incorporate self-care and coping skills into daily routine Alcohol use disorder, moderate, dependence (CMS/ HCC) 02/01/2023 Assessment & Plan (10/27/2023 12:07 PM EDT): In eraly remission Recommend continued abstinence to the greatest degree possible Assessment & Plan (09/15/2023 6:09 AM EDT): Cutting back on her own Knows about groups, medication aids Assessment & Plan (03/20/2023 10:50 AM EDT): Declines Naltrexone Will work with inhouse temporarily Consider AUD services at [facility] Assessment & Plan (02/01/2023 11:01 [...] organization. Date Type Department Care Team Description 03/11/2025 Refill [facility] [address] [place] [phone] Cici Linn DO Tobacco abuse 03/08/2025 9:40 AM EDT Procedure Visit [facility] [address] [place] [address] Gely Gonzalez MD Cervical cancer screening (Primary Dx); Encounter for immunization 03/08/2025 Travel 02/26/2025 Refill [facility] [address] [place] [phone] Alissa Farnsworth MD Gait instability; Multifactorial gait disorder 02/24/2025 Results Follow-Up [facility] [address] [place] [address] Gely Gonzalez MD HIV-1/2 Antigen and Antibodies, Fourth Generation, with Reflexes, CBC auto differential, TSH W/Reflex to FT4, Additional followed-up results: 3 02/23/2025 9:15 AM EDT Office Visit [facility] [address] [place] [address] Gely Gonzalez MD Vertebral artery stenosis, asymptomatic, right (Primary Dx); Encounter for immunization; Breast cancer screening by mammogram; Encounter for health-related screening; Palpitations; Urinary frequency; Mixed stress and urge urinary incontinence; Hypokalemia 02/23/2025 Travel 02/22/2025 Telephone [facility] [address] [place] [address] Alissa Farnsworth MD Chart Prep 02/21/2025 Travel 02/18/2025 Refill [facility] [address] [place] [phone] Alissa Farnsworth MD 02/16/2025 Patient Outreach [facility] [address] [place] [phone] Alissa Farnsworth MD Pre-visit Planning (Pre visit planning LVM ) 02/01/2025 Refill [facility] [address] [place] [phone] Alissa Farnsworth MD Hypokalemia 01/20/[address] [address] Alissa Farnsworth MD 01/19/[address] [address] Alissa Farnsworth MD Gait instability; Multifactorial gait disorder 12/28/2024 Telephone [facility] [address] [place], [place] [phone] Alissa Farnsworth MD Durable Medical Equipment 12/27/[address] [address] Alissa Farnsworth MD Results 12/23/2024 11:30 AM EDT Office Visit [address] [address] Alissa Farnsworth MD Gait instability (Primary Dx); Screening mammogram for breast cancer; Localized swelling of left lower extremity; Vitamin B12 deficiency; Alcohol use disorder, moderate, dependence (CMS/HCC); Primary hypertension; Multiple falls; Multifactorial gait disorder; MARTHA (generalized anxiety disorder); Moderate episode of recurrent major depressive disorder (CMS/HCC) 12/23/2024 Travel 12/22/[address] [address] Alissa Farnsworth MD Chart prep 12/22/2024 Travel 12/20/[address] [address] Alissa Farnsworth MD telephone call; Call Back Request from Last 3 Months Immunizations Immunization Administration [...] 03/08/2025 9:40 AM EDT Plan of Treatment Upcoming Encounters Date Type Department Care Team (Late st Contact Info) Description 03/28/2025 11:15 AM EDT Office Visit [facility] [address] [place] [address] Syed Ceron MD [address] [place], [place] [phone] Health Maintenance Due Date Last Done Comments CT Colonography 1965 Colonoscopy 1965 FIT 1965 Sigmoidoscopy 1965 Mammogram 2007 Zoster Vaccines (1 of 2) 11/13/2017 FOBT 04/14/2024 04/14/2023 Hepatitis B Vaccines (3 of 3 - 19+ 3-dose series) 03/09/2025 11/01/2024, 09/06/2024 Disability Screening 07/26/2025 07/26/2024 SDOH Screening 07/26/2025 07/26/2024 Depression Monitoring 08/23/2025 02/23/2025, 025 Alcohol/Substance Use Screening 12/23/2025 12/23/2024 Tobacco Screening 03/08/2026 03/08/2025 Colorectal Cancer Screening 04/14/2026 FIT DNA/Cologuard 04/14/2026 04/14/2023 Pap Smear 03/08/2028 03/08/2025 Lipid Panel 03/19/2028 03/19/2023 Cervical Cancer Screening 03/08/2030 HPV/Cotest 03/08/2030 03/08/2025 DTaP/Tdap/Td Vaccines (2 - Td or Tdap) [...] Procedure Name Priority Date/Time Associated Diagnosis Comments PAP SMEAR Routine 03/08/2025 11:28 AM EDT Cervical cancer screening HPV DNA, LOW/HIGH RISK Routine 03/08/2025 10:00 AM EDT Cervical cancer screening MAGNESIUM Routine 02/23/2025 10:49 AM EDT Hypokalemia [...] Recently Relevant to Health Maintenance Results * Pap Smear (03/08/2025 11:28 AM EDT) Swab Cervical swab / Unknown 03/08/2025 11:28 AM EDT 03/09/2025 11:28 AM EDT [facility] - 03/14/2025 2:46 PM EDT ----- ------- Name: Mathew Herrmann Age/Sex: 59/F : 1965 Unit#: [id number] Attend Dr: Gely Gonzalez MD Re03/08/25 Status: DEP REF Location: [facility] Disch: ----- ------- SPEC : [id number] RECD: 03/09/25 STATUS: LESLIE INGRAM NUM: [id number] CELENA: 03/08/[address] [facility] [address]: Gely Gonzalez MD ENTERED: 03/09/25 SP TYPE: Pap Smr OTHR : ORDERED: Pap Smear Interpretation Satisfactory for evaluation. Negative for intraepithelial lesion or malignancy. HPV High Risk: Negative HPV Genotyping 16: Negative HPV Genotyping 18: Negative Clinical Information LMP: Postmenopausal Previous PAP test: Unknown date, WNL Other history: Cervical cancer sceening Material Received ThinPrep-Cervical PAP Disclaimer As of April 07, 2024, the technical services to include automated prescreening performed by the ThinPrep Imaging System, PAP screening and HPV testing will be performed at [facility] (CLIA #[id number]), [address] [place] [address]. Testing for HPV was performed using the [employer]Contact SurgicalAS 6800 system. The presence of HPV in the female genital tract is associated with a number of diseases, including cervical carcinoma. The HPV DNA high risk pool tests for HPV 31, 33, 35, 39, 45, 51, 52, 56, 58, 59, 66 and 68. The testing for HPV 16 and 18 genotypes has also been performed. A positive result indicates detection of nucleic acid sequences from one or more subtypes, whereas a negative result indicates such sequences were not detected. All professional services are performed by [facility] ([address] [place] [address], [place] [address]; ; CLIA #[id number]). The PAP Test is a screening procedure with the inherent possibility of both false negative and false positive results. Results should be interpreted in the context of historic and current clinical findings. Reliability of the PAP Test is enhanced by performing the test on a regular repetitive basis. ----- ------- Signed (signature on file) KOREY Gomez (ASCP) 03/14/25 1446 ----- ------- END OF REPORT us Gely Gonzalez MD LAB CYTOLOGY ORDERABLES Final Result [facility] [address] [place] [phone] * HPV High Risk with Reflex to Subtypes (03/08/2025 10:00 AM EDT) HPV High Risk Negative Negative [facility] HPV Genotype 16 Negative Negative [facility] HPV Genotype 18 Negative Negative [facility] Comment:HPV testing performe d at [facility] (CLIA#[id number]), [address] [place] [phone].Testing for HPV was performed using the [employer]ADI 6800system. The presence of HPV in the female genital tract isassociated with a number of diseases, including cervicalcarcinoma. The HPV DNA high risk pool tests for HPV 31, 33,35, 39, 45, 51, 52, 56, 58, 59, 66 and 68. The testing forHPV 16 and 18 genotypes has also been performed. A positiveresult indicates detection of nucleic acid sequences fromone or more subtypes, whereas a negative result indicatessuch sequences were not detected. Pap Vial 03/08/2025 10:0 0 AM EDT 03/09/2025 11:28 AM EDT Gely Gonzalez MD LAB BLOOD ORDERABLES Final Re sult Performing Organization Address [facility] Co de Phone Number [facility] [address] [place] [phone] * TSH W/Reflex to FT4 (02/23/2025 10:49 AM EDT) Only the most recent of2 resultswithin the time period is included. TSH reflex Free T4 1.39 0.32 - 4.0 uIU/mL [facility] Blood Venous blood specimen / Unknown 02/23/2025 10:49 AM EDT 02/23/2025 2:35 PM EDT us Gely Gonzalez MD LAB BLOOD ORDERABLES Final Re sult Performing Organization Address [facility] Co de Phone Number [facility] [address] [place] [phone] * (ABNORMAL) CBC auto differential (02/23/2025 10:49 AM EDT) White Blood Count 10.1 4.8 - 10.8 X10*3/uL [facility] Red Blood Count 4.00(L) 4.20 - 5.50 X10*6/uL [facility] Hemoglobin 13.2 12.0 - 16.0 g/dl [facility] Hematocrit 40.5 37.0 - 47.0 % [facility] Mean Corpuscular Volume 101.3(H) 80.0 - 98.0 fL [facility] Mean Corpuscular Hemoglobin 33.0 27.0 - 33.0 pg [facility] Mean Corpuscular HGB Conc 32.6 31.0 - 35.0 g/dl [facility] Red Cell Distribution Width 13.0 11.0 - 16.0 % [facility] Platelet Count 228 160 - 400 X10*3/uL [facility] Mean Platelet Volume 10.8 9.4 - 12.3 fL [facility] Neutrophils Percent Auto 64.5 45 - 73 % [facility] Imm Gran Pct Auto 0.4 0.0 - 0.4 % [facility] Lymphocytes Percent Auto 25.4 20 - 40 % [facility] Monocytes Percent Auto 5.9 2 - 11 % [facility] Eosinophils Percent Auto 3.3 0 - 4 % [facility] Basophils Percent Auto 0.5 0 - 2 % [facility] NRBC Pct Auto 0.0 0.0 - 0.2 /100WBC [facility] Neutrophils Absolute Auto 6.5 2.0 - 8.3 x10*3/uL [facility] Imm Gran Abs Auto 0.04(H) 0.00 - 0.03 X10*3/uL [facility] Lymphocytes Absolute Auto 2.6 1.2 - 4.9 X10*3/uL [facility] Monocytes Absolute Auto 0.6 0.1 - 1.2 X10*3/uL [facility] Eosinophils Absolute Auto 0.3 0.0 - 0.4 X10*3/uL [facility] Basophils Absolute Auto 0.1 0.0 - 0.2 X10*3/uL [facility] NRBC Abs Auto 0.000 0.0 - 0.012 X10*3/uL [facility] Blood Venous blood specimen / Unknown 02/23/2025 10:49 AM EDT 02/23/2025 2:23 PM EDT Gely Gonzalez MD LAB BLOOD ORDERABLES Final Re sult Performing Organization Address [facility]/ZIP Co de Phone Number [facility] [address] [place] [address] [phone] * HIV-1/2 Antigen and Antibodies, Fourth Generation, with Reflexes (02/23/2025 10:49 AM EDT) HIV AB/AG Nonreactive Nonreactive [facility] Comment:HIV-1 p24 Ag and/or HIV-1/HIV-2 Ab not detected.A test result that is nonreactive does not exclude thepossibility of exposure to or infection with HIV-1 and/orHIV-2. Nonreactive results in this assay for individualswith prior exposure to HIV-1 and/or HIV-2 may be due toantigen and antibody levels that are below the limit ofdetection of this assay.The [employer] HIV Ag/Ab Combo assay result andsupplemental assay results should be interpreted inconjunction with the patient's clinical presentation,history and other laboratory results. If the results areinconsistent with clinical evidence, additional testing issuggested to confirm the result. Blood Venous blood specimen / Unknown 02/23/2025 10:49 AM EDT 02/23/2025 2:35 PM EDT us Gely Gonzalez MD LAB BLOOD ORDERABLES Final Re sult Performing Organization Address [facility]/ZIP Co de Phone Number [facility] [address] [place] [address] [phone] * Magnesium (02/23/2025 10:49 AM EDT) Magnesium 1.7 1.6 - 2.6 mg/dL [facility] Blood Venous blood specimen / Unknown 02/23/2025 10:49 AM EDT 02/23/2025 2:35 PM EDT us Gely Gonzalez MD LAB BLOOD ORDERABLES Final Re sult Performing Organization Address [facility] Co de Phone Number [facility] [address] [place] [phone] [phone] * Basic Metabolic Panel (02/23/2025 10:49 AM EDT) Sodium 144 135 - 145 mmol/L [facility] Potassium 3.6 3.3 - 5.1 mmol/L [facility] Chloride 105 96 - 108 mmol/L [facility] Carbon Dioxide 29 22 - 29 mmol/L [facility] Anion Gap 14 12 - 20 [facility] Urea Nitrogen (BUN) 9 9 - 16 mg/dL [facility] Creatinine, Serum 0.63 0.5 - 1.4 mg/dL [facility] Estimated Glomerular Filt Rate >60 [facility] Comment:Chronic Kidney Disea se: Estimated GFR < 60 mL/min/1.22u2Rkmjbw Kidney Disease: Estimated GFR < 15 mL/min/1.73m2 Glucose 99 60 - 115 mg/dL [facility] Calcium 9.9 8.4 - 10.2 mg/dL [facility] Blood Venous blood specimen / Unknown 02/23/2025 10:49 AM EDT 02/23/2025 2:35 PM EDT us Gely Gonzalez MD LAB BLOOD ORDERABLES Final Re sult Performing Organization Address [facility] Co de Phone Number [facility] [address] [place] [address] [phone] * ECG 12 lead (02/23/2025 10:28 AM EDT) Narrative Gely Gonzalez MD - 02/23/2025 10:28 AM EDT Regular rhythm RR 80 bpm High T wave, but not hyperacute Normal axis us Gely Gonzalez MD ECG ORDERABLES Final Result * (ABNORMAL) Urinalysis, Complete, with Reflex to Culture (02/23/2025 12:00 AM EDT) Color Urine Dark Yellow [facility] Appearance Urine Clear [facility] PH 6.5 5.0 - 9.0 [facility] Glucose Urine UA Negative Negative mg/dL [facility] Urine Blood Negative Negative [facility] Specific [place] - Urine 1.020 1.005 - 1.025 [facility] Urine Protein 30 (1+)(A) Neg-Trace mg/dL [facility] Urine Ketones Trace Negative mg/dL [facility] Nitrite Urine Negative Negative [facility] Leukocyte Esterase Urine Negative Negative [facility] RBC Urine 0-2 0 - 2 /HPF [facility] Urine WBC 0-5 0 - 5 /HPF [facility] Urine Squamous Epithelial Cell 6-10 0 - 2 /HPF [facility] Urine Bacteria 1+ None Seen [facility] Hyaline Casts, Urine 0-2 0 - 2 /LPF [facility] Urine 02/23/2025 02/23/2025 Narrative [facility] - 02/23/2025 2:34 PM EDT [id number], Clean Catch us Gely Gonzalez MD LAB URINE ORDERABLES Final Re sult [facility] [address] [place] [phone] * XR Knee 3 Views Left (12/23/2024 11:58 AM EDT) Anatomical Region Laterality Modality Lower Extremities, Knee Left Radiogra phic Imaging 12/23/2024 11:5 8 AM EDT Narrative 12/23/2024 1:08 PM EDT [address] [address] XRay Report Signed Patient: Mathew Herrmann MR#: [id number] 15 : 1965 Acct:[id number] Age/Sex: 59 / F ADM Date: 12/23/24 Loc: [facility] Attending Dr: Alissa Farnsworth MD Ordering Physician: Alissa Farnsworth Date of Service: 12/23/24 Procedure(s): XR knee LT 3V Accession Number(s): [id number] cc: Alissa Farnsworth EXAMINATION: XR KNEE, LEFT [...] 12/23/24 1304 DD/ 1158 TD/TT: 12/23/24 1210 [employer]: Procedure Note Donotuseinterpreter, Image - 12/23/2024 [place] [address] XRay Report Signed Patient: Randy Herrmann#: [id number] 15 : 1965Acct:[id number] Age/Sex: 59 / FADM Date: 12/23/24 Loc: [facility] Attending Dr: Alissa Farnsworth MD Ordering Physician: Alissa Farnsworth Date of Service: 12/23/24 Procedure(s): XR knee LT 3V Accession Number(s): [id number] cc: Alissa Farnsworth EXAMINATION: XR KNEE, LEFT [...] 12/23/24 1304 DD/ 1158 TD/TT: 12/23/24 1210 [employer]: Alissa Farnsworth MD IMG XR PROCEDURES Edited Resul t - Final * (ABNORMAL) Vitamin B12/Folate, Serum Panel (12/23/2024 11:53 AM EDT) Vitamin B12 927(H) 200 - 900 pg/mL [facility] Comment:NORMAL 200-900 PG/ML INDETERMINATE 160-199 PG/ML DEFICIENT < 160 PG/ML Folate >20.0 > or = 4.0 ng/mL [facility] Comment:Reference Values:> o r = 4.0 ng/mL< 4.0 ng/mL suggests folate deficiency Methotrexate, aminopterin and folinic acid(leucovorin) are chemotherapeutic agents whose molecularstructures are similar to folate; therefore, the Architectfolate assay cannot be used for patients using these drugs. Blood Venous blood specimen / Unknown 12/23/2024 11:53 AM EDT 12/23/2024 2:10 PM EDT Alissa Farnsworth MD LAB BLOOD ORDERABLES Final Res ult [facility] [address] [place] [phone] * XR Ankle 3+ Views Left (12/23/2024 11:52 AM EDT) Anatomical Region Laterality Modality Lower Extremities, Ankle Left Radiogr aphic Imaging 12/23/2024 11:5 2 AM EDT Narrative 12/23/2024 1:09 PM EDT [address] [address] XRay Report Signed Patient: Mtahew Herrmann MR#: [id number] 15 : 1965 Acct:[id number] Age/Sex: 59 / F ADM Date: 12/23/24 Loc: [facility] Attending Dr: Alissa Farnsworth MD Ordering Physician: Alissa Farnsworth Date of Service: 12/23/24 Procedure(s): XR ankle LT min 3V Accession Number(s): [id number] cc: Alissa Farnsworth EXAMINATION: XR ANKLE, LEFT [...] 12/23/24 1306 DD/ 1152 TD/TT: 12/23/24 1210 [employer]: Procedure Note Donotuseinterpreter, Image - 12/23/[address] [address] XRay Report Signed Patient: Mathew Herrmann#: [id number] 15 : 1965Acct:[id number] Age/Sex: 59 / FADM Date: 12/23/24 Loc: [facility] Attending Dr: Alissa Farnsworth MD Ordering Physician: Alissa Farnsworth Date of Service: 12/23/24 Procedure(s): XR ankle LT min 3V Accession Number(s): [id number] cc: Alissa Farnsworth EXAMINATION: XR ANKLE, LEFT [...] 12/23/24 1306 DD/ 1152 TD/TT: 12/23/24 1210 [employer]: us Alissa Farnsworth MD IMG XR PROCEDURES Edited Resul t - Final * XR Tibia Fibula 2 Views Left (12/23/2024 11:50 AM EDT) Anatomical Region Laterality Modality Lower Extremities, Lower Leg Left Rad iographic Imaging 12/23/2024 11:5 0 AM EDT Narrative 12/23/2024 1:10 PM EDT [address] [address] XRay Report Signed Patient: Mathew Herrmann MR#: [id number] 15 : 1965 Acct:[id number] Age/Sex: 59 / F ADM Date: 12/23/24 Loc: .[facility] Attending Dr: Alissa Farnsworth MD Ordering Physician: Alissa Farnsworth Date of Service: 12/23/24 Procedure(s): XR tibia fibula LT 2V Accession Number(s): [id number] cc: Alissa Farnsworth EXAMINATION: XR TIBIA AND [...] 12/23/24 1307 DD/ 1150 TD/TT: 12/23/24 1210 [employer]: Procedure Note Donotsimbainterpreter, Image - 12/23/[address] [address] XRay Report Signed Patient: Mathew Herrmann#: [id number] 15 : 1965Acct:[id number] Age/Sex: 59 / FADM Date: 12/23/24 Loc: [facility] Attending Dr: Alissa Farnsworth MD Ordering Physician: Alissa Farnsworth Date of Service: 12/23/24 Procedure(s): XR tibia fibula LT 2V Accession Number(s): [id number] cc: Alissa Farnsworth EXAMINATION: XR TIBIA AND [...] 12/23/24 1307 DD/ 1150 TD/TT: 12/23/24 1210 [employer]: Alissa Farnsworth MD IMG XR PROCEDURES Edited Resul t - Final * Hepatitis C Antibody with Reflex to HCV, RNA, Quantitative, Real-Time PCR (08/09/2024 8:56 AM EST) Hepatitis C Antibody Nonreactive Nonreactive [facility] Comment:Antibodies to HCV no t detected; does not exclude early acuteHCV infection. Blood Venous blood specimen / Unknown 08/09/2024 8:56 AM EST 08/09/2024 2:41 PM EST us Syed Ceron MD LAB BLOOD ORDERABLES Final Resul t [facility] [address] [place] [address] [phone] * Cologuard?? colon cancer screening (04/14/2023 9:40 AM EDT) Cologuard Result Negative Negative 04/18/20 7:07 PM EDT [facility] (CLIA #:[id number]) Comment: NEGATIVE TEST RESULT. A negative Cologuard [...] Larsen et al, N Engl J Med 2014;370(14):0212-4505) The normal value (reference range) for this assay is negative. COLOGUARD RE-SCREENING RECOMMENDATION: Periodic colorectal cancer screening is an important part of preventive healthcare for asymptomatic individuals at average risk for colorectal cancer. Following a negative Cologuard result, the [place] [employer] and U.S. Multi-Society Task Force screening guidelines recommend a Cologuard re-screening interval of 3 years. References: [place] [employer] Guideline for Colorectal Cancer Screening: https://www.cancer.org/cancer/mdzqa-wzbrbj-zqwavu/aenftwcyl-jysjwowbo-qxcbnxz/ac s-rec ommendations.html.; Caesar KAISER, Dano HATFIELD, Hyacinth GEORGE, Colorectal Cancer Screening: Recommendations for Physicians and Patients from the U.S. Multi-Society Task Force on Colorectal Cancer Screening , Am J Gastroenterology 2017; 112:0380-9552. TEST DESCRIPTION: Composite algorithmic analysis of stool [...] Larsen et al, N Engl J Med 2014;370(14):0566-5360.) Cologuard may produce a false negative or false positive result (no colorectal cancer or precancerous polyp present at colonoscopy follow up). A negative Cologuard test result does not guarantee the absence of CRC or advanced adenoma (pre-cancer). The current Cologuard screening interval is every 3 years. ([place] [employer] and U.S. Multi-Society Task Force). Cologuard performance data in a 10,000 patient pivotal study using colonoscopy as the reference method can be accessed at the following location: www.Snagsta.Episona/results. Additional description of the Cologuard test process, warnings and precautions can be found at www.NealyWearrd.com. Stool specimen (specimen) 04/14/2023 9:40 AM EDT 04/15/2023 2:03 PM EDT Alissa Farnsworth MD LAB MOLECULAR DIAGNOSTICS SURENDRA CAMACHO Final Result [facility] (CLIA #:[id number]) [address] [place] [address], * (ABNORMAL) Lipid Panel, Standard (03/19/2023 12:09 PM EDT) Triglycerides 129 <150 mg/dL [facility] Comment:Desirable Triglyceri de: less than 150 mg/dLBorderline High Triglyceride 150-199 mg/dLHigh Triglyceride: 200-499 mg/dLVery High Triglyceride: greater than or equal to 5OO mg/dL Cholesterol 215(H) <200 mg/dL [facility] Comment:Desirable Cholestero l: less than 200 mg/dLBorderline High Cholesterol: 200-239 mg/dLHigh Cholesterol: greater than 239 mg/dL LDL Cholesterol Calculated 152(H) <100 mg/dL [facility] Comment:Desirable LDL: less than 100 mg/dLNear Optimal/Above Optimal LDL: 110- 129 mg/dLBorderline High LDL: 130-159 mg/dLHigh LDL: 160-189 mg/dLVery High LDL: greater than or equal to 190 mg/dL HDL Cholesterol 38(L) >40 mg/dL [facility] Comment:Desirable HDL: great er than 40 mg/dL Note: This HDL assay may give artificially low results in patients with liver disease. Blood Venous blood specimen / Unknown 03/19/2023 12:09 PM EDT 03/19/2023 1:13 PM EDT us Alissa Farnsworth MD LAB BLOOD ORDERABLES Final Res ult [facility] [address] [place] [address] [phone] from Last 3 Months or Most Recently Relevant to Health Maintenance Insurance [facility] C3 Care Teams Outsole Leveler Relationship Specialty Start Date End Date Gely Gonzalez MD [address] [place] [phone] PCP - General Family Medicine 02/23/25 Syed Ceron MD Consulting Physician Alcohol and Drug Specialist 02/15/24 Benji De La Garza MD Consulting Physician Neurology 10/28/23
--- OUTSIDE RECORDS SUMMARY | 2025-03-21 12:37 | XMS_ITS | Encounter Summary ---
Author Organization [employer] Address [address] [place] [address] 7 [place] [address] Care Team Providers Care Lockstitch Zipper Setter Name Role Phone Alissa Farnsworth MD Primary Care Provider [phone] Gely Gonzalez MD Primary Care Provider [phone] Reason for Visit * Reason Onset Date Comments Call Back Request 11/28/2023 Encounter Details Date Type Department Care Team ([facility] st Contact Info) Description 11/28/2023 Telephone [facility] [address] [place] [address] Alissa Farnsworth MD [address] [place] [address] Call Back Request Social History Tobacco Use [...] unreadable. 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 Pt needs to turn in form as soon as possible. Please contact pt at [phone] documented in this encounter Plan of Treatment Upcoming Encounters Date Type Department Care Team (Late st Contact Info) Description 03/28/2025 11:15 AM EDT Office Visit [facility] [address] [place] [address] Syed Ceron MD [address] [place] [address] documented as of this encounter Visit Diagnoses Not on filedocumented in this encounter Additional Health Concerns Assessment Noted Time PHQ-9 Depression Total Score: 19 023 10:36 PM EDT documented as of this encounter Care Teams Lockstitch Zipper Setter Relationship Specialty Start Date End Date Alissa Farnsworth MD [address] [place] [address] PCP - General Family Medicine 02/01/23 02/22/25 Gely Gonzalez MD [address] [place] [phone] PCP - General Family Medicine 02/23/25 Syed Ceron MD Consulting Physician Alcohol and Drug Specialist 02/15/24 Benji De La Garza MD Consulting Physician Neurology 10/28/23 documented as of this encounter
--- OUTSIDE RECORDS SUMMARY | 2025-03-21 12:38 | XMS_ITS | Clinical Summary ---
Author Organization [facility] Address [address] [place] [address] Care Team Providers Care Attendant Child Activity Name Role Phone Unavailable Primary Care Provider Unavailabl e Source Comments PLEASE NOTE, if this patient is a minor, it may be UNLAWFUL to discuss sensitive information that is contained in these records (such as FAMILY PLANNING, MENTAL HEALTH or SUBSTANCE ABUSE) with the minor patient's parent or other person without the patient's specific authorization.[facility] Allergies No known active allergies Medications naltrexone (DEPADE) 50 mg tablet Take 50 mg by mouth once daily. Active ibuprofen 600 mg tablet Take 600 mg by mouth every 6 (six) hours. 5 Active gabapentin (NEURONTIN) 600 mg tablet Take 600 mg by mouth 3 (three) times daily. Active amLODIPine (NORVASC) 5 mg tablet Take 5 mg by mouth once daily. Active folic acid (FOLVITE) 1 mg tablet Take 1,000 mcg by mouth once daily. Active magnesium oxide (MAG-OX) 400 mg (241.3 mg magnesium) tablet Take 400 mg by mouth daily. 5 Active fluticasone (FLONASE) 50 mcg/actuation nasal spray Place 1 [place] in both nostrils once daily. Active ibuprofen 600 mg tablet Take 600 mg by mouth 3 (three) times daily as needed. 5 Active potassium chloride (MICRO-K 10 EXTENCAPS) 10 mEq CR capsule Take 10 mEq by mouth once daily. 5 Active methocarbamoL (ROBAXIN) 500 mg tablet Take 500 mg by mouth twice a day. 5 Active nicotine (NICODERM, STEP 3) 7 mg/[address] 1 Patch onto the skin once daily (every 24 hours). 5 Active cyanocobalamin (VITAMIN B-12) 1,000 mcg tablet Take 500 mcg by mouth. Active hydrOXYzine HCL (ATARAX) 25 mg tablet Take 1 Tablet by mouth nightly at bedtime as needed for anxiety or sleep. 90 Tablet 5 Active ARIPiprazole (ABILIFY) 5 mg tablet Take 1 Tablet by mouth every morning. 30 Tablet 5 Active escitalopram (LEXAPRO) 10 mg tablet Take 1 Tablet by mouth daily for 90 days. 90 Tablet 5 06/13/20 25 Active escitalopram (LEXAPRO) 10 mg tablet Take 10 mg by mouth daily. 5 03/15/20 25 Discontinu ed(Reorder (E-Cancel Not Sent)) Active Problems Problem Noted Date Diagnosed Date Bipolar affective disorder, currently depressed, moderate 03/16/2025 Palpitations 02/23/2025 Urinary frequency 02/23/2025 Mixed stress and urge urinary incontinence 02/23 Multiple falls 12/27/2024 Vitamin B12 deficiency 12/27/2024 Localized swelling of left lower extremity 12/27 Multifactorial gait disorder 09/15/2023 Vertebral artery stenosis, asymptomatic, right 0 09/15/2023 Overview (03/16/2025): August 2023, started on ASA by neurology Acute pain of both shoulders 03/20/2023 MARTHA (generalized anxiety disorder) 02/06/2023 Alcohol use disorder, moderate, dependence 02/01 Tobacco abuse 02/01/2023 Hypertension 02/01/2023 Housing or economic circumstance 02/01/2023 Encounters Date Type Department Care Team Description 03/15/2025 8:45 AM EDT Behavioral Health Visit [facility] [address] [place] [phone] Jeremie Mattson, MAURY from Last 3 Months Social History Tobacco Use Types Packs/Day Years Used Date Smoking Tobacco: Never Assessed Comments Unknown Sex and Gender Information Value Date Recorded Sex Assigned at Female 01/04/2025 10:35 AM PDT Legal Sex Female 10:35 AM PDT Gender Identity Female 01/04/2025 10:35 AM PDT Sexual Orientation Not on file Plan of Treatment Upcoming Encounters Date Type Department Care Team ([facility] st Contact Info) Description 04/05/2025 11:15 AM EDT Behavioral Health Visit [facility] [address] [place] [phone] Jeremie Mattson, HNP [address] [facility] [place] [phone] Health Maintenance Due Date Last Done Comments Anxiety Screening 1967 Depression Monitoring 1967 HPV Screening 1965 Pap + HPV 1967 Cervical Cancer Screening 11/13/1988 Pap Smear 11/13/1988 Breast Cancer Screening (Mammogram) 2007 CT Colonography 11/13/2012 Colonoscopy 11/13/2012 Flexible Sigmoidoscopy 11/13/2012 Imm-Zoster, Recombinant (1 of 2) 11/13/2017 Lipid Screening 03/19/2024 03/19/2023 FIT/gFOBT 04/14/2024 04/14/2023, 04/14/2023 Alcohol and Drug Screen 06/16/2024 [id number] ( season) 2025 07/03/2024, 05/25/2021, 11/04/2020, Additional history exists Imm-Hepatitis B (3 of 3 - 19 + 3-dose series) 03/09/2025 11/01/2024, 09/06/2024 Diabetes Screening 02/23/2026 02/23/2025 Tobacco Cessation Counseling (#1) 03/15/2026 Tobacco Screening 03/15/2026 03/15/2025 Colorectal Cancer Screening 04/14/2026 Fecal DNA 04/14/2026 04/14/2023, 04/14/2023 Imm-DTaP/Tdap/Td (2 - Td or Tdap) 02/23/2035 025 Imm-Pneumococcal 50+ Completed 07/26/2024, 04/24/20 17 Hepatitis C Screening Completed 08/09/2024 HIV Screening Completed 02/23/2025, 02/23/2025 Imm-Influenza Completed 03/08/2025, 04/17, 03/19/2023, Additional history exists Cervical Ablation/Cold-Knife Conization Discontinued Cervical Cryotherapy Discontinued Colposcopy Discontinued Endometrial Biopsy Discontinued Excision/Leep Discontinued HPV Genotyping Discontinued Vaginal Pap Discontinued Vulvoscopy Discontinued Insurance [facility] [place] MEDICAID
== END 2025-03-21 10:38 | disposition home or self-care (01) ==
LOC: HO.MAMMO 10:37
PROVIDERS: PCP Family Medicine; Visit Provider General Practice
DX: Z12.31 Encounter for screening mammogram for malignant neoplasm of breast (principal)
CPT/HCPCS: 77063; 77067

== ENCOUNTER → 2025-03-21 11:00 | Outpatient (BNV) | payer MEDICAID, SELFPAY | PROVIDERS: PCP Family Medicine; Visit Provider Internal Medicine | DX: Z12.31 Encounter for screening mammogram for malignant neoplasm of breast (principal) | CPT/HCPCS: 77063; 77067 ==